=== PATIENT | male | born 1930 | race Caucasian/White ===

== ENCOUNTER 2018-11-10 12:20 | Emergency (ER) | payer MEDICARE, BC ==
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
[2018-11-10 12:30] VITALS: BP 132/60
[2018-11-10] MEDS: Silver Sulfadiazine 1% Crm 400 GM Jar TOP ONE (13:10)
[2018-11-10] MEDS: Diphtheria,Pertussis(Acell),Tetanus Vaccine 0.5 ML Syringe IM ONE (13:11)
== END 2018-11-10 13:35 | disposition home or self-care (01) ==
LOC: MW.ED 12:20
DX: T24.311A Burn of third degree of right thigh, initial encounter (principal); T31.0 Burns involving less than 10% of body surface; Z23 Encounter for immunization; I10 Essential (primary) hypertension; E78.00 Pure hypercholesterolemia, unspecified; I25.2 Old myocardial infarction; Z79.82 Long term (current) use of aspirin; Z79.899 Other long term (current) drug therapy; Z88.0 Allergy status to penicillin
CPT/HCPCS: 16020; 90471; 90715; 99283; A9270

== ENCOUNTER 2018-11-22 14:15 | Emergency (ER) | payer MEDICARE, BC ==
[2018-11-22] MEDS ORDERED: Sodium Chloride 0.9% 2.5 ML Syringe FLUSH PRN (14:57)
[2018-11-22] MEDS ORDERED: Sodium Chloride 0.9% 10 ML Syringe FLUSH PRN (14:57)
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
[2018-11-22] MEDS ORDERED: Sodium Chloride 0.9% 1,000 ML IV ONE (15:32)
--- NOTE | 2018-11-22 16:21 | CR ---
EXAMINATION: Abdominal series HISTORY: Constipation COMPARISON: None TECHNIQUE: AP and upright abdomen and AP chest FINDINGS: The lungs are clear without focal consolidation. Likely a trace right pleural effusion. Chronic interstitial prominence. The heart is borderline in size for technique. The cardiomediastinal silhouette is otherwise normal. There is no free air under the diaphragm. 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 No evidence of a small bowel obstruction. No calcifications project over the kidneys. No organomegaly. Osseous structures appear osteopenic. IMPRESSION: 1. Moderate amount of stool and gas within the colon most prominent within the rectum. 2. Possible trace right pleural effusion.
[2018-11-22 17:01] VITALS: BP 132/55
== END 2018-11-22 16:36 | disposition home or self-care (01) ==
LOC: MW.ED 14:15
DX: E86.0 Dehydration (principal); K59.00 Constipation, unspecified; E78.00 Pure hypercholesterolemia, unspecified; I10 Essential (primary) hypertension; I25.2 Old myocardial infarction; Z95.5 Presence of coronary angioplasty implant and graft; F17.210 Nicotine dependence, cigarettes, uncomplicated; Z79.82 Long term (current) use of aspirin; Z79.899 Other long term (current) drug therapy; Z79.01 Long term (current) use of anticoagulants
CPT/HCPCS: 36415; 74022; 80053; 85025; 96360; 99283; J7040; 99284

== ENCOUNTER 2019-01-08 08:38 | Emergency (ER) | payer MEDICARE, BC ==
--- NOTE | 2019-01-08 08:42 | EDM.PDOC ---
"ED HPI GENERAL MEDICAL PROBLEM - General Stated Complaint: weakness Time Seen by Provider: 01/08/19 08:42 Source of Information: Reports: Patient - History of Present Illness INITIAL COMMENTS - FREE TEXT/NARRATIVE: HISTORY AND PHYSICAL: History of present illness: []Patient reports that he is generally weak as he is 89 years old he is able ambulate in no distress He is in no distress no fever nausea vomiting chills sweats no chest pain shortness breath headache dizziness palpitation no urine symptoms, complains of constipation has not had a bowel movement in 3 days Review of systems: As per history of present illness and below otherwise all systems reviewed and negative. Past medical history: As per history of present illness and as reviewed below otherwise noncontributory. Surgical history: As per history of present illness and as reviewed below otherwise noncontributory. Social history: No reported history of drug or alcohol abuse. Family history: As per history of present illness and as reviewed below otherwise noncontributory. Physical exam: HEENT: Atraumatic, normocephalic, pupils reactive, negative for conjunctival pallor or scleral icterus, mucous membranes moist, throat clear, neck supple, nontender, trachea midline. Lungs: Clear to auscultation, breath sounds equal bilaterally, chest nontender. Heart: S1S2, regular, negative for clicks, rubs, or JVD. Abdomen: Soft, nondistended, nontender. Negative for masses or hepatosplenomegaly. Negative for costovertebral tenderness. Pelvis: Stable nontender. Genitourinary: Deferred. Rectal: Deferred. Extremities: Atraumatic, negative for cords or calf pain. Neurovascular unremarkable. Neuro: Awake, alert, oriented. Cranial nerves II through XII unremarkable. Cerebellum unremarkable. Motor and sensory unremarkable throughout. Exam nonfocal. Diagnostics: [CBC CMP UA troponin INR EKG Chest 1 view ] Therapeutics: [Normal saline 500 mL bolus Reglan 10 mg IV Reglan 5 mg by mouth daily when necessary MiraLAX] Clear liquid diet until bowel movement fruits and juices may assist in bowel movement Impression: Constipation [General Weakness] reported by patient |medical screening exam Definitive disposition and diagnosis as appropriate pending reevaluation and review of above. - Related Data Allergies Allergy/AdvReac Type Severity Reaction Status Date / Time Penicillins Allergy Syncope Verified 01/08/19 08:47 Home Meds: Home Meds Aspirin 1 tab PO DAILY 01/25/16 [History] Clopidogrel [Plavix] 1 tab PO DAILY 01/25/16 [History] Cod Liver Oil 1 tab PO DAILY 01/25/16 [History] Ergocalciferol (Vitamin D2) [Vitamin D] 2,000 mg PO DAILY 01/25/16 [History] Furosemide 1 tab PO DAILY 01/25/16 [History] Lisinopril 1 tab PO DAILY 01/25/16 [History] Metoprolol Succinate [Toprol XL] 1 tab PO DAILY 01/25/16 [History] Nitroglycerin [Nitrostat] 1 tab PO ASDIRECTED PRN 01/25/16 [History] Ranitidine [Zantac] 1 tab PO DAILY PRN 01/25/16 [History] Simvastatin [Zocor] 1 tab PO DAILY 01/25/16 [History] Sleep Aid 25 mg PO BEDTIME PRN 01/25/16 [History] amLODIPine [Norvasc] 1 tab PO DAILY 01/25/16 [History] Naproxen Sodium [All Day Pain Relief] 1 tab PO DAILY 01/08/19 [History] Ranitidine HCl [Ranitidine] 1 tab PO ASDIRECTED PRN 01/08/19 [History] Past Medical History HEENT History: Reports: Other (See Below) Other HEENT History: plugged ears about 8 years ago Cardiovascular History: Reports: High Cholesterol, Hypertension, [place] Respiratory History: Reports: None Gastrointestinal History: Reports: None Genitourinary History: Reports: None Musculoskeletal History: Reports: None Neurological History: Reports: Concussion Psychiatric History: Reports: None Endocrine/Metabolic History: Reports: None Hematologic History: Reports: None Immunologic History: Reports: None Oncologic (Cancer) History: Reports: Other (See Below) Other Oncologic History: 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 Dermatologic History: Reports: None - Past Surgical History Head Surgeries/Procedures: Reports: None HEENT Surgical History: Reports: None Cardiovascular Surgical History: Reports: Coronary Artery Stent Respiratory Surgical History: Reports: None GI Surgical History: Reports: None Male Surgical History: Reports: None Endocrine Surgical History: Reports: None Neurological Surgical History: Reports: None Musculoskeletal Surgical History: Reports: None Oncologic Surgical History: Reports: None Dermatological Surgical History: Reports: None Social & Family History - Family History Family Medical History: Noncontributory - Caffeine Use Caffeine Use: Reports: None ED ROS GENERAL - Review of Systems Review Of Systems: See Below ED EXAM, GENERAL - Physical Exam Exam: See Below Course - Vital Signs Last Recorded V/S: Last Vital Signs Temp 98.4 F 01/08/19 08:43 Pulse 84 01/08/19 08:43 Resp 20 01/08/19 08:43 BP 140/62 01/08/19 08:43 Pulse Ox 98 01/08/19 08:43 - Orders/Labs/Meds Orders: Active Orders 24 hr Category Date Time Status EKG Documentation Completion [RC] STAT Care 01/08/19 08:42 Active Sodium Chloride 0.9% [Normal Saline] 500 ml Med 01/08/19 09:00 Active IV STAT Medication Orders Sodium Chloride (Normal Saline) 500 mls @ 999 mls/hr IV STAT NETO Last Admin: 01/08/19 09:12 Dose: 999 mls/hr Labs: Laboratory Tests 01/08/19 01/08/19 01/08/19 Range/Units 09:05 09:05 09:05 WBC 8.05 (4.0-11.0) K/uL RBC 3.60 L (4.50-5.90) M/uL Hgb 11.5 L (13.0-17.0) g/dL Hct 33.9 L (38.0-50.0) % MCV 94.2 (80.0-98.0) fL MCH 31.9 (27.0-32.0) pg MCHC 33.9 (31.0-37.0) g/dL RDW Std Deviation 47.8 (28.0-62.0) fl RDW Coeff of Dalila 14 (11.0-15.0) % Plt Count 232 (150-400) K/uL MPV 9.30 (7.40-12.00) fL Neut % (Auto) 72.1 (48.0-80.0) % Lymph % (Auto) 18.9 (16.0-40.0) % [place] % (Auto) 7.8 (0.0-15.0) % Eos % (Auto) 1.0 (0.0-7.0) % Baso % (Auto) 0.2 (0.0-1.5) % Neut # (Auto) 5.8 H (1.4-5.7) K/uL Lymph # (Auto) 1.5 (0.6-2.4) K/uL [place] # (Auto) 0.6 (0.0-0.8) K/uL Eos # (Auto) 0.1 (0.0-0.7) K/uL Baso # (Auto) 0.0 (0.0-0.1) K/uL Nucleated RBC % 0.0 /100WBC Nucleated RBCs # 0 K/uL INR 1.12 Sodium 131 L (136-148) mmol/L Potassium 4.5 (3.5-5.1) mmol/L Chloride 99 (98-107) mmol/L Carbon Dioxide 21.0 (21.0-32.0) mmol/L BUN 18 (7.0-18.0) mg/dL Creatinine 1.8 H (0.8-1.3) mg/dL Est Cr Clr Drug Dosing 25.60 mL/min Estimated GFR (MDRD) 35.8 ml/min Glucose 133 H (74-106) mg/dL Calcium 9.1 (8.5-10.1) mg/dL Total Bilirubin 0.4 (0.2-1.0) mg/dL AST 13 L (15-37) IU/L ALT 11 L (14-63) IU/L Alkaline Phosphatase 81 (46-116) U/L Troponin I < 0.050 (0.000-0.056) ng/mL Total Protein 7.3 (6.4-8.2) g/dL Albumin 3.5 (3.4-5.0) g/dL Globulin 3.8 (2.6-4.0) g/dL Albumin/Globulin Ratio 0.9 (0.9-1.6) Urine Color Urine Appearance Urine pH (5.0-8.0) Ur Specific [place] (1.001-1.035) Urine Protein (NEGATIVE) mg/dL Urine Glucose (UA) (NEGATIVE) mg/dL Urine Ketones (NEGATIVE) mg/dL Urine Occult Blood (NEGATIVE) Urine Nitrite (NEGATIVE) Urine Bilirubin (NEGATIVE) Urine Urobilinogen (<2.0) EU/dL Ur Leukocyte Esterase (NEGATIVE) Urine RBC (0-2/HPF) Urine WBC (0-5/HPF) Ur Epithelial Cells (NONE-FEW) Urine Bacteria (NEGATIVE) Urine Mucus (NONE-MOD) 01/08/19 Range/Units 10:00 WBC (4.0-11.0) K/uL RBC (4.50-5.90) M/uL Hgb (13.0-17.0) g/dL Hct (38.0-50.0) % MCV (80.0-98.0) fL MCH (27.0-32.0) pg MCHC (31.0-37.0) g/dL RDW Std Deviation (28.0-62.0) fl RDW Coeff of Dalila (11.0-15.0) % Plt Count (150-400) K/uL MPV (7.40-12.00) fL Neut % (Auto) (48.0-80.0) % Lymph % (Auto) (16.0-40.0) % [place] % (Auto) (0.0-15.0) % Eos % (Auto) (0.0-7.0) % Baso % (Auto) (0.0-1.5) % Neut # (Auto) (1.4-5.7) K/uL Lymph # (Auto) (0.6-2.4) K/uL [place] # (Auto) (0.0-0.8) K/uL Eos # (Auto) (0.0-0.7) K/uL Baso # (Auto) (0.0-0.1) K/uL Nucleated RBC % /100WBC Nucleated RBCs # K/uL INR Sodium (136-148) mmol/L Potassium (3.5-5.1) mmol/L Chloride (98-107) mmol/L Carbon Dioxide (21.0-32.0) mmol/L BUN (7.0-18.0) mg/dL Creatinine (0.8-1.3) mg/dL Est Cr Clr Drug Dosing mL/min Estimated GFR (MDRD) ml/min Glucose (74-106) mg/dL Calcium (8.5-10.1) mg/dL Total Bilirubin (0.2-1.0) mg/dL AST (15-37) IU/L ALT (14-63) IU/L Alkaline Phosphatase (46-116) U/L Troponin I (0.000-0.056) ng/mL Total Protein (6.4-8.2) g/dL Albumin (3.4-5.0) g/dL Globulin (2.6-4.0) g/dL Albumin/Globulin Ratio (0.9-1.6) Urine Color YELLOW Urine Appearance CLEAR Urine pH 5.5 (5.0-8.0) Ur Specific [place] <= 1.005 (1.001-1.035) Urine Protein NEGATIVE (NEGATIVE) mg/dL Urine Glucose (UA) NEGATIVE (NEGATIVE) mg/dL Urine Ketones NEGATIVE (NEGATIVE) mg/dL Urine Occult Blood TRACE-INTACT H (NEGATIVE) Urine Nitrite NEGATIVE (NEGATIVE) Urine Bilirubin NEGATIVE (NEGATIVE) Urine Urobilinogen 0.2 (<2.0) EU/dL Ur Leukocyte Esterase NEGATIVE (NEGATIVE) Urine RBC RARE (0-2/HPF) Urine WBC NONE SEEN (0-5/HPF) Ur Epithelial Cells FEW (NONE-FEW) Urine Bacteria FEW (NEGATIVE) Urine Mucus LIGHT (NONE-MOD) Meds: Medications Generic Name Dose Route Start Last Admin Trade Name Kamran PRN Reason Stop Dose Admin Sodium Chloride 500 mls @ 999 mls/hr 01/08/19 09:00 01/08/19 09:12 Normal Saline IV 999 mls/hr STAT NETO Administration Discontinued Medications Generic Name Dose Route Start Last Admin Trade Name Kamran PRN Reason Stop Dose Admin Metoclopramide HCl 10 mg 01/08/19 10:01 01/08/19 10:13 Reglan IV 01/08/19 10:02 10 mg ONETIME ONE Administration Departure - Departure Time of Disposition: 10:25 Disposition: Home, Self-Care 01 Condition: Good Clinical Impression: Constipation Qualifiers: Constipation type: unspecified constipation type Qualified Code(s): K59.00 - Constipation, unspecified - Discharge Information Referrals: Kranthi Lim MD [Primary Care Provider] - Additional Instructions: MiraLAX 17 g by mouth daily as needed Clear liquid dieT until bowel movement Fruits and juices would be acceptable and may assist in bowel movement Medication as prescribed The following information is given to patients seen in the emergency department who are being discharged to home. This information is to outline your options for follow-up care. We provide all patients seen in our emergency department with a follow-up referral. The need for follow-up, as well as the timing and circumstances, are variable depending upon the specifics of your emergency department visit. If you don't have a primary care physician on staff, we will provide you with a referral. We always advise you to contact your personal physician following an emergency department visit to inform them of the circumstance of the visit and for follow-up with them and/or the need for any referrals to a consulting specialist. The emergency department will also refer you to a specialist when appropriate. This referral assures that you have the opportunity for follow-up care with a specialist. All of these measure are taken in an effort to provide you with optimal care, which includes your follow-up. Under all circumstances we always encourage you to contact your private physician who remains a resource for coordinating your care. When calling for follow-up care, please make the office aware that this follow-up is from your recent emergency room visit. If for any reason you are refused follow-up, please contact the [facility] emergency department at and asked to speak to the emergency department charge nurse. - My Orders Last 24 Hours: My Active Orders 01/08/19 08:42 EKG Documentation Completion [RC] STAT 01/08/19 09:00 Sodium Chloride 0.9% [Normal Saline] 500 ml IV STAT - Assessment/Plan Last 24 Hours: My Active Orders 01/08/19 08:42 EKG Documentation Completion [RC] STAT 01/08/19 09:00 Sodium Chloride 0.9% [Normal Saline] 500 ml IV STAT"
[2019-01-08] MEDS ORDERED: Sodium Chloride 0.9% 500 ML IV SCH (09:00)
[2019-01-08] MEDS ORDERED: Metoclopramide 10 MG/2 ML SDV IV ONE (10:01)
--- NOTE | 2019-01-08 10:14 | CR ---
INDICATION: Pain TECHNIQUE: Single view chest. FINDINGS: The lungs are clear. The heart, mediastinum and pulmonary vessels are of normal size. There is no evidence of pleural disease. IMPRESSION: No acute pulmonary process. Dictated by Vero Foote MD @ Jan 08 2019 10:12AM Signed by Dr. Vero Foote @ Jan 08 2019 10:13AM
[2019-01-08 10:15] LABS: CHLORIDE,CL 99 mmol/L (98-107); SODIUM,NA 131 mmol/L (136-148)
--- NOTE | 2019-01-08 10:16 | CR ---
Pain. KUB. Paucity of bowel gas. Abundant stool in the right colon. Air within nondilated loops bowel to level of the rectum. No free air. No abnormal masses or calcifications are seen. IMPRESSION: Nonspecific nonobstructive bowel gas pattern. Dictated by Vero Foote MD @ Jan 08 2019 10:13AM Signed by Dr. Vero Foote @ Jan 08 2019 10:14AM
[2019-01-08 11:39] VITALS: BP 126/54
== END 2019-01-08 10:50 | disposition home or self-care (01) ==
LOC: MW.ED 08:38
DX: K59.00 Constipation, unspecified (principal); R53.1 Weakness; I10 Essential (primary) hypertension; I25.2 Old myocardial infarction; Z95.5 Presence of coronary angioplasty implant and graft; Z88.0 Allergy status to penicillin; Z79.82 Long term (current) use of aspirin; Z79.899 Other long term (current) drug therapy
CPT/HCPCS: 71045; 74019; 80053; 81001; 84484; 85025; 85610; 93005; 96361; 96374; 99285; J2765; J7040; 99284

== ENCOUNTER 2019-02-18 15:19 | Observation (INO) | payer MEDICARE, BC ==
[2019-02-18] MEDS ORDERED: Sodium Chloride 0.9% 1,000 ML IV ONE (16:36)
--- NOTE | 2019-02-18 17:25 | CR ---
Indication: Pain, shortness of breath Technique: Chest 1 view Comparison: January 08, 2019 Findings/Impression: Cardiovascular and mediastinum: Heart size and vasculature are normal in caliber and appearance. Mediastinum is within normal limits. Lungs and pleural space: Lungs are clear. No sign of infiltrate or mass. No sign of pleural effusion. No pneumothorax. Bones and soft tissues: No significant findings. Dictated by Dana Crum MD @ Feb 18 2019 5:23PM Signed by Dr. Dana Crum @ Feb 18 2019 5:23PM
--- NOTE | 2019-02-18 17:25 | CR ---
Indication: Pain Technique: Two views right shoulder Comparison: None Findings: Bones: Alignment is normal. No fractures or bone lesions. Joint spaces: Mild degenerative changes in the acromioclavicular and glenohumeral joints. Soft tissues: Unremarkable. Impression: No acute abnormality. Dictated by Dana Crum MD @ Feb 18 2019 5:23PM Signed by Dr. Dana Crum @ Feb 18 2019 5:24PM
--- NOTE | 2019-02-18 17:37 | CT ---
INDICATION: Fall. COMPARISON: None. TECHNIQUE: Axial CT of the head without contrast. FINDINGS: Moderate generalized volume loss. Patchy low-attenuation change within the white matter consistent with chronic small vessel ischemic changes. No acute intracranial hemorrhage, acute infarct, mass effect, or fracture. No midline shift. No abnormal ventricular dilatation. Normal calvarium and skull base. Complete opacification of the right sphenoid sinuses. Remaining visualized paranasal sinuses and mastoid air cells are unremarkable. IMPRESSION: 1. No acute intracranial abnormality. 2. Moderate generalized cerebral volume loss. Chronic deep white matter small ischemic changes 3. Right sphenoid sinusitis Please note that all CT scans at this facility use dose modulation, iterative reconstruction, and/or weight-based dosing when appropriate to reduce radiation dose to as low as reasonably achievable. Dictated by Angel Betts MD @ Feb 18 2019 5:35PM Signed by Dr. Angel Betts @ Feb 18 2019 5:36PM
--- NOTE | 2019-02-18 17:41 | EDM.PDOC ---
ED HPI GENERAL MEDICAL PROBLEM - General Chief Complaint: General Stated Complaint: NOT FEELING WELL Time Seen by Provider: 02/18/19 15:20 Source of Information: Reports: Patient, Family History Limitations: Reports: No Limitations - History of Present Illness INITIAL COMMENTS - FREE TEXT/NARRATIVE: HISTORY AND PHYSICAL: History of present illness: Patient is an 89-year-old male presents to the ED today for concern of general malaise and right shoulder pain, and neck pain that occurred after a fall 4 days ago. Patient states over the last week generally he has not been feeling as well and describes it as more tired and run down. Patient states he was working on equipment and he was on a step stool and had fallen 4 days ago but is not really sure how he fell. Patient states since then he's had right shoulder pain and neck pain. Patient states he is unsure if he hit his head or lost consciousness. Patient states since then he's had some general dizziness and malaise. Patient denies any other health history or symptoms. Patient denies fever, chills, chest pain, shortness of breath, or cough. Denies headache, neck stiff ness, change in vision, syncope, or near syncope. Denies nausea, vomiting, abdominal pain, diarrhea, constipation, or dysuria. Has not noted any blood in urine or stool. Patient has been eating and drinking appropriately. Review of systems: As per history of present illness and below otherwise all systems reviewed and negative. Past medical history: As per history of present illness and as reviewed below otherwise noncontributory. Surgical history: As per history of present illness and as reviewed below otherwise noncontributory. Social history: See social history for further information Family history: As per history of present illness and as reviewed below otherwise noncontributory. Physical exam: General: Patient is alert, oriented, and in no acute distress. Patient sitting comfortably on exam table. HEENT: Atraumatic, normocephalic, pupils equal and reactive bilaterally, negative for conjunctival pallor or scleral icterus, mucous membranes moist, TMs normal bilaterally, throat clear, neck supple, nontender, trachea midline. No drooling or trismus noted. No meningeal signs. No hot potato voice noted. Lungs: Clear to auscultation, breath sounds equal bilaterally, chest nontender. Heart: S1S2, regular rate and rhythm without overt murmur Abdomen: Soft, nondistended, nontender. Negative for masses or hepatosplenomegaly. Negative for costovertebral tenderness. Pelvis: Stable nontender. Genitourinary: Deferred. Rectal: Deferred. Skin: Intact, warm, dry. No lesions or rashes noted. Extremities: negative for cords or calf pain. Neurovascular unremarkable. Patient does have a area of bruising on his superior shoulder. Patient has full range of motion of both right and left extremities without deficit. No obvious deformities of the spine, no step-offs, crepitus, or pain to palpation of the complete spine. Patient does have full range of motion in his spine. Neuro: Awake, alert, oriented. Cranial nerves II through XII unremarkable. Cerebellum unremarkable. Motor and sensory unremarkable throughout. Exam nonfocal. Notes: Dr. Hare, neurosurgeon esl instructional assistant for [facility], consulted on patient. Discussed patients case throughly and per Dr. Hare, soft collar placement and pain management as this is a stable fracture not requiring further treatment. Soft collar placed on patient. Dr. Vargas consulted on patient and will admit to observation. Voices understanding and is agreeable to plan of care. Denies any further questions or concerns at this time. Diagnostics: CBC, CMP, UA, EKG, troponin, head CT, cervical spine CT, shoulder x-ray, chest x -ray, orthostatic vitals Therapeutics: Normal saline Impression: Acute non-displaced fracture of left lateral mass of C2 Hyponatremia Increased risk for falls Plan: 1. Admit to observation to Dr. Vargas. Definitive disposition and diagnosis as appropriate pending reevaluation and review of above. Neck Pain Score (Numeric/FACES): 4 - Related Data Allergies Allergy/AdvReac Type Severity Reaction Status Date / Time Penicillins Allergy Syncope Verified 02/18/19 16:05 Home Meds: Home Meds Aspirin 1 tab PO DAILY 01/25/16 [History] Clopidogrel [Plavix] 1 tab PO DAILY 01/25/16 [History] Cod Liver Oil 1 tab PO DAILY 01/25/16 [History] Ergocalciferol (Vitamin D2) [Vitamin D] 2,000 mg PO DAILY 01/25/16 [History] Furosemide 1 tab PO DAILY 01/25/16 [History] Lisinopril 1 tab PO DAILY 01/25/16 [History] Metoprolol Succinate [Toprol XL] 1 tab PO DAILY 01/25/16 [History] Nitroglycerin [Nitrostat] 1 tab PO ASDIRECTED PRN 01/25/16 [History] Ranitidine [Zantac] 1 tab PO DAILY PRN 01/25/16 [History] Simvastatin [Zocor] 1 tab PO DAILY 01/25/16 [History] Sleep Aid 25 mg PO BEDTIME PRN 01/25/16 [History] amLODIPine [Norvasc] 1 tab PO DAILY 01/25/16 [History] Naproxen Sodium [All Day Pain Relief] 1 tab PO DAILY 01/08/19 [History] Ranitidine HCl [Ranitidine] 1 tab PO ASDIRECTED PRN 01/08/19 [History] Past Medical History HEENT History: Reports: Other (See Below) Other HEENT History: plugged ears about 8 years ago Cardiovascular History: Reports: High Cholesterol, Hypertension, [place] Respiratory History: Reports: None Gastrointestinal History: Reports: None Genitourinary History: Reports: None Musculoskeletal History: Reports: None Neurological History: Reports: Concussion Psychiatric History: Reports: None Endocrine/Metabolic History: Reports: None Hematologic History: Reports: None Immunologic History: Reports: None Oncologic (Cancer) History: Reports: Other (See Below) Other Oncologic History: 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 Dermatologic History: Reports: None - Infectious Disease History Infectious Disease History: Reports: Chicken Pox, Measles, Mumps - Past Surgical History Head Surgeries/Procedures: Reports: None HEENT Surgical History: Reports: None Cardiovascular Surgical History: Reports: Coronary Artery Stent Respiratory Surgical History: Reports: None GI Surgical History: Reports: None Male Surgical History: Reports: None Endocrine Surgical History: Reports: None Neurological Surgical History: Reports: None Musculoskeletal Surgical History: Reports: None Oncologic Surgical History: Reports: None Dermatological Surgical History: Reports: None Social & Family History - Family History Family Medical History: Noncontributory - Tobacco Use Smoking Status *Q: Current Every Day Smoker Years of Tobacco use: 70 Packs/Tins Daily: 1 - Caffeine Use Caffeine Use: Reports: None - Recreational Drug Use Recreational Drug Use: No ED ROS GENERAL - Review of Systems Review Of Systems: ROS reveals no pertinent complaints other than HPI. ED EXAM, GENERAL - Physical Exam Exam: See Below (see dictation) Course - Vital Signs Last Recorded V/S: Last Vital Signs Temp 36.4 C 02/18/19 16:02 Pulse 91 02/18/19 16:02 Resp 18 02/18/19 16:02 BP 139/63 02/18/19 16:02 Pulse Ox 97 02/18/19 16:02 - Orders/Labs/Meds Orders: Active Orders 24 hr Category Date Time Status EKG Documentation Completion [RC] STAT Care 02/18/19 16:35 Active Orthostatic Vital Signs [RC] ASDIRECTED Care 02/18/19 16:35 Active Sodium Chloride 0.9% [Normal Saline] 1,000 ml Med 02/18/19 16:36 Active IV STAT Medication Orders Sodium Chloride (Normal Saline) 1,000 mls @ 500 mls/hr IV STAT ONE Stop: 02/18/19 18:35 Last Admin: 02/18/19 17:25 Dose: 500 mls/hr Labs: Laboratory Tests 02/18/19 02/18/19 02/18/19 Range/Units 16:50 16:50 16:50 WBC 10.93 (4.0-11.0) K/uL RBC 4.14 L (4.50-5.90) M/uL Hgb 13.2 (13.0-17.0) g/dL Hct 37.5 L (38.0-50.0) % MCV 90.6 (80.0-98.0) fL MCH 31.9 (27.0-32.0) pg MCHC 35.2 (31.0-37.0) g/dL RDW Std Deviation 42.0 (28.0-62.0) fl RDW Coeff of Dalila 13 (11.0-15.0) % Plt Count 271 (150-400) K/uL MPV 8.90 (7.40-12.00) fL Neut % (Auto) 78.1 (48.0-80.0) % Lymph % (Auto) 12.2 L (16.0-40.0) % [place] % (Auto) 8.9 (0.0-15.0) % Eos % (Auto) 0.5 (0.0-7.0) % Baso % (Auto) 0.3 (0.0-1.5) % Neut # (Auto) 8.5 H (1.4-5.7) K/uL Lymph # (Auto) 1.3 (0.6-2.4) K/uL [place] # (Auto) 1.0 H (0.0-0.8) K/uL Eos # (Auto) 0.1 (0.0-0.7) K/uL Baso # (Auto) 0.0 (0.0-0.1) K/uL Nucleated RBC % 0.0 /100WBC Nucleated RBCs # 0 K/uL Sodium 125 L (136-148) mmol/L Potassium 5.0 (3.5-5.1) mmol/L Chloride 92 L (98-107) mmol/L Carbon Dioxide 23.7 (21.0-32.0) mmol/L BUN 22 H (7.0-18.0) mg/dL Creatinine 1.6 H (0.8-1.3) mg/dL Est Cr Clr Drug Dosing 28.11 mL/min Estimated GFR (MDRD) 40.9 ml/min Glucose 114 H (74-106) mg/dL Calcium 9.5 (8.5-10.1) mg/dL Total Bilirubin 0.6 (0.2-1.0) mg/dL AST 13 L (15-37) IU/L ALT 14 (14-63) IU/L Alkaline Phosphatase 89 (46-116) U/L Troponin I < 0.050 (0.000-0.056) ng/mL Total Protein 8.3 H (6.4-8.2) g/dL Albumin 4.1 (3.4-5.0) g/dL Globulin 4.2 H (2.6-4.0) g/dL Albumin/Globulin Ratio 1.0 (0.9-1.6) Urine Color Urine Appearance Urine pH (5.0-8.0) Ur Specific [place] (1.001-1.035) Urine Protein (NEGATIVE) mg/dL Urine Glucose (UA) (NEGATIVE) mg/dL Urine Ketones (NEGATIVE) mg/dL Urine Occult Blood (NEGATIVE) Urine Nitrite (NEGATIVE) Urine Bilirubin (NEGATIVE) Urine Urobilinogen (<2.0) EU/dL Ur Leukocyte Esterase (NEGATIVE) Urine RBC (0-2/HPF) Urine WBC (0-5/HPF) Ur Epithelial Cells (NONE-FEW) Urine Bacteria (NEGATIVE) 02/18/19 Range/Units 17:28 WBC (4.0-11.0) K/uL RBC (4.50-5.90) M/uL Hgb (13.0-17.0) g/dL Hct (38.0-50.0) % MCV (80.0-98.0) fL MCH (27.0-32.0) pg MCHC (31.0-37.0) g/dL RDW Std Deviation (28.0-62.0) fl RDW Coeff of Dalila (11.0-15.0) % Plt Count (150-400) K/uL MPV (7.40-12.00) fL Neut % (Auto) (48.0-80.0) % Lymph % (Auto) (16.0-40.0) % [place] % (Auto) (0.0-15.0) % Eos % (Auto) (0.0-7.0) % Baso % (Auto) (0.0-1.5) % Neut # (Auto) (1.4-5.7) K/uL Lymph # (Auto) (0.6-2.4) K/uL [place] # (Auto) (0.0-0.8) K/uL Eos # (Auto) (0.0-0.7) K/uL Baso # (Auto) (0.0-0.1) K/uL Nucleated RBC % /100WBC Nucleated RBCs # K/uL Sodium (136-148) mmol/L Potassium (3.5-5.1) mmol/L Chloride (98-107) mmol/L Carbon Dioxide (21.0-32.0) mmol/L BUN (7.0-18.0) mg/dL Creatinine (0.8-1.3) mg/dL Est Cr Clr Drug Dosing mL/min Estimated GFR (MDRD) ml/min Glucose (74-106) mg/dL Calcium (8.5-10.1) mg/dL Total Bilirubin (0.2-1.0) mg/dL AST (15-37) IU/L ALT (14-63) IU/L Alkaline Phosphatase (46-116) U/L Troponin I (0.000-0.056) ng/mL Total Protein (6.4-8.2) g/dL Albumin (3.4-5.0) g/dL Globulin (2.6-4.0) g/dL Albumin/Globulin Ratio (0.9-1.6) Urine Color YELLOW Urine Appearance CLEAR Urine pH 5.0 (5.0-8.0) Ur Specific [place] <= 1.005 (1.001-1.035) Urine Protein NEGATIVE (NEGATIVE) mg/dL Urine Glucose (UA) NEGATIVE (NEGATIVE) mg/dL Urine Ketones NEGATIVE (NEGATIVE) mg/dL Urine Occult Blood TRACE-INTACT H (NEGATIVE) Urine Nitrite NEGATIVE (NEGATIVE) Urine Bilirubin NEGATIVE (NEGATIVE) Urine Urobilinogen 0.2 (<2.0) EU/dL Ur Leukocyte Esterase NEGATIVE (NEGATIVE) Urine RBC 0-2 (0-2/HPF) Urine WBC 0-1 (0-5/HPF) Ur Epithelial Cells RARE (NONE-FEW) Urine Bacteria RARE (NEGATIVE) Meds: Medications Generic Name Dose Route Start Last Admin Trade Name Freq PRN Reason Stop Dose Admin Sodium Chloride 1,000 mls @ 500 mls/hr 02/18/19 16:36 02/18/19 17:25 Normal Saline IV 02/18/19 18:35 500 mls/hr STAT ONE Administration Departure - Departure Time of Disposition: 18:27 Disposition: Refer to Observation Clinical Impression: Hyponatremia, Risk for falls C2 cervical fracture Qualifiers: Encounter type: initial encounter Fracture type: closed Fracture morphology: unspecified fracture morphology Fracture alignment: nondisplaced Qualified Code( s): S12.101A - Unspecified nondisplaced fracture of second cervical vertebra, initial encounter for closed fracture - Discharge Information - My Orders Last 24 Hours: My Active Orders 02/18/19 16:35 EKG Documentation Completion [RC] STAT Orthostatic Vital Signs [RC] ASDIRECTED 02/18/19 16:36 Sodium Chloride 0.9% [Normal Saline] 1,000 ml IV STAT - Assessment/Plan Last 24 Hours: My Active Orders 02/18/19 16:35 EKG Documentation Completion [RC] STAT Orthostatic Vital Signs [RC] ASDIRECTED 02/18/19 16:36 Sodium Chloride 0.9% [Normal Saline] 1,000 ml IV STAT
--- NOTE | 2019-02-18 18:01 | CT ---
INDICATION: Status post fall 4 days ago. Neck pain. COMPARISON: COMPARISON DATE TECHNIQUE: CT examination of the cervical spine is performed without contrast using spiral technique. 2 mm thick axial, sagittal and coronal reconstructions were made. Please note that all CT scans at this facility use dose modulation, iterative reconstruction, and/or weight-based dosing when appropriate to reduce radiation dose to as low as reasonably achievable. FINDINGS: : Please note that the C1-2 articulation and the craniocervical junction are not included on today`s exam. These regions are examined in a satisfactory manner on the accompanying CT of the head and are unremarkable. There is an acute, oblique, nondisplaced fracture of the left lateral mass of C2, extending into the posterior left vertebral body. There is no sign of additional fracture or subluxation. The cervical vertebral bodies and intervertebral discs are normal in height and are in anatomic alignment. There is no sign of prevertebral soft tissue swelling. There is mild anterior ligamentous ossification at C5-6 and C6-7. There is mild facet arthropathy scattered throughout the mid and upper cervical spine. The airway structures are normal in appearance. The visualized skull base is normal in appearance. Brain detail is extremely limited by the use of bone technique, but no gross abnormality is seen. The apices of the lungs are clear. The findings were discussed with Dr. Geller at 1800 hours on 02/18/2019. IMPRESSION: Acute, oblique, nondisplaced fracture of the left lateral mass of C2, extending into the posterior left vertebral body. No sign of any additional acute osseous injury to the cervical spine. Minor degenerative changes as described above. Please note that all CT scans at this facility use dose modulation, iterative reconstruction, and/or weight-based dosing when appropriate to reduce radiation dose to as low as reasonably achievable. Dictated by Willie Sandhu MD @ Feb 18 2019 5:50PM Signed by Dr. Willie Sandhu @ Feb 18 2019 6:00PM
[2019-02-18] MEDS ORDERED: Sodium Chloride 0.9% 1,000 ML IV SCH (20:15)
--- NOTE | 2019-02-18 20:24 | PCM.HP ---
H&P History of Present Illness - General Date of Service: 02/18/19 Admit Problem/Dx: Admission Diagnosis/Problem Admission Diagnosis/Problem Hyponatremia - History of Present Illness Initial Comments - Free Text/Narative: 89 yo male with pmh of [place] 11 years ago who presents to the ED four days after a fall. Patient states he was working on a tractor and fell when he stepped on a step stool accidentally. He complains of neck pain. He denies any dizziness, lightheadedness, numbness or weakness. He was found to have a sodium of 125 and creatinine of 1.6. CT neck revealed nondisplaced fracture of the left lateral mass of C2. Dr. Giron the neurosurgeon from [place] was called and recommended soft collar. Neck Pain Score (Numeric/FACES): 4 - Related Data Allergies/Adverse Reactions: Allergies Allergy/AdvReac Type Severity Reaction Status Date / Time Penicillins Allergy Syncope Verified 02/18/19 16:05 Home Medications: Home Meds Aspirin 1 tab PO DAILY 01/25/16 [History] Clopidogrel [Plavix] 1 tab PO DAILY 01/25/16 [History] Cod Liver Oil 1 tab PO DAILY 01/25/16 [History] Ergocalciferol (Vitamin D2) [Vitamin D] 2,000 mg PO DAILY 01/25/16 [History] Furosemide 1 tab PO DAILY 01/25/16 [History] Lisinopril 1 tab PO DAILY 01/25/16 [History] Metoprolol Succinate [Toprol XL] 1 tab PO DAILY 01/25/16 [History] Nitroglycerin [Nitrostat] 1 tab PO ASDIRECTED PRN 01/25/16 [History] Ranitidine [Zantac] 1 tab PO DAILY PRN 01/25/16 [History] Simvastatin [Zocor] 1 tab PO DAILY 01/25/16 [History] Sleep Aid 25 mg PO BEDTIME PRN 01/25/16 [History] amLODIPine [Norvasc] 1 tab PO DAILY 01/25/16 [History] Naproxen Sodium [All Day Pain Relief] 1 tab PO DAILY 01/08/19 [History] Ranitidine HCl [Ranitidine] 1 tab PO ASDIRECTED PRN 01/08/19 [History] Past Medical History HEENT History: Reports: Other (See Below) Other HEENT History: plugged ears about 8 years ago Cardiovascular History: Reports: High Cholesterol, Hypertension, [place] Respiratory History: Reports: None Gastrointestinal History: Reports: None Genitourinary History: Reports: None Musculoskeletal History: Reports: None Neurological History: Reports: Concussion Psychiatric History: Reports: None Endocrine/Metabolic History: Reports: None Hematologic History: Reports: None Immunologic History: Reports: None Oncologic (Cancer) History: Reports: Other (See Below) Other Oncologic History: 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 Dermatologic History: Reports: None - Infectious Disease History Infectious Disease History: Reports: Chicken Pox, Measles, Mumps - Past Surgical History Head Surgeries/Procedures: Reports: None HEENT Surgical History: Reports: None Cardiovascular Surgical History: Reports: Coronary Artery Stent Respiratory Surgical History: Reports: None GI Surgical History: Reports: None Male Surgical History: Reports: None Endocrine Surgical History: Reports: None Neurological Surgical History: Reports: None Musculoskeletal Surgical History: Reports: None Oncologic Surgical History: Reports: None Dermatological Surgical History: Reports: None Social & Family History - Family History Family Medical History: Noncontributory - Tobacco Use Smoking Status *Q: Current Every Day Smoker Years of Tobacco use: 70 Packs/Tins Daily: 1 - Caffeine Use Caffeine Use: Reports: None - Recreational Drug Use Recreational Drug Use: No H&P Review of Systems - Review of Systems: Review Of Systems: ROS reveals no pertinent complaints other than HPI. Exam - Exam Exam: See Below - Vital Signs Vital Signs: Last Vital Signs Temp 36.4 C 02/18/19 16:02 Pulse 78 02/18/19 19:12 Resp 18 02/18/19 16:02 BP 153/66 H 02/18/19 19:12 Pulse Ox 95 02/18/19 19:12 Weight: 63.503 kg - Exam General: Alert, Oriented HEENT: Conjunctiva Clear Neck: Supple Lungs: Clear to Auscultation, Normal Respiratory Effort Cardiovascular: Regular Rate, Regular Rhythm GI/Abdominal Exam: Normal Bowel Sounds, Soft, Non-Tender Extremities: Non-Tender, No Pedal Edema Skin: Warm, Dry, Intact Neurological: Cranial Nerves Intact, Strength Equal Bilateral. No: Focal Deficit - Patient Data Lab Results Last 24 hrs: Laboratory Results - last 24 hr 02/18/19 02/18/19 02/18/19 Range/Units 16:50 16:50 16:50 WBC 10.93 (4.0-11.0) K/uL RBC 4.14 L (4.50-5.90) M/uL Hgb 13.2 (13.0-17.0) g/dL Hct 37.5 L (38.0-50.0) % MCV 90.6 (80.0-98.0) fL MCH 31.9 (27.0-32.0) pg MCHC 35.2 (31.0-37.0) g/dL RDW Std Deviation 42.0 (28.0-62.0) fl RDW Coeff of Dalila 13 (11.0-15.0) % Plt Count 271 (150-400) K/uL MPV 8.90 (7.40-12.00) fL Neut % (Auto) 78.1 (48.0-80.0) % Lymph % (Auto) 12.2 L (16.0-40.0) % [place] % (Auto) 8.9 (0.0-15.0) % Eos % (Auto) 0.5 (0.0-7.0) % Baso % (Auto) 0.3 (0.0-1.5) % Neut # (Auto) 8.5 H (1.4-5.7) K/uL Lymph # (Auto) 1.3 (0.6-2.4) K/uL [place] # (Auto) 1.0 H (0.0-0.8) K/uL Eos # (Auto) 0.1 (0.0-0.7) K/uL Baso # (Auto) 0.0 (0.0-0.1) K/uL Nucleated RBC % 0.0 /100WBC Nucleated RBCs # 0 K/uL Sodium 125 L (136-148) mmol/L Potassium 5.0 (3.5-5.1) mmol/L Chloride 92 L (98-107) mmol/L Carbon Dioxide 23.7 (21.0-32.0) mmol/L BUN 22 H (7.0-18.0) mg/dL Creatinine 1.6 H (0.8-1.3) mg/dL Est Cr Clr Drug Dosing 28.11 mL/min Estimated GFR (MDRD) 40.9 ml/min Glucose 114 H (74-106) mg/dL Calcium 9.5 (8.5-10.1) mg/dL Total Bilirubin 0.6 (0.2-1.0) mg/dL AST 13 L (15-37) IU/L ALT 14 (14-63) IU/L Alkaline Phosphatase 89 (46-116) U/L Troponin I < 0.050 (0.000-0.056) ng/mL Total Protein 8.3 H (6.4-8.2) g/dL Albumin 4.1 (3.4-5.0) g/dL Globulin 4.2 H (2.6-4.0) g/dL Albumin/Globulin Ratio 1.0 (0.9-1.6) Urine Color Urine Appearance Urine pH (5.0-8.0) Ur Specific [place] (1.001-1.035) Urine Protein (NEGATIVE) mg/dL Urine Glucose (UA) (NEGATIVE) mg/dL Urine Ketones (NEGATIVE) mg/dL Urine Occult Blood (NEGATIVE) Urine Nitrite (NEGATIVE) Urine Bilirubin (NEGATIVE) Urine Urobilinogen (<2.0) EU/dL Ur Leukocyte Esterase (NEGATIVE) Urine RBC (0-2/HPF) Urine WBC (0-5/HPF) Ur Epithelial Cells (NONE-FEW) Urine Bacteria (NEGATIVE) 02/18/19 Range/Units 17:28 WBC (4.0-11.0) K/uL RBC (4.50-5.90) M/uL Hgb (13.0-17.0) g/dL Hct (38.0-50.0) % MCV (80.0-98.0) fL MCH (27.0-32.0) pg MCHC (31.0-37.0) g/dL RDW Std Deviation (28.0-62.0) fl RDW Coeff of Dalila (11.0-15.0) % Plt Count (150-400) K/uL MPV (7.40-12.00) fL Neut % (Auto) (48.0-80.0) % Lymph % (Auto) (16.0-40.0) % [place] % (Auto) (0.0-15.0) % Eos % (Auto) (0.0-7.0) % Baso % (Auto) (0.0-1.5) % Neut # (Auto) (1.4-5.7) K/uL Lymph # (Auto) (0.6-2.4) K/uL [place] # (Auto) (0.0-0.8) K/uL Eos # (Auto) (0.0-0.7) K/uL Baso # (Auto) (0.0-0.1) K/uL Nucleated RBC % /100WBC Nucleated RBCs # K/uL Sodium (136-148) mmol/L Potassium (3.5-5.1) mmol/L Chloride (98-107) mmol/L Carbon Dioxide (21.0-32.0) mmol/L BUN (7.0-18.0) mg/dL Creatinine (0.8-1.3) mg/dL Est Cr Clr Drug Dosing mL/min Estimated GFR (MDRD) ml/min Glucose (74-106) mg/dL Calcium (8.5-10.1) mg/dL Total Bilirubin (0.2-1.0) mg/dL AST (15-37) IU/L ALT (14-63) IU/L Alkaline Phosphatase (46-116) U/L Troponin I (0.000-0.056) ng/mL Total Protein (6.4-8.2) g/dL Albumin (3.4-5.0) g/dL Globulin (2.6-4.0) g/dL Albumin/Globulin Ratio (0.9-1.6) Urine Color YELLOW Urine Appearance CLEAR Urine pH 5.0 (5.0-8.0) Ur Specific [place] <= 1.005 (1.001-1.035) Urine Protein NEGATIVE (NEGATIVE) mg/dL Urine Glucose (UA) NEGATIVE (NEGATIVE) mg/dL Urine Ketones NEGATIVE (NEGATIVE) mg/dL Urine Occult Blood TRACE-INTACT H (NEGATIVE) Urine Nitrite NEGATIVE (NEGATIVE) Urine Bilirubin NEGATIVE (NEGATIVE) Urine Urobilinogen 0.2 (<2.0) EU/dL Ur Leukocyte Esterase NEGATIVE (NEGATIVE) Urine RBC 0-2 (0-2/HPF) Urine WBC 0-1 (0-5/HPF) Ur Epithelial Cells RARE (NONE-FEW) Urine Bacteria RARE (NEGATIVE) Result Diagrams: 02/19/19 06:00 02/19/19 06:00 Problem List Initiated/Reviewed/Updated: Yes Orders Last 24hrs: Active Orders 24 hr Category Date Time Status Admission Status [Patient Status] [ADT] Stat ADT 02/18/19 18:29 Active Antiembolic Devices [RC] PER UNIT ROUTINE Care 02/18/19 20:08 Ordered EKG Documentation Completion [RC] STAT Care 02/18/19 16:35 Active Orthostatic Vital Signs [RC] ASDIRECTED Care 02/18/19 16:35 Active Oxygen Therapy [RC] PRN Care 02/18/19 20:07 Ordered Up ad Pam [RC] ASDIRECTED Care 02/18/19 20:07 Ordered VTE/DVT Education [RC] PER UNIT ROUTINE Care 02/18/19 20:07 Ordered Vital Signs [RC] Q4H Care 02/18/19 20:07 Ordered PT Evaluation and Treatment [CONS] Routine Cons 02/18/19 20:07 Ordered Regular Diet [DIET] Diet 02/18/19 Breakfast Ordered BASIC METABOLIC PANEL,BMP [CHEM] AM Lab 02/19/19 05:11 Ordered CBC WITH AUTO DIFF [HEME] AM Lab 02/19/19 05:11 Ordered Sodium Chloride 0.9% [Normal Saline] 1,000 ml Med 02/18/19 20:15 Active IV ASDIRECTED Sequential Compression Device [OM.PC] Per Unit Routine Oth 02/18/19 20:07 Ordered Resuscitation Status Routine Resus Stat 02/18/19 20:07 Ordered Medication Orders Sodium Chloride (Normal Saline) 1,000 mls @ 75 mls/hr IV ASDIRECTED NETO Assessment/Plan Comment:: 89 yo male admitted following a fall for hyponatremia, found to have a cervical neck fracture. I suspect patient may be dehydrated. We will give NS at 75 ml hr and recheck sodium tomorrow. We will hold lasix.
--- NOTE | 2019-02-19 10:25 | PCM.DCSUM1 ---
Discharge Summary - Discharge Data Discharge Date: 02/19/19 Discharge Disposition: Home, Self-Care 01 Condition: Good - Patient Summary/Data Consults: Consultations 02/18/19 20:07 PT Evaluation and Treatment [CONS] Routine Hospital Course: 89 yo male with pmh of DC 11 years ago who was admitted following a fall. Fall occurred four days ago from a step stool He presents to the ED with a complaints of neck pain. He was found to have a sodium of 125 and creatinine of 1.6. CT neck revealed nondisplaced fracture of the left lateral mass of C2. Dr. Giron the neurosurgeon from [place] was called and recommended a soft collar. Patient was hydrated with IV fluids with improvement of his sodium to 130 and creatinine to 1.3. Physical therapy was consulted and felt patient was safe for discharge. Patient was encouraged to use a walker and to take things slow. He has follow up with Dr. Lim next . - Patient Instructions Diet: Usual Diet as Tolerated Activity: As Tolerated Activity, Other: no climbing ladders or step stools - Discharge Plan Home Medications: Home Meds Aspirin 1 tab PO DAILY 01/25/16 [History] Clopidogrel [Plavix] 1 tab PO DAILY 01/25/16 [History] Cod Liver Oil 1 tab PO DAILY 01/25/16 [History] Ergocalciferol (Vitamin D2) [Vitamin D] 2,000 mg PO DAILY 01/25/16 [History] Furosemide 1 tab PO DAILY 01/25/16 [History] Lisinopril 1 tab PO DAILY 01/25/16 [History] Metoprolol Succinate [Toprol XL] 1 tab PO DAILY 01/25/16 [History] Nitroglycerin [Nitrostat] 1 tab PO ASDIRECTED PRN 01/25/16 [History] Ranitidine [Zantac] 1 tab PO DAILY PRN 01/25/16 [History] Simvastatin [Zocor] 1 tab PO DAILY 01/25/16 [History] Sleep Aid 25 mg PO BEDTIME PRN 01/25/16 [History] amLODIPine [Norvasc] 1 tab PO DAILY 01/25/16 [History] Naproxen Sodium [All Day Pain Relief] 1 tab PO DAILY 01/08/19 [History] Ranitidine HCl [Ranitidine] 1 tab PO ASDIRECTED PRN 01/08/19 [History] - Discharge Summary/Plan Comment DC Time >30 min.: No - Patient Data Vitals - Most Recent: Last Vital Signs Temp 36.6 C 02/19/19 08:00 Pulse 86 02/19/19 08:00 Resp 18 02/19/19 08:00 BP 127/67 02/19/19 08:00 Pulse Ox 98 02/19/19 08:00 Weight - Most Recent: 65.907 kg I&O - Last 24 hours: Intake & Output 02/18/19 02/19/19 02/19/19 22:59 06:59 14:59 Intake Total 500 592 Output Total 1550 Balance 500 -958 Lab Results - Last 24 hrs: Laboratory Results - last 24 hr 02/18/19 02/18/19 02/18/19 Range/Units 16:50 16:50 16:50 WBC 10.93 (4.0-11.0) K/uL RBC 4.14 L (4.50-5.90) M/uL Hgb 13.2 (13.0-17.0) g/dL Hct 37.5 L (38.0-50.0) % MCV 90.6 (80.0-98.0) fL MCH 31.9 (27.0-32.0) pg MCHC 35.2 (31.0-37.0) g/dL RDW Std Deviation 42.0 (28.0-62.0) fl RDW Coeff of Dalila 13 (11.0-15.0) % Plt Count 271 (150-400) K/uL MPV 8.90 (7.40-12.00) fL Neut % (Auto) 78.1 (48.0-80.0) % Lymph % (Auto) 12.2 L (16.0-40.0) % [place] % (Auto) 8.9 (0.0-15.0) % Eos % (Auto) 0.5 (0.0-7.0) % Baso % (Auto) 0.3 (0.0-1.5) % Neut # (Auto) 8.5 H (1.4-5.7) K/uL Lymph # (Auto) 1.3 (0.6-2.4) K/uL [place] # (Auto) 1.0 H (0.0-0.8) K/uL Eos # (Auto) 0.1 (0.0-0.7) K/uL Baso # (Auto) 0.0 (0.0-0.1) K/uL Nucleated RBC % 0.0 /100WBC Nucleated RBCs # 0 K/uL Sodium 125 L (136-148) mmol/L Potassium 5.0 (3.5-5.1) mmol/L Chloride 92 L (98-107) mmol/L Carbon Dioxide 23.7 (21.0-32.0) mmol/L BUN 22 H (7.0-18.0) mg/dL Creatinine 1.6 H (0.8-1.3) mg/dL Est Cr Clr Drug Dosing 28.11 mL/min Estimated GFR (MDRD) 40.9 ml/min Glucose 114 H (74-106) mg/dL Calcium 9.5 (8.5-10.1) mg/dL Total Bilirubin 0.6 (0.2-1.0) mg/dL AST 13 L (15-37) IU/L ALT 14 (14-63) IU/L Alkaline Phosphatase 89 (46-116) U/L Troponin I < 0.050 (0.000-0.056) ng/mL Total Protein 8.3 H (6.4-8.2) g/dL Albumin 4.1 (3.4-5.0) g/dL Globulin 4.2 H (2.6-4.0) g/dL Albumin/Globulin Ratio 1.0 (0.9-1.6) Urine Color Urine Appearance Urine pH (5.0-8.0) Ur Specific [place] (1.001-1.035) Urine Protein (NEGATIVE) mg/dL Urine Glucose (UA) (NEGATIVE) mg/dL Urine Ketones (NEGATIVE) mg/dL Urine Occult Blood (NEGATIVE) Urine Nitrite (NEGATIVE) Urine Bilirubin (NEGATIVE) Urine Urobilinogen (<2.0) EU/dL Ur Leukocyte Esterase (NEGATIVE) Urine RBC (0-2/HPF) Urine WBC (0-5/HPF) Ur Epithelial Cells (NONE-FEW) Urine Bacteria (NEGATIVE) 02/18/19 02/19/19 02/19/19 Range/Units 17:28 06:00 06:00 WBC 9.43 (4.0-11.0) K/uL RBC 3.84 L (4.50-5.90) M/uL Hgb 12.0 L (13.0-17.0) g/dL Hct 35.1 L (38.0-50.0) % MCV 91.4 (80.0-98.0) fL MCH 31.3 (27.0-32.0) pg MCHC 34.2 (31.0-37.0) g/dL RDW Std Deviation 42.1 (28.0-62.0) fl RDW Coeff of [place]ila 13 (11.0-15.0) % Plt Count 224 (150-400) K/uL MPV 8.70 (7.40-12.00) fL Neut % (Auto) 71.6 (48.0-80.0) % Lymph % (Auto) 17.0 (16.0-40.0) % [place] % (Auto) 9.9 (0.0-15.0) % Eos % (Auto) 1.2 (0.0-7.0) % Baso % (Auto) 0.3 (0.0-1.5) % Neut # (Auto) 6.8 H (1.4-5.7) K/uL Lymph # (Auto) 1.6 (0.6-2.4) K/uL [place] # (Auto) 0.9 H (0.0-0.8) K/uL Eos # (Auto) 0.1 (0.0-0.7) K/uL Baso # (Auto) 0.0 (0.0-0.1) K/uL Nucleated RBC % 0.0 /100WBC Nucleated RBCs # 0 K/uL Sodium 130 L (136-148) mmol/L Potassium 4.5 (3.5-5.1) mmol/L Chloride 98 (98-107) mmol/L Carbon Dioxide 22.6 (21.0-32.0) mmol/L BUN 19 H (7.0-18.0) mg/dL Creatinine 1.3 (0.8-1.3) mg/dL Est Cr Clr Drug Dosing 35.91 mL/min Estimated GFR (MDRD) 52.0 ml/min Glucose 112 H (74-106) mg/dL Calcium 8.9 (8.5-10.1) mg/dL Total Bilirubin (0.2-1.0) mg/dL AST (15-37) IU/L ALT (14-63) IU/L Alkaline Phosphatase (46-116) U/L Troponin I (0.000-0.056) ng/mL Total Protein (6.4-8.2) g/dL Albumin (3.4-5.0) g/dL Globulin (2.6-4.0) g/dL Albumin/Globulin Ratio (0.9-1.6) Urine Color YELLOW Urine Appearance CLEAR Urine pH 5.0 (5.0-8.0) Ur Specific [place] <= 1.005 (1.001-1.035) Urine Protein NEGATIVE (NEGATIVE) mg/dL Urine Glucose (UA) NEGATIVE (NEGATIVE) mg/dL Urine Ketones NEGATIVE (NEGATIVE) mg/dL Urine Occult Blood TRACE-INTACT H (NEGATIVE) Urine Nitrite NEGATIVE (NEGATIVE) Urine Bilirubin NEGATIVE (NEGATIVE) Urine Urobilinogen 0.2 (<2.0) EU/dL Ur Leukocyte Esterase NEGATIVE (NEGATIVE) Urine RBC 0-2 (0-2/HPF) Urine WBC 0-1 (0-5/HPF) Ur Epithelial Cells RARE (NONE-FEW) Urine Bacteria RARE (NEGATIVE) Med Orders - Current: Current Medications Sodium Chloride (Normal Saline) 1,000 mls @ 75 mls/hr IV ASDIRECTED [facility] Last Admin: 02/18/19 20:30 Dose: 75 mls/hr Discontinued Medications Sodium Chloride (Normal Saline) 1,000 mls @ 500 mls/hr IV STAT ONE Stop: 02/18/19 18:35 Last Admin: 02/18/19 17:25 Dose: 500 mls/hr
[2019-02-19 12:45] VITALS: BP 137/61
== END 2019-02-19 12:50 | disposition home or self-care (01) ==
LOC: MW.ED 15:19 → MW.MS 18:58
PROVIDERS: ADMIT Internal Medicine; ATTEND Internal Medicine
DX: E87.1 Hypo-osmolality and hyponatremia (principal); S12.191A Other nondisplaced fracture of second cervical vertebra, initial encounter for closed fracture; I10 Essential (primary) hypertension; I25.2 Old myocardial infarction; E78.00 Pure hypercholesterolemia, unspecified; F17.200 Nicotine dependence, unspecified, uncomplicated; W08.XXXA Fall from other furniture, initial encounter; Z88.0 Allergy status to penicillin; Z95.5 Presence of coronary angioplasty implant and graft; Z79.82 Long term (current) use of aspirin; Z79.02 Long term (current) use of antithrombotics/antiplatelets; Z79.1 Long term (current) use of non-steroidal anti-inflammatories (NSAID); Z79.899 Other long term (current) drug therapy
CPT/HCPCS: 36415; 70450; 71045; 72125; 73030; 80048; 80053; 81001; 84484; 85025; 93005; 96360; 96361; 97161; 99285; G0378; J7040; 99284

== ENCOUNTER 2019-02-21 20:05 | Observation (INO) | payer MEDICARE, BC ==
[2019-02-21] MEDS ORDERED: Sodium Chloride 0.9% 10 ML Syringe FLUSH PRN (20:18)
[2019-02-21] MEDS ORDERED: Sodium Chloride 0.9% 2.5 ML Syringe FLUSH PRN (20:18)
--- NOTE | 2019-02-21 20:23 | EDM.PDOC ---
ED HPI GENERAL MEDICAL PROBLEM - General Chief Complaint: Syncope Stated Complaint: DIZZY SPELLS, SYNCOPAL EPISODE Time Seen by Provider: 02/21/19 20:09 - History of Present Illness INITIAL COMMENTS - FREE TEXT/NARRATIVE: HISTORY AND PHYSICAL: History of present illness: The patient is an 89-year-old male with a history of hypertension and hypercholesterolemia as well as an TN 11 years ago and was just admitted and discharged from our hospital on February 19 after he sustained a fall with C2 fracture of the lateral mass that was stable and was to be treated with a soft collar as well as hyponatremia to a sodium of 125. I reviewed that admission note and discharge summary and with hydration the sodium corrected to 130. Dr. Hare from [facility] was involved in this case and wanted the patient only to have a soft collar and the patient arrives to the ED tonight after having a brief syncopal event while sitting on the sofa. According to him he has not been eating much food but he has been drinking those shakes and thinks that he has to much sugar and his body. He said that he was sitting on the sofa and had a normal day without fever chest pain cough runny nose abdominal pain vomiting or diarrhea and he says he got very sweaty and the next thing he recalls is his girlfriend shaking him. According to the history from the girlfriend he did not fall off the sofa. He did not lose bowel or bladder and currently he says he just has generalized weakness without focality and has no chest pain palpitations abdominal pain nausea or shortness of breath. He says that he has mostly been consuming the shakes and not eating much food and his hydration has not been that good. The patient arrives to the ED without his soft collar in place and when I questioned him about why he is not wearing it he says that when he was discharged he went home and he tried to sleep with it on and it was uncomfortable so he took it off. He has no new neck or head pain. Review of systems: As per history of present illness and below otherwise all systems reviewed and negative. Past medical history: As per history of present illness and as reviewed below otherwise noncontributory. Surgical history: As per history of present illness and as reviewed below otherwise noncontributory. Social history: No reported history of drug or alcohol abuse. Family history: As per history of present illness and as reviewed below otherwise noncontributory. Physical exam: General: Well-developed frail man who is nontoxic and speaking clearly in the ED. Signs are noted by me HEENT: Atraumatic, normocephalic, pupils reactive, negative for conjunctival pallor or scleral icterus, mucous membranes moist, throat clear, neck supple, nontender, trachea midline. A soft collar was placed after my evaluation in the ED Lungs: Clear to auscultation, breath sounds equal bilaterally, chest nontender. Heart: S1S2, regular, negative for clicks, rubs, or JVD. No overt murmurs Abdomen: Soft, nondistended, nontender. Negative for masses or hepatosplenomegaly. Negative for costovertebral tenderness. Bowel sounds are hypoactive Pelvis: Stable nontender. Genitourinary: Deferred. Rectal: Deferred. Extremities: Atraumatic, negative for cords or calf pain. Neurovascular unremarkable. Full range of motion without defects or deficits Neuro: Awake, alert, oriented. Cranial nerves II through XII unremarkable. Cerebellum unremarkable. Motor and sensory unremarkable throughout. Exam nonfocal. Skin: Turgor seems somewhat diminished and he has an overall pale appearance but no overt rashes or lesions Diagnostics: EKG CBC CMP INR troponin TSH UA with reflex chest x-ray CT scan of the head orthostatic vitals Therapeutics: IV O2 monitor gentle IV fluid bolus soft collar 2053: As we were contacting the hospitalist, Dr. Valadez, for other cases I did discuss this patient with him and he agrees for observation admission due to the syncopal event. We'll place him on telemetry and I will continue to follow his workup. Patient again is noted to be hyponatremic down to 124 so another fluid bolus and maintenance will be given. The patient was not orthostatic on his vitals and I will discuss with him all testing results and care plan for admission. The patient tells the nurse that he is not going to be able to give a urine so we will give that information to the floor so they can collect it when he does produce a specimen. Daughter is now at bedside and I have conveyed all testing results to her and the patient. It appears that the patient is eating some small meals and did have eggs for breakfast and a piece of toast and peaches for lunch but he ate only candy for dinner. He has been drinking a lot of water and vitamin water and this may be a concern for his hyponatremia and needs to be addressed on his admission. They're comfortable with care plan for admission. Impression: Syncopal event, recurrent hyponatremia Definitive disposition and diagnosis as appropriate pending reevaluation and review of above. Treatments [employer]: Reports: EKG, IV/IO - Related Data Allergies Allergy/AdvReac Type Severity Reaction Status Date / Time Penicillins Allergy Syncope Verified 02/21/19 20:17 Home Meds: Home Meds Aspirin 1 tab PO DAILY 01/25/16 [History] Clopidogrel [Plavix] 1 tab PO DAILY 01/25/16 [History] Cod Liver Oil 1 tab PO DAILY 01/25/16 [History] Furosemide 1 tab PO DAILY 01/25/16 [History] Lisinopril 1 tab PO DAILY 01/25/16 [History] Metoprolol Succinate [Toprol XL] 1 tab PO DAILY 01/25/16 [History] Ranitidine [Zantac] 1 tab PO DAILY PRN 01/25/16 [History] Simvastatin [Zocor] 1 tab PO DAILY 01/25/16 [History] amLODIPine [Norvasc] 1 tab PO DAILY 01/25/16 [History] Cholecalciferol (Vitamin D3) [Vitamin D3] 1,000 unit PO DAILY 02/21/19 [History] Nitroglycerin [Nitrostat] 0.4 mg SL ASDIRECTED 02/21/19 [History] Past Medical History HEENT History: Reports: Other (See Below) Other HEENT History: plugged ears about 8 years ago Cardiovascular History: Reports: High Cholesterol, Hypertension, [place] Respiratory History: Reports: None Gastrointestinal History: Reports: None Genitourinary History: Reports: None Musculoskeletal History: Reports: None Neurological History: Reports: Concussion Psychiatric History: Reports: None Endocrine/Metabolic History: Reports: None Hematologic History: Reports: None Immunologic History: Reports: None Oncologic (Cancer) History: Reports: Other (See Below) Other Oncologic History: 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 Dermatologic History: Reports: None - Infectious Disease History Infectious Disease History: Reports: Chicken Pox, Measles, Mumps - Past Surgical History Head Surgeries/Procedures: Reports: None HEENT Surgical History: Reports: None Cardiovascular Surgical History: Reports: Coronary Artery Stent Respiratory Surgical History: Reports: None GI Surgical History: Reports: None Male Surgical History: Reports: None Endocrine Surgical History: Reports: None Neurological Surgical History: Reports: None Musculoskeletal Surgical History: Reports: None Oncologic Surgical History: Reports: None Dermatological Surgical History: Reports: None Social & Family History - Family History Family Medical History: Noncontributory - Caffeine Use Caffeine Use: Reports: None ED ROS GENERAL - Review of Systems Review Of Systems: ROS reveals no pertinent complaints other than HPI. ED EXAM, GENERAL - Physical Exam Exam: See Below (See dictation) Course - Vital Signs Last Recorded V/S: Last Vital Signs Temp 35.8 C 02/21/19 20:10 Pulse 64 02/21/19 20:10 Resp BP 133/60 02/21/19 20:10 Pulse Ox 99 02/21/19 20:10 Orthostatic Blood Pressure [ 147/73 Standing] Orthostatic Blood Pressure [ 151/7 Sitting] Orthostatic Blood Pressure [ 144/63 Supine] - Orders/Labs/Meds Orders: Active Orders 24 hr Category Date Time Status Patient Status [ADT] Stat ADT 02/21/19 21:02 Active Cardiac Monitoring [RC] . DIRECTED Care 02/21/19 20:17 Active Communication Order [RC] STAT Care 02/21/19 20:17 Active EKG Documentation Completion [RC] STAT Care 02/21/19 20:17 Active Orthostatic Vital Signs [RC] ASDIRECTED Care 02/21/19 20:18 Active Oxygen Therapy, ED [RC] ASDIRECTED Care 02/21/19 20:17 Active Pulse Oximetry [RC] ASDIRECTED Care 02/21/19 20:17 Active UA RFX MACR AND CULT IF INDIC [URIN] Stat Lab 02/21/19 20:18 Ordered Sodium Chloride 0.9% [Normal Saline] 1,000 ml Med 02/21/19 21:30 Active IV ASDIRECTED Sodium Chloride 0.9% [Normal Saline] 250 ml Med 02/21/19 20:30 Active IV STAT Sodium Chloride 0.9% [Saline Flush] Med 02/21/19 20:18 Active 10 ml FLUSH ASDIRECTED PRN Sodium Chloride 0.9% [Saline Flush] Med 02/21/19 20:18 Active 2.5 ml FLUSH ASDIRECTED PRN Saline Lock Insert [OM.PC] Stat Oth 02/21/19 20:17 Ordered Medication Orders Sodium Chloride (Normal Saline) 250 mls @ 999 mls/hr IV STAT NETO Last Admin: 02/21/19 21:12 Dose: 999 mls/hr Sodium Chloride (Normal Saline) 1,000 mls @ 75 mls/hr IV ASDIRECTED NETO Sodium Chloride (Saline Flush) 10 ml FLUSH ASDIRECTED PRN PRN Reason: Keep Vein Open Last Admin: 02/21/19 21:12 Dose: 10 ml Sodium Chloride (Saline Flush) 2.5 ml FLUSH ASDIRECTED PRN PRN Reason: Keep Vein Open Last Admin: 02/21/19 21:12 Dose: 2.5 ml Labs: Laboratory Tests 02/21/19 02/21/19 02/21/19 Range/Units 20:34 20:34 20:34 WBC 10.79 (4.0-11.0) K/uL RBC 3.74 L (4.50-5.90) M/uL Hgb 11.8 L (13.0-17.0) g/dL Hct 34.0 L (38.0-50.0) % MCV 90.9 (80.0-98.0) fL MCH 31.6 (27.0-32.0) pg MCHC 34.7 (31.0-37.0) g/dL RDW Std Deviation 42.1 (28.0-62.0) fl RDW Coeff of [place]lila 13 (11.0-15.0) % Plt Count 240 (150-400) K/uL MPV 9.00 (7.40-12.00) fL Neut % (Auto) 80.0 (48.0-80.0) % Lymph % (Auto) 10.8 L (16.0-40.0) % [place] % (Auto) 8.4 (0.0-15.0) % Eos % (Auto) 0.6 (0.0-7.0) % Baso % (Auto) 0.2 (0.0-1.5) % Neut # (Auto) 8.6 H (1.4-5.7) K/uL Lymph # (Auto) 1.2 (0.6-2.4) K/uL [place] # (Auto) 0.9 H (0.0-0.8) K/uL Eos # (Auto) 0.1 (0.0-0.7) K/uL Baso # (Auto) 0.0 (0.0-0.1) K/uL Nucleated RBC % 0.0 /100WBC Nucleated RBCs # 0 K/uL INR 1.16 Sodium 124 L (136-148) mmol/L Potassium 4.3 (3.5-5.1) mmol/L Chloride 91 L (98-107) mmol/L Carbon Dioxide 21.5 (21.0-32.0) mmol/L BUN 25 H (7.0-18.0) mg/dL Creatinine 1.8 H (0.8-1.3) mg/dL Est Cr Clr Drug Dosing TNP Estimated GFR (MDRD) 35.7 ml/min Glucose 136 H (74-106) mg/dL Calcium 9.1 (8.5-10.1) mg/dL Total Bilirubin 0.5 (0.2-1.0) mg/dL AST 15 (15-37) IU/L ALT 14 (14-63) IU/L Alkaline Phosphatase 84 (46-116) U/L Troponin I < 0.050 (0.000-0.056) ng/mL Total Protein 7.5 (6.4-8.2) g/dL Albumin 3.8 (3.4-5.0) g/dL Globulin 3.7 (2.6-4.0) g/dL Albumin/Globulin Ratio 1.0 (0.9-1.6) TSH 3rd Generation 2.06 (0.36-3.74) uIU/mL Meds: Medications Generic Name Dose Route Start Last Admin Trade Name Freq PRN Reason Stop Dose Admin Sodium Chloride 250 mls @ 999 mls/hr 02/21/19 20:30 02/21/19 21:12 Normal Saline IV 999 mls/hr STAT NETO Administration Sodium Chloride 1,000 mls @ 75 mls/hr 02/21/19 21:30 Normal Saline IV ASDIRECTED NETO Sodium Chloride 10 ml 02/21/19 20:18 02/21/19 21:12 Saline Flush FLUSH 10 ml ASDIRECTED PRN Administration Keep Vein Open Sodium Chloride 2.5 ml 02/21/19 20:18 02/21/19 21:12 Saline Flush FLUSH 2.5 ml ASDIRECTED PRN Administration Keep Vein Open Departure - Departure Time of Disposition: 21:30 Disposition: Refer to Observation Condition: Good Clinical Impression: Hyponatremia Syncope Qualifiers: Syncope type: unspecified Qualified Code(s): R55 - Syncope and collapse - Discharge Information Referrals: PCP,Unknown [Primary Care Provider] - Forms: ED Department Discharge - My Orders Last 24 Hours: My Active Orders 02/21/19 20:17 Cardiac Monitoring [RC] . DIRECTED Communication Order [RC] STAT EKG Documentation Completion [RC] STAT Oxygen Therapy, ED [RC] ASDIRECTED Pulse Oximetry [RC] ASDIRECTED Saline Lock Insert [OM.PC] Stat 02/21/19 20:18 Orthostatic Vital Signs [RC] ASDIRECTED UA RFX MARC AND CULT IF INDIC [URIN] Stat Sodium Chloride 0.9% [Saline Flush] 10 ml FLUSH ASDIRECTED PRN Sodium Chloride 0.9% [Saline Flush] 2.5 ml FLUSH ASDIRECTED PRN 02/21/19 20:30 Sodium Chloride 0.9% [Normal Saline] 250 ml IV STAT 02/21/19 21:02 Patient Status [ADT] Stat 02/21/19 21:30 Sodium Chloride 0.9% [Normal Saline] 1,000 ml IV ASDIRECTED - Assessment/Plan Last 24 Hours: My Active Orders 02/21/19 20:17 Cardiac Monitoring [RC] . DIRECTED Communication Order [RC] STAT EKG Documentation Completion [RC] STAT Oxygen Therapy, ED [RC] ASDIRECTED Pulse Oximetry [RC] ASDIRECTED Saline Lock Insert [OM.PC] Stat 02/21/19 20:18 Orthostatic Vital Signs [RC] ASDIRECTED UA RFX MARC AND CULT IF INDIC [URIN] Stat Sodium Chloride 0.9% [Saline Flush] 10 ml FLUSH ASDIRECTED PRN Sodium Chloride 0.9% [Saline Flush] 2.5 ml FLUSH ASDIRECTED PRN 02/21/19 20:30 Sodium Chloride 0.9% [Normal Saline] 250 ml IV STAT 02/21/19 21:02 Patient Status [ADT] Stat 02/21/19 21:30 Sodium Chloride 0.9% [Normal Saline] 1,000 ml IV ASDIRECTED
[2019-02-21] MEDS ORDERED: Sodium Chloride 0.9% 250 ML IV SCH (20:30)
[2019-02-21 21:08] LABS: CHLORIDE,CL 91 mmol/L (98-107); SODIUM,NA 124 mmol/L (136-148)
--- NOTE | 2019-02-21 21:13 | CT ---
INDICATION: Headache following fall. TECHNIQUE: CT Head without i.v. contrast. COMPARISON: 02/18/2019 FINDINGS: CSF space: Unremarkable for age. Brain: No evidence of mass, acute infarction or hemorrhage is seen. No mass-effect or midline shift is seen. Moderate diffuse cortical atrophy is noted. Calvarium: Opacification of the right sphenoid sinus is noted without interval change. The mastoid air cells are clear. The visualized orbits are grossly unremarkable. The calvarium is unremarkable in appearance with no fractures identified. IMPRESSION: 1. No evidence of acute infarction, intracranial hemorrhage, or mass-effect seen. Dictated by Sergio Peters MD @ 02/21/2019 9:12:26 PM Please note that all CT scans at this facility use dose modulation, iterative reconstruction, and/or weight-based dosing when appropriate to reduce radiation dose to as low as reasonably achievable. Dictated by: Sergio Peters MD @ 02/21/2019 21:12:34 (Electronically Signed)
--- NOTE | 2019-02-21 21:20 | CR ---
INDICATION: Chest pain, shortness of breath TECHNIQUE: Chest radiograph 1 view COMPARISON: 02/18/19 FINDINGS: Mediastinum: The mediastinum is normal in appearance. The heart silhouette is normal in size and morphology. Lung: Both lungs are unremarkable in appearance. No sign of pleural effusion seen. No pneumothorax is identified. Musculoskeletal: Unremarkable for age. IMPRESSION: 1. No acute cardiopulmonary disease is seen. Dictated by: Sergio Peters MD @ 02/21/2019 21:19:42 (Electronically Signed)
[2019-02-21] MEDS: Sodium Chloride 0.9% 1,000 ML IV SCH (21:38)
[2019-02-21] MEDS ORDERED: Acetaminophen 325 MG Tab PO PRN (23:15)
[2019-02-21] MEDS ORDERED: oxyCODONE 5 MG Tab PO PRN (23:15)
[2019-02-21] MEDS ORDERED: Docusate Sodium 100 MG Cap PO PRN (23:15)
[2019-02-21] MEDS ORDERED: Temazepam 15 MG Cap PO PRN (23:15)
--- NOTE | 2019-02-22 08:59 | PCM.HP ---
H&P History of Present Illness - General Date of Service: 02/22/19 Admit Problem/Dx: Admission Diagnosis/Problem Admission Diagnosis/Problem Syncope Source of Information: Patient, Family History Limitations: Reports: No Limitations - History of Present Illness Initial Comments - Free Text/Narative: The patient is an 89-year-old gentleman who had presented to the emergency department after he was discharged on February 19 secondary to a fall in which he had sustained a C2 fracture. The patient was admitted primarily out of concern for hyponatremia. Patient had a sodium of 125 mmol per liter. This was also a problem during the patient's previous hospitalization. The patient had been given a soft collar for his cervical fracture but on presentation to the ER he was not wearing this. The patient was somewhat unresponsive as noted by his girlfriend and that she had noted him just "sitting there" and not responsive. The patient says that he has been not eating as much as he should and has been consuming electrolyte water. Onset of Symptoms: Reports: Gradual Duration of Symptoms: Reports: Day(s): Location: Reports: Neck Quality: Reports: Ache Severity: Mild Improves with: Reports: None Worsens with: Reports: None Context: Reports: Trauma Associated Symptoms: Reports: No Other Symptoms - Related Data Allergies/Adverse Reactions: Allergies Allergy/AdvReac Type Severity Reaction Status Date / Time Penicillins Allergy Syncope Verified 02/21/19 20:17 Home Medications: Home Meds Aspirin 81 mg PO DAILY 01/25/16 [History] Clopidogrel [Plavix] 75 mg PO DAILY 01/25/16 [History] Cod Liver Oil 1 tab PO DAILY 01/25/16 [History] Furosemide 20 mg PO DAILY 01/25/16 [History] Lisinopril 10 mg PO DAILY 01/25/16 [History] Metoprolol Succinate [Toprol XL] 25 mg PO DAILY 01/25/16 [History] Ranitidine [Zantac] 150 mg PO DAILY PRN 01/25/16 [History] Simvastatin [Zocor] 20 mg PO BEDTIME 01/25/16 [History] amLODIPine [Norvasc] 5 mg PO DAILY 01/25/16 [History] Cholecalciferol (Vitamin D3) [Vitamin D3] 1,000 unit PO DAILY 02/21/19 [History] Nitroglycerin [Nitrostat] 0.4 mg SL .EVERY 5 MINUTES PRN MDD 3 TABS, THEN GO TO ER 02/21/19 [History] Past Medical History HEENT History: Reports: Other (See Below) Other HEENT History: plugged ears about 8 years ago Cardiovascular History: Reports: High Cholesterol, Hypertension, [place] Respiratory History: Reports: None Gastrointestinal History: Reports: None Genitourinary History: Reports: None Musculoskeletal History: Reports: None Neurological History: Reports: Concussion Psychiatric History: Reports: None Endocrine/Metabolic History: Reports: None Hematologic History: Reports: None Immunologic History: Reports: None Oncologic (Cancer) History: Reports: Other (See Below) Other Oncologic History: 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 Dermatologic History: Reports: None - Infectious Disease History Infectious Disease History: Reports: Chicken Pox, Measles, Mumps - Past Surgical History Head Surgeries/Procedures: Reports: None HEENT Surgical History: Reports: None Cardiovascular Surgical History: Reports: Coronary Artery Stent Respiratory Surgical History: Reports: None GI Surgical History: Reports: None Male Surgical History: Reports: None Endocrine Surgical History: Reports: None Neurological Surgical History: Reports: None Musculoskeletal Surgical History: Reports: None Oncologic Surgical History: Reports: None Dermatological Surgical History: Reports: None Social & Family History - Family History Family Medical History: Noncontributory - Tobacco Use Smoking Status *Q: Current Every Day Smoker Years of Tobacco use: 65 Packs/Tins Daily: 0.5 - Caffeine Use Caffeine Use: Reports: Soda - Recreational Drug Use Recreational Drug Use: No - Living Situation & Occupation Living situation: Reports: Single, with Significant Other Occupation: Retired H&P Review of Systems - Review of Systems: Review Of Systems: See Below General: Reports: Weakness HEENT: Reports: No Symptoms Pulmonary: Reports: No Symptoms Cardiovascular: Reports: No Symptoms Gastrointestinal: Reports: No Symptoms Genitourinary: Reports: No Symptoms Musculoskeletal: Reports: No Symptoms Skin: Reports: No Symptoms Psychiatric: Reports: No Symptoms Neurological: Reports: Confusion Hematologic/Lymphatic: Reports: No Symptoms Immunologic: Reports: No Symptoms Exam - Exam Exam: See Below - Vital Signs Vital Signs: Last Vital Signs Temp 36.3 C 02/22/19 08:00 Pulse 69 02/22/19 08:00 Resp 16 02/22/19 08:00 BP 136/60 02/22/19 08:00 Pulse Ox 98 02/22/19 08:00 Orthostatic Blood Pressure [ 147/73 Standing] Orthostatic Blood Pressure [ 151/7 Sitting] Orthostatic Blood Pressure [ 144/63 Supine] Weight: 65.771 kg - Exam Quality Assessment: No: Supplemental Oxygen General: Alert, Oriented, Cooperative HEENT: Conjunctiva Clear, EACs Clear, EOMI, Nares Patent, PERRLA. No: Mucosa Moist & Horine (Dry) Neck: Supple, Trachea Midline, Other (Soft c-collar). No: Full Range of Motion Lungs: Clear to Auscultation, Normal Respiratory Effort Cardiovascular: Regular Rate, Regular Rhythm GI/Abdominal Exam: Normal Bowel Sounds, Soft, Non-Tender, No Distention Back Exam: No: Normal Inspection Extremities: Normal Inspection, No Pedal Edema Skin: Warm, Dry, Intact Neurological: Cranial Nerves Intact Psychiatric: Alert, Normal Affect - Patient Data Lab Results Last 24 hrs: Laboratory Results - last 24 hr 02/21/19 02/21/19 02/21/19 Range/Units 20:34 20:34 20:34 WBC 10.79 (4.0-11.0) K/uL RBC 3.74 L (4.50-5.90) M/uL Hgb 11.8 L (13.0-17.0) g/dL Hct 34.0 L (38.0-50.0) % MCV 90.9 (80.0-98.0) fL MCH 31.6 (27.0-32.0) pg MCHC 34.7 (31.0-37.0) g/dL RDW Std Deviation 42.1 (28.0-62.0) fl RDW Coeff of Dalila 13 (11.0-15.0) % Plt Count 240 (150-400) K/uL MPV 9.00 (7.40-12.00) fL Neut % (Auto) 80.0 (48.0-80.0) % Lymph % (Auto) 10.8 L (16.0-40.0) % [place] % (Auto) 8.4 (0.0-15.0) % Eos % (Auto) 0.6 (0.0-7.0) % Baso % (Auto) 0.2 (0.0-1.5) % Neut # (Auto) 8.6 H (1.4-5.7) K/uL Lymph # (Auto) 1.2 (0.6-2.4) K/uL [place] # (Auto) 0.9 H (0.0-0.8) K/uL Eos # (Auto) 0.1 (0.0-0.7) K/uL Baso # (Auto) 0.0 (0.0-0.1) K/uL Nucleated RBC % 0.0 /100WBC Nucleated RBCs # 0 K/uL INR 1.16 Sodium 124 L (136-148) mmol/L Potassium 4.3 (3.5-5.1) mmol/L Chloride 91 L (98-107) mmol/L Carbon Dioxide 21.5 (21.0-32.0) mmol/L BUN 25 H (7.0-18.0) mg/dL Creatinine 1.8 H (0.8-1.3) mg/dL Est Cr Clr Drug Dosing TNP Estimated GFR (MDRD) 35.7 ml/min Glucose 136 H (74-106) mg/dL Calcium 9.1 (8.5-10.1) mg/dL Total Bilirubin 0.5 (0.2-1.0) mg/dL AST 15 (15-37) IU/L ALT 14 (14-63) IU/L Alkaline Phosphatase 84 (46-116) U/L Troponin I < 0.050 (0.000-0.056) ng/mL Total Protein 7.5 (6.4-8.2) g/dL Albumin 3.8 (3.4-5.0) g/dL Globulin 3.7 (2.6-4.0) g/dL Albumin/Globulin Ratio 1.0 (0.9-1.6) TSH 3rd Generation 2.06 (0.36-3.74) uIU/mL Urine Color Urine Appearance Urine pH (5.0-8.0) Ur Specific [place] (1.001-1.035) Urine Protein (NEGATIVE) mg/dL Urine Glucose (UA) (NEGATIVE) mg/dL Urine Ketones (NEGATIVE) mg/dL Urine Occult Blood (NEGATIVE) Urine Nitrite (NEGATIVE) Urine Bilirubin (NEGATIVE) Urine Urobilinogen (<2.0) EU/dL Ur Leukocyte Esterase (NEGATIVE) Urine RBC (0-2/HPF) Urine WBC (0-5/HPF) Ur Epithelial Cells (NONE-FEW) Urine Bacteria (NEGATIVE) 02/22/19 02/22/19 02/22/19 Range/Units 03:35 05:55 05:55 WBC 8.47 (4.0-11.0) K/uL RBC 3.61 L (4.50-5.90) M/uL Hgb 11.1 L (13.0-17.0) g/dL Hct 32.6 L (38.0-50.0) % MCV 90.3 (80.0-98.0) fL MCH 30.7 (27.0-32.0) pg MCHC 34.0 (31.0-37.0) g/dL RDW Std Deviation 41.2 (28.0-62.0) fl RDW Coeff of Dalila 12 (11.0-15.0) % Plt Count 219 (150-400) K/uL MPV 9.00 (7.40-12.00) fL Neut % (Auto) 70.3 (48.0-80.0) % Lymph % (Auto) 19.4 (16.0-40.0) % [place] % (Auto) 9.3 (0.0-15.0) % Eos % (Auto) 0.8 (0.0-7.0) % Baso % (Auto) 0.2 (0.0-1.5) % Neut # (Auto) 6.0 H (1.4-5.7) K/uL Lymph # (Auto) 1.6 (0.6-2.4) K/uL [place] # (Auto) 0.8 (0.0-0.8) K/uL Eos # (Auto) 0.1 (0.0-0.7) K/uL Baso # (Auto) 0.0 (0.0-0.1) K/uL Nucleated RBC % 0.0 /100WBC Nucleated RBCs # 0 K/uL INR Sodium 128 L (136-148) mmol/L Potassium 4.1 (3.5-5.1) mmol/L Chloride 95 L (98-107) mmol/L Carbon Dioxide 22.0 (21.0-32.0) mmol/L BUN 20 H (7.0-18.0) mg/dL Creatinine 1.4 H (0.8-1.3) mg/dL Est Cr Clr Drug Dosing 32.28 Estimated GFR (MDRD) 47.7 ml/min Glucose 107 H (74-106) mg/dL Calcium 8.7 (8.5-10.1) mg/dL Total Bilirubin 0.5 (0.2-1.0) mg/dL AST 11 L (15-37) IU/L ALT 11 L (14-63) IU/L Alkaline Phosphatase 78 (46-116) U/L Troponin I (0.000-0.056) ng/mL Total Protein 6.6 (6.4-8.2) g/dL Albumin 3.3 L (3.4-5.0) g/dL Globulin 3.3 (2.6-4.0) g/dL Albumin/Globulin Ratio 1.0 (0.9-1.6) TSH 3rd Generation (0.36-3.74) uIU/mL Urine Color YELLOW Urine Appearance CLEAR Urine pH 5.5 (5.0-8.0) Ur Specific [place] <= 1.005 (1.001-1.035) Urine Protein NEGATIVE (NEGATIVE) mg/dL Urine Glucose (UA) NEGATIVE (NEGATIVE) mg/dL Urine Ketones NEGATIVE (NEGATIVE) mg/dL Urine Occult Blood TRACE-INTACT H (NEGATIVE) Urine Nitrite NEGATIVE (NEGATIVE) Urine Bilirubin NEGATIVE (NEGATIVE) Urine Urobilinogen 0.2 (<2.0) EU/dL Ur Leukocyte Esterase NEGATIVE (NEGATIVE) Urine RBC 3-6 (0-2/HPF) Urine WBC 0-1 (0-5/HPF) Ur Epithelial Cells RARE (NONE-FEW) Urine Bacteria RARE (NEGATIVE) Result Diagrams: 02/22/19 05:55 02/22/19 05:55 *Q Meaningful Use (ADM) - VTE *Q VTE Mechanical Contraindications *Q: At Risk for Falls VTE Pharmacological Contraindications *Q: Risk of Bleeding - Problem List (1) Hyponatremia SNOMED Code(s): 67117410 ICD Code: E87.1 - HYPO-OSMOLALITY AND HYPONATREMIA Status: Acute Priority : High Current Visit: Yes (2) Syncope SNOMED Code(s): 472717423 ICD Code: R55 - SYNCOPE AND COLLAPSE Status: Acute Priority: High Current Visit: Yes Qualifiers: Syncope type: unspecified Qualified Code(s): R55 - Syncope and collapse (3) C2 cervical fracture SNOMED Code(s): 096620101 ICD Code: S12.100A - UNSP DISP FX OF SECOND CERVICAL VERTEBRA, INIT FOR CLOS FX Status: Acute Priority: High Current Visit: Yes Qualifiers: Encounter type: subsequent encounter Fracture type: closed Fracture morphology: unspecified fracture morphology Fracture alignment: nondisplaced Fracture healing: with routine healing Qualified Code(s): S12.101D - Unspecified nondisplaced fracture of second cervical vertebra, subsequent encounter for fracture with routine healing (4) Risk for falls SNOMED Code(s): 273948422 ICD Code: Z91.81 - HISTORY OF FALLING Status: Acute Priority: High Current Visit: Yes Problem List Initiated/Reviewed/Updated: Yes Orders Last 24hrs: Active Orders 24 hr Category Date Time Status Patient Status [ADT] Stat ADT 02/21/19 21:02 Active Antiembolic Devices [RC] PER UNIT ROUTINE Care 02/21/19 23:16 Active Cardiac Monitoring [RC] . DIRECTED Care 02/21/19 20:17 Active Communication Order [RC] STAT Care 02/21/19 20:17 Active Orthostatic Vital Signs [RC] ASDIRECTED Care 02/21/19 20:18 Active Oxygen Therapy [RC] PRN Care 02/21/19 23:15 Active Telemetry Monitoring [Cardiac Monitoring] [RC] . Care 02/21/19 21:27 Active DIRECTED Up With Assistance [RC] ASDIRECTED Care 02/21/19 23:15 Active VTE/DVT Education [RC] PER UNIT ROUTINE Care 02/21/19 23:15 Active Vital Signs [RC] Q4H Care 02/21/19 23:15 Active Heart Healthy Diet [DIET] Diet 02/22/19 Breakfast Active Acetaminophen [Tylenol] Med 02/21/19 23:15 Active 650 mg PO Q4H PRN Clopidogrel [Plavix] Med 02/22/19 09:00 Active 75 mg PO DAILY Docusate Sodium [Colace] Med 02/21/19 23:15 Active 100 mg PO BID PRN Famotidine [Pepcid] Med 02/22/19 09:00 Active 20 mg PO DAILY PRN Furosemide [Lasix] Med 02/22/19 09:00 Active 20 mg PO DAILY Lisinopril [Prinivil] Med 02/22/19 09:00 Active 10 mg PO DAILY Metoprolol Succinate [Toprol XL] Med 02/22/19 09:00 Active 25 mg PO DAILY Simvastatin [Zocor] Med 02/22/19 09:00 Active 20 mg PO DAILY Sodium Chloride 0.9% [Normal Saline] 1,000 ml Med 02/21/19 21:30 Active IV ASDIRECTED Sodium Chloride 0.9% [Normal Saline] 250 ml Med 02/21/19 20:30 Active IV STAT Sodium Chloride 0.9% [Saline Flush] Med 02/21/19 20:18 Active 10 ml FLUSH ASDIRECTED PRN Sodium Chloride 0.9% [Saline Flush] Med 02/21/19 20:18 Active 2.5 ml FLUSH ASDIRECTED PRN Temazepam [Restoril] Med 02/21/19 23:15 Active 15 mg PO BEDTIME PRN amLODIPine [Norvasc] Med 02/22/19 09:00 Active 5 mg PO DAILY oxyCODONE Med 02/21/19 23:15 Active 5 mg PO Q4H PRN Antiembolic Hose [OM.PC] Per Unit Routine Oth 02/21/19 23:16 Ordered Saline Lock Insert [OM.PC] Stat Oth 02/21/19 20:17 Ordered VTE Mechanical Contraindications [AST] Per Unit Routine Oth 02/21/19 23:15 Ordered VTE Pharmacological Contraindications [AST] Per Unit Oth 02/21/19 23:15 Ordered Routine Resuscitation Status Routine Resus Stat 02/21/19 23:15 Ordered Medication Orders Acetaminophen (Tylenol) 650 mg PO Q4H PRN PRN Reason: Pain (Mild 1-3)/fever Amlodipine Besylate (Norvasc) 5 mg PO DAILY [facility] Clopidogrel Bisulfate (Plavix) 75 mg PO DAILY [facility] Docusate Sodium (Colace) 100 mg PO BID PRN PRN Reason: Constipation Famotidine (Pepcid) 20 mg PO DAILY PRN PRN Reason: HEARTBURN Furosemide (Lasix) 20 mg PO DAILY [facility] Sodium Chloride (Normal Saline) 250 mls @ 999 mls/hr IV STAT NETO Last Admin: 02/21/19 21:12 Dose: 999 mls/hr Sodium Chloride (Normal Saline) 1,000 mls @ 75 mls/hr IV ASDIRECTED NETO Last Admin: 02/21/19 21:38 Dose: 75 mls/hr Lisinopril (Prinivil) 10 mg PO DAILY [facility] Metoprolol Succinate (Toprol Xl) 25 mg PO DAILY [facility] Oxycodone HCl (Oxycodone) 5 mg PO Q4H PRN PRN Reason: Pain (moderate 4-6) Simvastatin (Zocor) 20 mg PO DAILY [facility] Sodium Chloride (Saline Flush) 10 ml FLUSH ASDIRECTED PRN PRN Reason: Keep Vein Open Last Admin: 02/21/19 21:12 Dose: 10 ml Sodium Chloride (Saline Flush) 2.5 ml FLUSH ASDIRECTED PRN PRN Reason: Keep Vein Open Last Admin: 02/21/19 21:12 Dose: 2.5 ml Temazepam (Restoril) 15 mg PO BEDTIME PRN PRN Reason: Sleep Assessment/Plan Comment:: The patient is an 89-year-old gentleman who had been admitted to hospitalization secondary to weakness and fatigue as well as an unresponsive episode. The patient previously had been admitted with a lateral C2 vertebral body fracture and had been discharged from acute hospitalization proximal with 4 days ago. Physical therapy has been ordered for the patient. We'll continue to monitor the patient's sodium and his sodium will be corrected slowly with the use of normal saline. The patient will also be kept on his antihypertensive medications and his vital signs be monitored each shift. The patient has been taking Plavix and this will be continued. The patient will be encouraged to ambulate. Patient also has been provided DVT prophylaxis with antiembolic stockings as the patient has been on Plavix and has a spinal fracture. The patient should be appropriate for discharge in 1-2 days.
[2019-02-22] MEDS ORDERED: Furosemide 20 MG Tab PO SCH (09:00)
[2019-02-22] MEDS ORDERED: Lisinopril 10 MG Tab PO SCH (09:00)
[2019-02-22] MEDS ORDERED: Famotidine 20 MG Tab PO PRN (09:00)
[2019-02-22] MEDS: Sodium Chloride 0.9% 1,000 ML IV SCH ×2 (09:01→21:42)
[2019-02-22] MEDS: Metoprolol Succinate 25 MG Tab.ER PO SCH (09:03)
[2019-02-22] MEDS: Simvastatin 20 MG Tab PO SCH (09:04)
[2019-02-22] MEDS: Clopidogrel 75 MG Tab PO SCH (09:04)
[2019-02-22] MEDS: amLODIPine 5 MG Tab PO SCH (09:06)
[2019-02-23 07:21] VITALS: BP 141/66
[2019-02-23] MEDS: amLODIPine 5 MG Tab PO SCH (08:34)
[2019-02-23] MEDS: Simvastatin 20 MG Tab PO SCH (08:35)
[2019-02-23] MEDS: Clopidogrel 75 MG Tab PO SCH (08:35)
[2019-02-23] MEDS: Metoprolol Succinate 25 MG Tab.ER PO SCH (08:35)
--- NOTE | 2019-02-23 08:43 | PCM.DCSUM1 ---
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 The patient was admitted primarily out of concern for hyponatremia. Patient had a sodium of 125 mmol per liter. This was also a problem during the patient's previous hospitalization. The patient had been given a soft collar for his cervical fracture but on presentation to the ER he was not wearing this. The patient was somewhat unresponsive as noted by his girlfriend and that she had noted him just "sitting there" and not responsive. The patient says that he has been not eating as much as he should and has been consuming electrolyte water. In the ED Na 124, Cl 91, BUN 25 and Cr 1.8 Diagnosis: Stroke: No - Discharge Data Discharge Date: 02/23/19 Discharge Disposition: Home, Home Health Agency Condition: Stable - Patient Summary/Data Consults: Consultations 02/22/19 13:44 Consult to Wound Care Services [CONS] Routine - Patient Instructions Diet: Heart Healthy Diet Activity: As Tolerated Driving: Do Not Drive Showering/Bathing: May Shower Notify Provider of: Fever, Increased Pain, Swelling and Redness, Drainage, Nausea and/or Vomiting Other/Special Instructions: Keep soft c collar in place until follow up with Dr Giron. HOLD Lasix until further instruction from Dr Lim. No climbing ladders or step stools - Discharge Plan *PRESCRIPTION DRUG MONITORING PROGRAM REVIEWED*: Not Applicable *COPY OF PRESCRIPTION DRUG MONITORING REPORT IN PATIENT LARISSA: Not Applicable Home Medications: Home Meds Aspirin 81 mg PO DAILY 01/25/16 [History] Clopidogrel [Plavix] 75 mg PO DAILY 01/25/16 [History] Cod Liver Oil 1 tab PO DAILY 01/25/16 [History] Lisinopril 10 mg PO DAILY 01/25/16 [History] Metoprolol Succinate [Toprol XL] 25 mg PO DAILY 01/25/16 [History] Ranitidine [Zantac] 150 mg PO DAILY PRN 01/25/16 [History] Simvastatin [Zocor] 20 mg PO BEDTIME 01/25/16 [History] amLODIPine [Norvasc] 5 mg PO DAILY 01/25/16 [History] Cholecalciferol (Vitamin D3) [Vitamin D3] 1,000 unit PO DAILY 02/21/19 [History] Nitroglycerin [Nitrostat] 0.4 mg SL .EVERY 5 MINUTES PRN MDD 3 TABS, THEN GO TO ER 02/21/19 [History] Patient Handouts: Cervical Collar, Syncope, [id number] Referrals: Kranthi Lim MD [Physician] - 02/24/19 9:00 am (Arrive 30 minutes early to get your labs drawn. ) Zohaib Laureano [Anchor Operator] - (They will be contacting you for an appointment. This was made to check on your cervical fracture. Dr. Giron is a neurosurgeon. ) - Discharge Summary/Plan Comment DC Time >30 min.: No Discharge Summary/Plan Comment: Admitting Diagnoses: Hyponatremia AMS Discharge Diagnses: Hyponatremia Other PMH Recent C2 fracture, soft collar in place CAD NE 11 years ago HTN Nakul was admitted secondary to hyonatremia. He was treated with IVFs and Na corrected along with BUN/Cr improvement. Na today 131, BUN 24, and Cr 1.5. His significant other is in room with him this morning, he is alert and oriented. SOme noted memory loss but she reports this is his baseline. They feel comfortable going home. Hyponatremia may be due to some overdiuresis with Lasix. They were instructed to HOLD the Lasix until he sees PCP. BP have been stable 140-160s/60-70s. HR 60s. He is to limit climbing ladders or step stools. No Driving. and to keep soft collar in place. I will arrange follow up with neurosurgery in [place], Dr Giron. He was contacted on previous admission and recommended soft c collar placement. He will see Dr Lim, PCP tomorrow with BMP prior to appointment to check labwork. He will go home today with Home health. He is in need of penitentiary care to monitor medications with recent changes, monitor VS due to medication changes. He would also benefit from PT and OT to evaluate ambulation and strength at home. OT would be beneficial to evaluate for home safety and ADLs. He is homebound due to the inability to drive currently with c collar in place and the need for caregiver, significant other, to bring him to appointments. Home Health plan of care to be followed by PCP, Dr Lim. - General Info Date of Service: 02/23/19 Admission Dx/Problem (Free Text: Admission Diagnosis/Problem Admission Diagnosis/Problem Hyponatremia Subjective Update: Alert and oriented today. Girlfriend at bedside. No complaints. They feel comfortable going home. No concerns. They have appointment with Dr Lim tomorrow. Functional Status: Reports: Pain Controlled, Tolerating Diet, Ambulating, Urinating - Review of Systems General: Reports: No Symptoms. Denies: Weakness, Malaise HEENT: Reports: No Symptoms. Denies: Headaches, Visual Changes Pulmonary: Reports: No Symptoms. Denies: Shortness of Breath Cardiovascular: Reports: No Symptoms. Denies: Chest Pain, Edema Gastrointestinal: Reports: No Symptoms. Denies: Abdominal Pain, Nausea, Vomiting Genitourinary: Reports: No Symptoms. Denies: Dysuria, Frequency Musculoskeletal: Reports: No Symptoms. Denies: Neck Pain (soft c collar in place) Skin: Reports: No Symptoms Neurological: Reports: No Symptoms Psychiatric: Reports: No Symptoms - Patient Data Vitals - Most Recent: Last Vital Signs Temp 98.2 F 02/23/19 07:20 Pulse 68 02/23/19 08:35 Resp 16 02/23/19 07:20 BP 141/66 H 02/23/19 08:35 Pulse Ox 97 02/23/19 07:20 Orthostatic Blood Pressure [ 147/73 Standing] Orthostatic Blood Pressure [ 151/7 Sitting] Orthostatic Blood Pressure [ 144/63 Supine] Weight - Most Recent: 65.771 kg I&O - Last 24 hours: Intake & Output 02/22/19 02/23/19 02/23/19 22:59 06:59 14:59 Intake Total 616 1233 Output Total 900 1200 Balance -284 33 Lab Results - Last 24 hrs: Laboratory Results - last 24 hr 02/23/19 Range/Units 05:20 Sodium 131 L (136-148) mmol/L Potassium 4.4 (3.5-5.1) mmol/L Chloride 99 (98-107) mmol/L Carbon Dioxide 24.7 (21.0-32.0) mmol/L BUN 24 H (7.0-18.0) mg/dL Creatinine 1.5 H (0.8-1.3) mg/dL Est Cr Clr Drug Dosing 30.13 mL/min Estimated GFR (MDRD) 44.1 ml/min Glucose 107 H (74-106) mg/dL Calcium 8.7 (8.5-10.1) mg/dL Med Orders - Current: Current Medications Acetaminophen (Tylenol) 650 mg PO Q4H PRN PRN Reason: Pain (Mild 1-3)/fever Last Admin: 02/22/19 20:46 Dose: 650 mg Amlodipine Besylate (Norvasc) 5 mg PO DAILY [facility] Last Admin: 02/23/19 08:34 Dose: 5 mg Clopidogrel Bisulfate (Plavix) 75 mg PO DAILY [facility] Last Admin: 02/23/19 08:35 Dose: 75 mg Docusate Sodium (Colace) 100 mg PO BID PRN PRN Reason: Constipation Famotidine (Pepcid) 20 mg PO DAILY PRN PRN Reason: HEARTBURN Sodium Chloride (Normal Saline) 250 mls @ 999 mls/hr IV STAT [facility] Last Admin: 02/21/19 21:12 Dose: 999 mls/hr Sodium Chloride (Normal Saline) 1,000 mls @ 75 mls/hr IV ASDIRECTED [facility] Last Admin: 02/22/19 21:42 Dose: 75 mls/hr Metoprolol Succinate (Toprol Xl) 25 mg PO DAILY [facility] Last Admin: 02/23/19 08:35 Dose: 25 mg Oxycodone HCl (Oxycodone) 5 mg PO Q4H PRN PRN Reason: Pain (moderate 4-6) Simvastatin (Zocor) 20 mg PO DAILY [facility] Last Admin: 02/23/19 08:35 Dose: 20 mg Sodium Chloride (Saline Flush) 10 ml FLUSH ASDIRECTED PRN PRN Reason: Keep Vein Open Last Admin: 02/21/19 21:12 Dose: 10 ml Sodium Chloride (Saline Flush) 2.5 ml FLUSH ASDIRECTED PRN PRN Reason: Keep Vein Open Last Admin: 02/21/19 21:12 Dose: 2.5 ml Temazepam (Restoril) 15 mg PO BEDTIME PRN PRN Reason: Sleep Discontinued Medications Furosemide (Lasix) 20 mg PO DAILY [facility] Last Admin: 02/22/19 09:02 Dose: 20 mg Lisinopril (Prinivil) 10 mg PO DAILY [facility] Last Admin: 02/22/19 09:05 Dose: 10 mg - Exam Quality Assessment: Denies: Supplemental Oxygen General: Reports: Alert, Oriented, Cooperative, No Acute Distress HEENT: Reports: Pupils Equal, Pupils Reactive Neck: Reports: Supple, Other (soft c collar in place) Lungs: Reports: Clear to Auscultation, Normal Respiratory Effort Cardiovascular: Reports: Regular Rate, Regular Rhythm, No Murmurs Back Exam: Reports: Normal Inspection, Full Range of Motion Extremities: Normal Inspection, Normal Range of Motion, Non-Tender, No Pedal Edema Neurological: Reports: No New Focal Deficit, Other (baseline recent memory loss) Psy/Mental Status: Reports: Alert, Normal Affect, Normal Mood *Q Meaningful Use (DIS) - VTE *Q VTE Mechanical Contraindications *Q: At Risk for Falls VTE Pharmacological Contraindications *Q: Risk of Bleeding <Erik Valadez - Last Filed: 02/23/19 10:31> Discharge Summary - Hospital Course HPI Initial Comments: I have seen and examined to patient independently of Hayley Read CNP. I have discussed the case for care of this patient with him. I have reviewed and approve of the plan of care as outlined by her. Please see orders. - Discharge Diagnosis/Problem(s) (1) Hyponatremia SNOMED Code(s): 69684647 ICD Code: E87.1 - HYPO-OSMOLALITY AND HYPONATREMIA Status: Acute Priority : High Current Visit: Yes (2) Syncope SNOMED Code(s): 053048974 ICD Code: R55 - SYNCOPE AND COLLAPSE Status: Acute Priority: High Current Visit: Yes Qualifiers: Syncope type: unspecified Qualified Code(s): R55 - Syncope and collapse (3) C2 cervical fracture SNOMED Code(s): 966600300 ICD Code: S12.100A - UNSP DISP FX OF SECOND CERVICAL VERTEBRA, INIT FOR CLOS FX Status: Acute Priority: High Current Visit: Yes Qualifiers: Encounter type: subsequent encounter Fracture type: closed Fracture morphology: unspecified fracture morphology Fracture alignment: nondisplaced Fracture healing: with routine healing Qualified Code(s): S12.101D - Unspecified nondisplaced fracture of second cervical vertebra, subsequent encounter for fracture with routine healing (4) Risk for falls SNOMED Code(s): 243473026 ICD Code: Z91.81 - HISTORY OF FALLING Status: Acute Priority: High Current Visit: Yes - Patient Summary/Data Consults: Consultations 02/22/19 13:44 Consult to Wound Care Services [CONS] Routine - Patient Data Vitals - Most Recent: Last Vital Signs Temp 36.8 C 02/23/19 08:00 Pulse 68 02/23/19 08:35 Resp 16 02/23/19 08:00 BP 141/66 H 02/23/19 08:35 Pulse Ox 97 02/23/19 08:00 Orthostatic Blood Pressure [ 147/73 Standing] Orthostatic Blood Pressure [ 151/7 Sitting] Orthostatic Blood Pressure [ 144/63 Supine] I&O - Last 24 hours: Intake & Output 02/22/19 02/23/19 02/23/19 22:59 06:59 14:59 Intake Total 616 1233 120 Output Total 900 1200 Balance -284 33 120 Lab Results - Last 24 hrs: Laboratory Results - last 24 hr 02/23/19 Range/Units 05:20 Sodium 131 L (136-148) mmol/L Potassium 4.4 (3.5-5.1) mmol/L Chloride 99 (98-107) mmol/L Carbon Dioxide 24.7 (21.0-32.0) mmol/L BUN 24 H (7.0-18.0) mg/dL Creatinine 1.5 H (0.8-1.3) mg/dL Est Cr Clr Drug Dosing 30.13 mL/min Estimated GFR (MDRD) 44.1 ml/min Glucose 107 H (74-106) mg/dL Calcium 8.7 (8.5-10.1) mg/dL Med Orders - Current: Current Medications Acetaminophen (Tylenol) 650 mg PO Q4H PRN PRN Reason: Pain (Mild 1-3)/fever Last Admin: 02/22/19 20:46 Dose: 650 mg Amlodipine Besylate (Norvasc) 5 mg PO DAILY [facility] Last Admin: 02/23/19 08:34 Dose: 5 mg Clopidogrel Bisulfate (Plavix) 75 mg PO DAILY [facility] Last Admin: 02/23/19 08:35 Dose: 75 mg Docusate Sodium (Colace) 100 mg PO BID PRN PRN Reason: Constipation Famotidine (Pepcid) 20 mg PO DAILY PRN PRN Reason: HEARTBURN Sodium Chloride (Normal Saline) 250 mls @ 999 mls/hr IV STAT [facility] Last Admin: 02/21/19 21:12 Dose: 999 mls/hr Sodium Chloride (Normal Saline) 1,000 mls @ 75 mls/hr IV ASDIRECTED [facility] Last Admin: 02/22/19 21:42 Dose: 75 mls/hr Metoprolol Succinate (Toprol Xl) 25 mg PO DAILY [facility] Last Admin: 02/23/19 08:35 Dose: 25 mg Oxycodone HCl (Oxycodone) 5 mg PO Q4H PRN PRN Reason: Pain (moderate 4-6) Simvastatin (Zocor) 20 mg PO DAILY [facility] Last Admin: 02/23/19 08:35 Dose: 20 mg Sodium Chloride (Saline Flush) 10 ml FLUSH ASDIRECTED PRN PRN Reason: Keep Vein Open Last Admin: 02/21/19 21:12 Dose: 10 ml Sodium Chloride (Saline Flush) 2.5 ml FLUSH ASDIRECTED PRN PRN Reason: Keep Vein Open Last Admin: 02/21/19 21:12 Dose: 2.5 ml Temazepam (Restoril) 15 mg PO BEDTIME PRN PRN Reason: Sleep Discontinued Medications Furosemide (Lasix) 20 mg PO DAILY [facility] Last Admin: 02/22/19 09:02 Dose: 20 mg Lisinopril (Prinivil) 10 mg PO DAILY [facility] Last Admin: 02/22/19 09:05 Dose: 10 mg
== END 2019-02-23 10:00 | disposition home health service (06) ==
LOC: MW.ED 20:05 → MW.MS 21:02
PROVIDERS: ADMIT Internal Medicine; ATTEND Internal Medicine
DX: E87.1 Hypo-osmolality and hyponatremia (principal); R41.82 Altered mental status, unspecified; S12.101D Unspecified nondisplaced fracture of second cervical vertebra, subsequent encounter for fracture with routine healing; R55 Syncope and collapse; I25.10 Atherosclerotic heart disease of native coronary artery without angina pectoris; I25.2 Old myocardial infarction; I10 Essential (primary) hypertension; E78.00 Pure hypercholesterolemia, unspecified; F17.210 Nicotine dependence, cigarettes, uncomplicated; Z79.82 Long term (current) use of aspirin; Z79.899 Other long term (current) drug therapy; Z91.81 History of falling; Z88.0 Allergy status to penicillin
CPT/HCPCS: 36415; 70450; 71045; 80048; 80053; 81001; 84443; 84484; 85025; 85610; 93005; 96360; 96361; 99285; A9270; G0378; J7040; J7050

== ENCOUNTER 2019-04-08 05:30 | Inpatient (IN) | payer MEDICARE, BC ==
[2019-04-08] MEDS ORDERED: methylPREDNISolone Sodium Succinate 125 MG/2 ML SDV IVPUSH ONE (05:31)
[2019-04-08] MEDS ORDERED: Albuterol/Ipratropium 3.0-0.5 MG/3 ML Neb Soln NEB ONE (05:31)
--- NOTE | 2019-04-08 05:34 | EDM.PDOC ---
ED HPI GENERAL MEDICAL PROBLEM - General Stated Complaint: SHORTNESS OF BREATH Time Seen by Provider: 04/08/19 05:33 Source of Information: Reports: Patient - History of Present Illness INITIAL COMMENTS - FREE TEXT/NARRATIVE: HISTORY AND PHYSICAL: History of present illness: PT presents from home via EMS with shortness of breath and hypoxia, EMS had provided a.m. albuterol treatment He arrives in no distress however is 85% on room air No fever nausea vomiting chills sweats no chest pain headache dizziness palpitation no bowel or urine symptoms Review of systems: As per history of present illness and below otherwise all systems reviewed and negative. Past medical history: As per history of present illness and as reviewed below otherwise noncontributory. Surgical history: As per history of present illness and as reviewed below otherwise noncontributory. Social history: No reported history of drug or alcohol abuse. Family history: As per history of present illness and as reviewed below otherwise noncontributory. Physical exam: HEENT: Atraumatic, normocephalic, pupils reactive, negative for conjunctival pallor or scleral icterus, mucous membranes moist, throat clear, neck supple, nontender, trachea midline. Lungs: Decreased air movement throughout. Heart: S1S2, regular, negative for clicks, rubs, or JVD. Abdomen: Soft, nondistended, nontender. Negative for masses or hepatosplenomegaly. Negative for costovertebral tenderness. Pelvis: Stable nontender. Genitourinary: Deferred. Rectal: Deferred. Extremities: Atraumatic, negative for cords or calf pain. Neurovascular unremarkable. Neuro: Awake, alert, oriented. Cranial nerves II through XII unremarkable. Cerebellum unremarkable. Motor and sensory unremarkable throughout. Exam nonfocal. Diagnostics: [CBC CMP UA troponin EKG Chest 1 view ] Therapeutics: [Normal saline DuoNeb Solu-Medrol 125 mg IV 1 g Rocephin IV Azithromycin 500mg Lasix 20 mg IV ] Impression: hypoxia CHF Infiltrate on chest x-ray leukocytosis-18,000 Hyponatremia 124 Chronic history of baseline ] Definitive disposition and diagnosis as appropriate pending reevaluation and review of above. - Related Data Allergies Allergy/AdvReac Type Severity Reaction Status Date / Time Penicillins Allergy Syncope Verified 04/08/19 05:37 Home Meds: Home Meds Aspirin 81 mg PO DAILY 01/25/16 [History] Clopidogrel [Plavix] 75 mg PO DAILY 01/25/16 [History] Cod Liver Oil 1 tab PO DAILY 01/25/16 [History] Metoprolol Succinate [Toprol XL] 25 mg PO DAILY 01/25/16 [History] Ranitidine [Zantac] 150 mg PO DAILY PRN 01/25/16 [History] Simvastatin [Zocor] 20 mg PO BEDTIME 01/25/16 [History] amLODIPine [Norvasc] 5 mg PO DAILY 01/25/16 [History] Cholecalciferol (Vitamin D3) [Vitamin D3] 2,000 unit PO DAILY 02/21/19 [History] Naproxen 250 mg PO DAILY 04/08/19 [History] Past Medical History HEENT History: Reports: Other (See Below) Other HEENT History: plugged ears about 8 years ago Cardiovascular History: Reports: High Cholesterol, Hypertension, [place] Respiratory History: Reports: None Gastrointestinal History: Reports: None Genitourinary History: Reports: None Musculoskeletal History: Reports: None Neurological History: Reports: Concussion Psychiatric History: Reports: None Endocrine/Metabolic History: Reports: None Hematologic History: Reports: None Immunologic History: Reports: None Oncologic (Cancer) History: Reports: Other (See Below) Other Oncologic History: 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 Dermatologic History: Reports: None - Infectious Disease History Infectious Disease History: Reports: Chicken Pox, Measles, Mumps - Past Surgical History Head Surgeries/Procedures: Reports: None HEENT Surgical History: Reports: None Cardiovascular Surgical History: Reports: Coronary Artery Stent Respiratory Surgical History: Reports: None GI Surgical History: Reports: None Male Surgical History: Reports: None Endocrine Surgical History: Reports: None Neurological Surgical History: Reports: None Musculoskeletal Surgical History: Reports: None Oncologic Surgical History: Reports: None Dermatological Surgical History: Reports: None Social & Family History - Family History Family Medical History: Noncontributory - Caffeine Use Caffeine Use: Reports: Soda - Living Situation & Occupation Living situation: Reports: Single, with Significant Other Occupation: Retired ED ROS GENERAL - Review of Systems Review Of Systems: See Below ED EXAM, GENERAL - Physical Exam Exam: See Below Course - Vital Signs Last Recorded V/S: Last Vital Signs Temp 97.5 F 04/08/19 06:13 Pulse 77 04/08/19 06:13 Resp 24 H 04/08/19 06:13 BP 130/56 L 04/08/19 06:13 Pulse Ox 98 04/08/19 06:13 - Orders/Labs/Meds Orders: Active Orders 24 hr Category Date Time Status EKG Documentation Completion [RC] STAT Care 04/08/19 05:31 Active RT Aerosol Therapy [RC] ASDIRECTED Care 04/08/19 05:31 Active UA RFX MARC AND CULT IF INDIC [URIN] Stat Lab 04/08/19 05:31 Ordered Azithromycin [Zithromax] 500 mg Med 04/08/19 06:25 Ordered Sodium Chloride 0.9% [Normal Saline] 500 ml IV ONETIME Sodium Chloride 0.9% [Normal Saline] 1,000 ml Med 04/08/19 05:45 Active IV STAT cefTRIAXone [Rocephin in Dextrose,Iso-Osm 1 GM/50 ML] 1 Med 04/08/19 06:22 Ordered gm Premix Bag 1 bag IV ONETIME Medication Orders Sodium Chloride (Normal Saline) 1,000 mls @ 125 mls/hr IV STAT NETO Last Admin: 04/08/19 05:52 Dose: 125 mls/hr Ceftriaxone Sodium/Dextrose 1 (gm/ Premix) 50 mls @ 100 mls/hr IV ONETIME ONE Stop: 04/08/19 06:51 Azithromycin 500 mg/ Sodium (Chloride) 500 mls @ 250 mls/hr IV ONETIME ONE Stop: 04/08/19 08:24 Labs: Laboratory Tests 04/08/19 04/08/19 04/08/19 Range/Units 05:45 05:45 05:45 WBC 18.01 H (4.0-11.0) K/uL RBC 3.28 L (4.50-5.90) M/uL Hgb 10.4 L (13.0-17.0) g/dL Hct 29.8 L (38.0-50.0) % MCV 90.9 (80.0-98.0) fL MCH 31.7 (27.0-32.0) pg MCHC 34.9 (31.0-37.0) g/dL RDW Std Deviation 44.8 (28.0-62.0) fl RDW Coeff of Dalila 13 (11.0-15.0) % Plt Count 223 (150-400) K/uL MPV 9.20 (7.40-12.00) fL Add Manual Diff YES Neutrophils % (Manual) 82 H (48.0-80.0) % Band Neutrophils % 4 % Lymphocytes % (Manual) 5 L (16.0-40.0) % Monocytes % (Manual) 8 (0.0-15.0) % Basophils % (Manual) 1 (0.0-1.5) % Nucleated RBC % 0.0 /100WBC Absolute Seg Neuts 14.8 H (1.4-5.7) Band Neutrophils # 0.7 Lymphocytes # (Manual) 0.9 (0.6-2.4) Monocytes # (Manual) 1.4 H (0.0-0.8) Basophils # (Manual) 0.2 H (0.0-0.1) Nucleated RBCs # 0 K/uL Sodium 124 L (136-148) mmol/L Potassium 4.9 (3.5-5.1) mmol/L Chloride 93 L (98-107) mmol/L Carbon Dioxide 23.1 (21.0-32.0) mmol/L BUN 20 H (7.0-18.0) mg/dL Creatinine 1.5 H (0.8-1.3) mg/dL Est Cr Clr Drug Dosing 30.20 mL/min Estimated GFR (MDRD) 44.1 ml/min Glucose 141 H (74-106) mg/dL Calcium 8.4 L (8.5-10.1) mg/dL Total Bilirubin 0.8 (0.2-1.0) mg/dL AST 13 L (15-37) IU/L ALT 18 (14-63) IU/L Alkaline Phosphatase 109 (46-116) U/L Troponin I < 0.050 (0.000-0.056) ng/mL B-Natriuretic Peptide 610 H (<100) PG/ML Total Protein 7.3 (6.4-8.2) g/dL Albumin 3.6 (3.4-5.0) g/dL Globulin 3.7 (2.6-4.0) g/dL Albumin/Globulin Ratio 1.0 (0.9-1.6) Meds: Medications Generic Name Dose Route Start Last Admin Trade Name Freq PRN Reason Stop Dose Admin Sodium Chloride 1,000 mls @ 125 mls/hr 04/08/19 05:45 04/08/19 05:52 Normal Saline IV 125 mls/hr STAT NETO Administration Ceftriaxone Sodium/Dextrose 1 50 mls @ 100 mls/hr 04/08/19 06:22 gm/ Premix IV 04/08/19 06:51 ONETIME ONE Azithromycin 500 mg/ Sodium 500 mls @ 250 mls/hr 04/08/19 06:25 Chloride IV 04/08/19 08:24 ONETIME ONE Discontinued Medications Generic Name Dose Route Start Last Admin Trade Name Kamran PRN Reason Stop Dose Admin Albuterol/Ipratropium 3 ml 04/08/19 05:31 04/08/19 05:31 Duoneb 3.0-0.5 Mg/3 Ml NEB 04/08/19 05:32 3 ml ONETIME ONE Administration Furosemide 20 mg 04/08/19 06:23 Lasix IVPUSH 04/08/19 06:24 NOW ONE Methylprednisolone Sodium Succinate 125 mg 04/08/19 05:31 04/08/19 05:36 Solu-Medrol IVPUSH 04/08/19 05:32 125 mg ONETIME ONE Administration Departure - Departure Time of Disposition: 06:30 Disposition: Admitted As Inpatient 66 Condition: Poor Clinical Impression: Hypoxia, CHF (congestive heart failure), Infiltrate of lung present on chest x- ray - Discharge Information Referrals: Kranthi Lim MD [Primary Care Provider] - - My Orders Last 24 Hours: My Active Orders 04/08/19 05:31 EKG Documentation Completion [RC] STAT RT Aerosol Therapy [RC] ASDIRECTED UA RFX MARC AND CULT IF INDIC [URIN] Stat 04/08/19 05:45 Sodium Chloride 0.9% [Normal Saline] 1,000 ml IV STAT 04/08/19 06:22 cefTRIAXone [Rocephin in Dextrose,Iso-Osm 1 GM/50 ML] 1 gm Premix Bag 1 bag IV ONETIME 04/08/19 06:25 Azithromycin [Zithromax] 500 mg Sodium Chloride 0.9% [Normal Saline] 500 ml IV ONETIME - Assessment/Plan Last 24 Hours: My Active Orders 04/08/19 05:31 EKG Documentation Completion [RC] STAT RT Aerosol Therapy [RC] ASDIRECTED UA RFX MARC AND CULT IF INDIC [URIN] Stat 04/08/19 05:45 Sodium Chloride 0.9% [Normal Saline] 1,000 ml IV STAT 04/08/19 06:22 cefTRIAXone [Rocephin in Dextrose,Iso-Osm 1 GM/50 ML] 1 gm Premix Bag 1 bag IV ONETIME 04/08/19 06:25 Azithromycin [Zithromax] 500 mg Sodium Chloride 0.9% [Normal Saline] 500 ml IV ONETIME
[2019-04-08] MEDS ORDERED: Sodium Chloride 0.9% 1,000 ML IV SCH (05:45)
--- NOTE | 2019-04-08 06:11 | CR ---
Indication: Shortness of breath and hypoxia Technique: Chest 1 view Comparison: February 21, 2019 Findings/Impression: Cardiovascular and mediastinum: Borderline cardiomegaly. Lungs and pleural space: There is diffuse interstitial edema which is nonspecific. Relatively small ill-defined opacity is lateral in the left mid lung, possibly representing pulmonary edema or pneumonitis. No other focal infiltrate or effusion. No pneumothorax. Bones and soft tissues: No acute findings. Dictated by Colby Solorio MD @ Apr 08 2019 6:05AM Signed by Dr. Colby Solorio @ Apr 08 2019 6:09AM
[2019-04-08 06:13] LABS: BLOOD UREA NITROGEN,BUN 20 mg/dL (7.0-18.0); CARBON DIOXIDE,CO2 23.1 mmol/L (21.0-32.0); CHLORIDE,CL 93 mmol/L (98-107); GLUCOSE RANDOM 141 mg/dL (74-106); POTASSIUM,K 4.9 mmol/L (3.5-5.1); SODIUM,NA 124 mmol/L (136-148)
[2019-04-08] MEDS ORDERED: cefTRIAXone 1 GM in Premix Bag 1 BAG IV ONE (06:22)
[2019-04-08] MEDS ORDERED: Azithromycin 1,000 MG in Sodium Chloride 0.9% 500 ML IV ONE (06:23)
[2019-04-08] MEDS ORDERED: Furosemide 40 MG/4 ML VIAL IVPUSH ONE (06:23)
[2019-04-08] MEDS ORDERED: Azithromycin 500 MG in Sodium Chloride 0.9% 500 ML IV ONE (06:25)
--- NOTE | 2019-04-08 07:05 | PCM.HP ---
H&P History of Present Illness - General Date of Service: 04/08/19 Admit Problem/Dx: Admission Diagnosis/Problem Admission Diagnosis/Problem Hypoxia Source of Information: Patient History Limitations: Reports: No Limitations - History of Present Illness Initial Comments - Free Text/Narative: The patient is an 89-year-old gentleman who has been admitted hospitalization before had presented to the emergency department with a complaint of shortness of breath. The patient has a history of hyponatremia and he had been taken off of his Lasix in order to help improve this. The patient had been attempting to work, got severely short of breath and had to present to the emergency department. He had an oxygen saturation at home of 85% and had been in respiratory distress in the emergency department. The patient previously had been hospitalized for similar episodes in February 2019. It should be noted that the patient does have a cervical fracture that is in the process of healing and he is required to wear a soft cervical collar continuously. The patient has denied any fever or chills. Onset of Symptoms: Reports: Gradual Duration of Symptoms: Reports: Day(s): Location: Reports: Generalized Quality: Reports: Ache Severity: Moderate Improves with: Reports: Rest Worsens with: Reports: Movement Context: Reports: Activity/Exercise Associated Symptoms: Reports: No Other Symptoms - Related Data Allergies/Adverse Reactions: Allergies Allergy/AdvReac Type Severity Reaction Status Date / Time Penicillins Allergy Syncope Verified 04/08/19 05:37 Home Medications: Home Meds Aspirin 81 mg PO DAILY 01/25/16 [History] Clopidogrel [Plavix] 75 mg PO DAILY 01/25/16 [History] Cod Liver Oil 1 tab PO DAILY 01/25/16 [History] Metoprolol Succinate [Toprol XL] 25 mg PO DAILY 01/25/16 [History] Ranitidine [Zantac] 150 mg PO DAILY PRN 01/25/16 [History] Simvastatin [Zocor] 20 mg PO BEDTIME 01/25/16 [History] amLODIPine [Norvasc] 5 mg PO DAILY 01/25/16 [History] Cholecalciferol (Vitamin D3) [Vitamin D3] 2,000 unit PO DAILY 02/21/19 [History] Naproxen 250 mg PO DAILY 04/08/19 [History] Past Medical History HEENT History: Reports: Other (See Below) Other HEENT History: plugged ears about 8 years ago Cardiovascular History: Reports: High Cholesterol, Hypertension, [place] Respiratory History: Reports: None Gastrointestinal History: Reports: None Genitourinary History: Reports: None Musculoskeletal History: Reports: None Neurological History: Reports: Concussion Psychiatric History: Reports: None Endocrine/Metabolic History: Reports: None Hematologic History: Reports: None Immunologic History: Reports: None Oncologic (Cancer) History: Reports: Other (See Below) Other Oncologic History: 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 Dermatologic History: Reports: None - Infectious Disease History Infectious Disease History: Reports: Chicken Pox, Measles, Mumps - Past Surgical History Head Surgeries/Procedures: Reports: None HEENT Surgical History: Reports: None Cardiovascular Surgical History: Reports: Coronary Artery Stent Respiratory Surgical History: Reports: None GI Surgical History: Reports: None Male Surgical History: Reports: None Endocrine Surgical History: Reports: None Neurological Surgical History: Reports: None Musculoskeletal Surgical History: Reports: None Oncologic Surgical History: Reports: None Dermatological Surgical History: Reports: None Social & Family History - Family History Family Medical History: Noncontributory - Tobacco Use Smoking Status *Q: Current Every Day Smoker Years of Tobacco use: 1 Packs/Tins Daily: 65 - Caffeine Use Caffeine Use: Reports: Soda - Recreational Drug Use Recreational Drug Use: No - Living Situation & Occupation Living situation: Reports: Single, with Significant Other Occupation: Retired H&P Review of Systems - Review of Systems: Review Of Systems: See Below General: Reports: Weakness, Fatigue HEENT: Reports: No Symptoms Pulmonary: Reports: Shortness of Breath, Cough. Denies: Sputum Cardiovascular: Reports: No Symptoms Gastrointestinal: Reports: No Symptoms Genitourinary: Reports: No Symptoms Musculoskeletal: Reports: No Symptoms Skin: Reports: No Symptoms Psychiatric: Reports: No Symptoms Neurological: Reports: No Symptoms Hematologic/Lymphatic: Reports: No Symptoms Immunologic: Reports: No Symptoms Exam - Exam Exam: See Below - Vital Signs Vital Signs: Last Vital Signs Temp 36.4 C 04/08/19 06:13 Pulse 74 04/08/19 06:54 Resp 24 H 04/08/19 06:54 BP 121/56 L 04/08/19 06:54 Pulse Ox 96 04/08/19 06:54 Weight: 63.957 kg - Exam Quality Assessment: Supplemental Oxygen General: Alert, Oriented, Cooperative, Mild Distress HEENT: Conjunctiva Clear, EACs Clear, EOMI, Hearing Intact, PERRLA. No: Mucosa Moist & [place] (Dry) Neck: Supple, Trachea Midline, JVD Lungs: Decreased Breath Sounds, Rales. No: Normal Respiratory Effort Cardiovascular: Regular Rate, Regular Rhythm GI/Abdominal Exam: Normal Bowel Sounds, Soft, No Distention, No Abnormal Bruit Back Exam: Full Range of Motion (Appropriate for age). No: Normal Inspection ( Kyphosis, increased AP diameter) Extremities: Normal Inspection, No Pedal Edema Skin: Warm, Dry, Intact Neurological: Cranial Nerves Intact Psychiatric: Alert, Normal Affect, Normal Mood - Patient Data Lab Results Last 24 hrs: Laboratory Results - last 24 hr 04/08/19 04/08/19 04/08/19 Range/Units 05:45 05:45 05:45 WBC 18.01 H (4.0-11.0) K/uL RBC 3.28 L (4.50-5.90) M/uL Hgb 10.4 L (13.0-17.0) g/dL Hct 29.8 L (38.0-50.0) % MCV 90.9 (80.0-98.0) fL MCH 31.7 (27.0-32.0) pg MCHC 34.9 (31.0-37.0) g/dL RDW Std Deviation 44.8 (28.0-62.0) fl RDW Coeff of Dalila 13 (11.0-15.0) % Plt Count 223 (150-400) K/uL MPV 9.20 (7.40-12.00) fL Add Manual Diff YES Neutrophils % (Manual) 82 H (48.0-80.0) % Band Neutrophils % 4 % Lymphocytes % (Manual) 5 L (16.0-40.0) % Monocytes % (Manual) 8 (0.0-15.0) % Basophils % (Manual) 1 (0.0-1.5) % Nucleated RBC % 0.0 /100WBC Absolute Seg Neuts 14.8 H (1.4-5.7) Band Neutrophils # 0.7 Lymphocytes # (Manual) 0.9 (0.6-2.4) Monocytes # (Manual) 1.4 H (0.0-0.8) Basophils # (Manual) 0.2 H (0.0-0.1) Nucleated RBCs # 0 K/uL Sodium 124 L (136-148) mmol/L Potassium 4.9 (3.5-5.1) mmol/L Chloride 93 L (98-107) mmol/L Carbon Dioxide 23.1 (21.0-32.0) mmol/L BUN 20 H (7.0-18.0) mg/dL Creatinine 1.5 H (0.8-1.3) mg/dL Est Cr Clr Drug Dosing 30.20 mL/min Estimated GFR (MDRD) 44.1 ml/min Glucose 141 H (74-106) mg/dL Calcium 8.4 L (8.5-10.1) mg/dL Total Bilirubin 0.8 (0.2-1.0) mg/dL AST 13 L (15-37) IU/L ALT 18 (14-63) IU/L Alkaline Phosphatase 109 (46-116) U/L Troponin I < 0.050 (0.000-0.056) ng/mL B-Natriuretic Peptide 610 H (<100) PG/ML Total Protein 7.3 (6.4-8.2) g/dL Albumin 3.6 (3.4-5.0) g/dL Globulin 3.7 (2.6-4.0) g/dL Albumin/Globulin Ratio 1.0 (0.9-1.6) Result Diagrams: 04/08/19 05:45 04/08/19 05:45 - Problem List (1) Acute and chronic respiratory failure ([id number]) SNOMED Code(s): 97579598 ICD Code: J96.20 - ACUTE AND CHR RESP FAILURE, UNSP W HYPOXIA OR HYPERCAPNIA Status: Acute Current Visit: Yes Qualifiers: Respiratory failure complication: hypoxia Qualified Code(s): J96.21 - Acute and chronic respiratory failure with hypoxia (2) CHF (congestive heart failure) SNOMED Code(s): 58853437 ICD Code: I50.9 - HEART FAILURE, UNSPECIFIED Status: Acute Current Visit : Yes Qualifiers: Heart failure type: unspecified Heart failure chronicity: unspecified Qualified Code(s): I50.9 - Heart failure, unspecified (3) Hypoxia SNOMED Code(s): 866142715 ICD Code: R09.02 - HYPOXEMIA Status: Acute Priority: High Current Visit : Yes (4) C2 cervical fracture SNOMED Code(s): 529739581 ICD Code: S12.100A - UNSP DISP FX OF SECOND CERVICAL VERTEBRA, INIT FOR CLOS FX Status: Acute Priority: High Current Visit: No Qualifiers: Encounter type: subsequent encounter Fracture type: closed Fracture morphology: unspecified fracture morphology Fracture alignment: nondisplaced Fracture healing: with routine healing Qualified Code(s): S12.101D - Unspecified nondisplaced fracture of second cervical vertebra, subsequent encounter for fracture with routine healing (5) Smoker SNOMED Code(s): 11831904 ICD Code: F17.200 - NICOTINE DEPENDENCE, UNSPECIFIED, UNCOMPLICATED Status : Chronic Priority: High Current Visit: Yes (6) COPD exacerbation SNOMED Code(s): 765369905 ICD Code: J44.1 - CHRONIC OBSTRUCTIVE PULMONARY DISEASE W (ACUTE) EXACERBATION Status: Acute Priority: High Current Visit: Yes Problem List Initiated/Reviewed/Updated: Yes Orders Last 24hrs: Active Orders 24 hr Category Date Time Status Admission Status [Patient Status] [ADT] Stat ADT 04/08/19 06:30 Active EKG Documentation Completion [RC] STAT Care 04/08/19 05:31 Active RT Aerosol Therapy [RC] ASDIRECTED Care 04/08/19 05:31 Active UA RFX MARC AND CULT IF INDIC [URIN] Stat Lab 04/08/19 05:31 Ordered Azithromycin [Zithromax] 500 mg Med 04/08/19 06:25 Active Sodium Chloride 0.9% [Normal Saline] 500 ml IV ONETIME Sodium Chloride 0.9% [Normal Saline] 1,000 ml Med 04/08/19 05:45 Active IV STAT Medication Orders Sodium Chloride (Normal Saline) 1,000 mls @ 125 mls/hr IV STAT NETO Last Admin: 04/08/19 05:52 Dose: 125 mls/hr Azithromycin 500 mg/ Sodium (Chloride) 500 mls @ 250 mls/hr IV ONETIME ONE Stop: 04/08/19 08:24 Assessment/Plan Comment:: The patient is an 89-year-old gentleman who has been admitted to observation secondary to a constellation of concerns. The patient does have CHF although his ejection fraction is unknown and a 2-D echocardiogram is been ordered. The patient does have COPD along with exacerbation at this point. The patient will be placed on Lasix to help with his CHF, I placed the patient on ceftriaxone and Solu-Medrol with regards to his COPD exacerbation. The patient says that he stopped smoking yesterday. I've also ordered repeat laboratory studies. The patient has been encouraged to ambulate. He'll have DVT prophylaxis with the use of heparin. Patient should be appropriate for discharge in 1-2 days.
[2019-04-08] MEDS ORDERED: Azithromycin 500 MG in Sodium Chloride 0.9% 250 ML IV ONE (07:23)
[2019-04-08] MEDS ORDERED: Sodium Chloride 0.9% 2.5 ML Syringe FLUSH PRN (08:44)
[2019-04-08] MEDS ORDERED: Docusate Sodium 100 MG Cap PO PRN (08:44)
[2019-04-08] MEDS ORDERED: Acetaminophen 325 MG Tab PO PRN (08:44)
[2019-04-08] MEDS ORDERED: oxyCODONE 5 MG Tab PO PRN (08:44)
[2019-04-08] MEDS ORDERED: Sodium Chloride 0.9% 10 ML Syringe FLUSH PRN (08:44)
[2019-04-08] MEDS ORDERED: Furosemide 20 MG/2 ML VIAL IVPUSH SCH (09:00)
[2019-04-08] MEDS ORDERED: Famotidine 20 MG Tab PO PRN (09:00)
[2019-04-08] MEDS: Heparin Sodium 5,000 Units/ML Vial SUBCUT SCH ×2 (09:46→17:17)
[2019-04-08] MEDS: methylPREDNISolone Sodium Succinate 125 MG/2 ML SDV IV SCH ×2 (09:46→17:17)
[2019-04-08] MEDS: Metoprolol Succinate 25 MG Tab.ER PO SCH (09:47)
[2019-04-08] MEDS: Aspirin 81 MG Tab.Chew PO SCH (09:47)
[2019-04-08] MEDS: Clopidogrel 75 MG Tab PO SCH (09:47)
[2019-04-08] MEDS: amLODIPine 5 MG Tab PO SCH (09:48)
[2019-04-08] MEDS: Albuterol/Ipratropium 3.0-0.5 MG/3 ML Neb Soln NEB PRN (13:22)
[2019-04-08] MEDS: Furosemide 20 MG/2 ML VIAL IVPUSH SCH (13:44)
[2019-04-08] MEDS: Albuterol/Ipratropium 3.0-0.5 MG/3 ML Neb Soln NEB SCH (18:16)
[2019-04-08] MEDS ORDERED: Haloperidol Lactate 5 MG/ML SDV IM ONE (20:58)
[2019-04-08] MEDS ORDERED: LORazepam 1 MG Tab PO ONE (21:00)
[2019-04-08] MEDS: Simvastatin 20 MG Tab PO SCH (21:06)
[2019-04-09] MEDS: Albuterol/Ipratropium 3.0-0.5 MG/3 ML Neb Soln NEB SCH ×4 (00:18→18:02)
[2019-04-09] MEDS: methylPREDNISolone Sodium Succinate 125 MG/2 ML SDV IV SCH ×3 (01:06→16:27)
[2019-04-09] MEDS: Heparin Sodium 5,000 Units/ML Vial SUBCUT SCH ×3 (01:13→16:24)
--- NOTE | 2019-04-09 05:44 | PCM.PN ---
- General Info Date of Service: 04/09/19 Admission Dx/Problem (Free Text): Admission Diagnosis/Problem Admission Diagnosis/Problem Hypoxia, pneumonia, COPD exacerbation Subjective Update: The patient is an 89-year-old gentleman who had been admitted to hospitalization to the emergency department on April 08, 2019. Chest x-ray was noted to be severely clouded with infiltrates. The patient today says that he wants to go home in spite of his hypoxia and high oxygen demands. The patient has denied any pain. The patient also yesterday had some difficulties with wandering the hallways and had required Haldol and Ativan for agitation. Patient 's does not want him to come home. Functional Status: Reports: Pain Controlled - Review of Systems General: Reports: No Symptoms HEENT: Reports: No Symptoms Pulmonary: Reports: Shortness of Breath, Wheezing Cardiovascular: Reports: No Symptoms Gastrointestinal: Reports: No Symptoms Genitourinary: Reports: No Symptoms Musculoskeletal: Reports: No Symptoms Skin: Reports: No Symptoms Neurological: Reports: No Symptoms Psychiatric: Reports: No Symptoms - Patient Data Vitals - Most Recent: Last Vital Signs Temp 36 C 04/09/19 04:00 Pulse 95 04/09/19 04:00 Resp 20 04/09/19 04:00 BP 138/70 04/09/19 04:00 Pulse Ox 93 L 04/09/19 04:00 Weight - Most Recent: 63.957 kg I&O - Last 24 Hours: Intake & Output 04/08/19 04/08/19 04/09/19 14:59 22:59 06:59 Intake Total 200 500 340 Output Total 1250 300 Balance 200 -750 40 Lab Results Last 24 Hours: Laboratory Results - last 24 hr 04/08/19 04/08/19 04/08/19 Range/Units 05:31 05:45 05:45 WBC 18.01 H (4.0-11.0) K/uL RBC 3.28 L (4.50-5.90) M/uL Hgb 10.4 L (13.0-17.0) g/dL Hct 29.8 L (38.0-50.0) % MCV 90.9 (80.0-98.0) fL MCH 31.7 (27.0-32.0) pg MCHC 34.9 (31.0-37.0) g/dL RDW Std Deviation 44.8 (28.0-62.0) fl RDW Coeff of Dalila 13 (11.0-15.0) % Plt Count 223 (150-400) K/uL MPV 9.20 (7.40-12.00) fL Add Manual Diff YES Neutrophils % (Manual) 82 H (48.0-80.0) % Band Neutrophils % 4 % Lymphocytes % (Manual) 5 L (16.0-40.0) % Monocytes % (Manual) 8 (0.0-15.0) % Basophils % (Manual) 1 (0.0-1.5) % Nucleated RBC % 0.0 /100WBC Absolute Seg Neuts 14.8 H (1.4-5.7) Band Neutrophils # 0.7 Lymphocytes # (Manual) 0.9 (0.6-2.4) Monocytes # (Manual) 1.4 H (0.0-0.8) Basophils # (Manual) 0.2 H (0.0-0.1) Nucleated RBCs # 0 K/uL Sodium 124 L (136-148) mmol/L Potassium 4.9 (3.5-5.1) mmol/L Chloride 93 L (98-107) mmol/L Carbon Dioxide 23.1 (21.0-32.0) mmol/L BUN 20 H (7.0-18.0) mg/dL Creatinine 1.5 H (0.8-1.3) mg/dL Est Cr Clr Drug Dosing 30.20 mL/min Estimated GFR (MDRD) 44.1 ml/min Glucose 141 H (74-106) mg/dL Calcium 8.4 L (8.5-10.1) mg/dL Total Bilirubin 0.8 (0.2-1.0) mg/dL AST 13 L (15-37) IU/L ALT 18 (14-63) IU/L Alkaline Phosphatase 109 (46-116) U/L Troponin I < 0.050 (0.000-0.056) ng/mL B-Natriuretic Peptide (<100) PG/ML Total Protein 7.3 (6.4-8.2) g/dL Albumin 3.6 (3.4-5.0) g/dL Globulin 3.7 (2.6-4.0) g/dL Albumin/Globulin Ratio 1.0 (0.9-1.6) Urine Color YELLOW Urine Appearance CLEAR Urine pH 5.5 (5.0-8.0) Ur Specific [place] 1.010 (1.001-1.035) Urine Protein NEGATIVE (NEGATIVE) mg/dL Urine Glucose (UA) NEGATIVE (NEGATIVE) mg/dL Urine Ketones NEGATIVE (NEGATIVE) mg/dL Urine Occult Blood TRACE-INTACT H (NEGATIVE) Urine Nitrite NEGATIVE (NEGATIVE) Urine Bilirubin NEGATIVE (NEGATIVE) Urine Urobilinogen 0.2 (<2.0) EU/dL Ur Leukocyte Esterase NEGATIVE (NEGATIVE) Urine RBC 0-1 (0-2/HPF) Urine WBC 0-1 (0-5/HPF) Ur Epithelial Cells RARE (NONE-FEW) Urine Bacteria RARE (NEGATIVE) 04/08/19 Range/Units 05:45 WBC (4.0-11.0) K/uL RBC (4.50-5.90) M/uL Hgb (13.0-17.0) g/dL Hct (38.0-50.0) % MCV (80.0-98.0) fL MCH (27.0-32.0) pg MCHC (31.0-37.0) g/dL RDW Std Deviation (28.0-62.0) fl RDW Coeff of [place]ila (11.0-15.0) % Plt Count (150-400) K/uL MPV (7.40-12.00) fL Add Manual Diff Neutrophils % (Manual) (48.0-80.0) % Band Neutrophils % % Lymphocytes % (Manual) (16.0-40.0) % Monocytes % (Manual) (0.0-15.0) % Basophils % (Manual) (0.0-1.5) % Nucleated RBC % /100WBC Absolute Seg Neuts (1.4-5.7) Band Neutrophils # Lymphocytes # (Manual) (0.6-2.4) Monocytes # (Manual) (0.0-0.8) Basophils # (Manual) (0.0-0.1) Nucleated RBCs # K/uL Sodium (136-148) mmol/L Potassium (3.5-5.1) mmol/L Chloride (98-107) mmol/L Carbon Dioxide (21.0-32.0) mmol/L BUN (7.0-18.0) mg/dL Creatinine (0.8-1.3) mg/dL Est Cr Clr Drug Dosing mL/min Estimated GFR (MDRD) ml/min Glucose (74-106) mg/dL Calcium (8.5-10.1) mg/dL Total Bilirubin (0.2-1.0) mg/dL AST (15-37) IU/L ALT (14-63) IU/L Alkaline Phosphatase (46-116) U/L Troponin I (0.000-0.056) ng/mL B-Natriuretic Peptide 610 H (<100) PG/ML Total Protein (6.4-8.2) g/dL Albumin (3.4-5.0) g/dL Globulin (2.6-4.0) g/dL Albumin/Globulin Ratio (0.9-1.6) Urine Color Urine Appearance Urine pH (5.0-8.0) Ur Specific [place] (1.001-1.035) Urine Protein (NEGATIVE) mg/dL Urine Glucose (UA) (NEGATIVE) mg/dL Urine Ketones (NEGATIVE) mg/dL Urine Occult Blood (NEGATIVE) Urine Nitrite (NEGATIVE) Urine Bilirubin (NEGATIVE) Urine Urobilinogen (<2.0) EU/dL Ur Leukocyte Esterase (NEGATIVE) Urine RBC (0-2/HPF) Urine WBC (0-5/HPF) Ur Epithelial Cells (NONE-FEW) Urine Bacteria (NEGATIVE) Med Orders - Current: Current Medications Acetaminophen (Tylenol) 650 mg PO Q4H PRN PRN Reason: Pain (Mild 1-3)/fever Albuterol/Ipratropium (Duoneb 3.0-0.5 Mg/3 Ml) 3 ml NEB Q4HRRT PRN PRN Reason: Shortness Of Breath/wheezing Last Admin: 04/08/19 13:22 Dose: 3 ml Albuterol/Ipratropium (Duoneb 3.0-0.5 Mg/3 Ml) 3 ml NEB Q6HRRT [facility] Last Admin: 04/09/19 00:18 Dose: 3 ml Amlodipine Besylate (Norvasc) 5 mg PO DAILY [facility] Last Admin: 04/08/19 09:48 Dose: 5 mg Aspirin (Aspirin) 81 mg PO DAILY [facility] Last Admin: 04/08/19 09:47 Dose: 81 mg Clopidogrel Bisulfate (Plavix) 75 mg PO DAILY [facility] Last Admin: 04/08/19 09:47 Dose: 75 mg Docusate Sodium (Colace) 100 mg PO BID PRN PRN Reason: Constipation Famotidine (Pepcid) 20 mg PO DAILY PRN PRN Reason: Heartburn Furosemide (Lasix) 20 mg IVPUSH BIDDIURETIC [facility] Last Admin: 04/08/19 13:44 Dose: 20 mg Heparin Sodium (Porcine) (Heparin Sodium) 5,000 units SUBCUT Q8H [facility] Last Admin: 04/09/19 01:13 Dose: 5,000 units Ceftriaxone Sodium 1 gm/ (Sodium Chloride) 50 mls @ 100 mls/hr IV Q24H NETO Methylprednisolone Sodium Succinate (Solu-Medrol) 60 mg IV Q8H [facility] Last Admin: 04/09/19 01:06 Dose: 60 mg Metoprolol Succinate (Toprol Xl) 25 mg PO DAILY [facility] Last Admin: 04/08/19 09:47 Dose: 25 mg Oxycodone HCl (Oxycodone) 5 mg PO Q4H PRN PRN Reason: Pain (moderate 4-6) Simvastatin (Zocor) 20 mg PO BEDTIME [facility] Last Admin: 04/08/19 21:06 Dose: 20 mg Sodium Chloride (Saline Flush) 10 ml FLUSH ASDIRECTED PRN PRN Reason: Keep Vein Open Sodium Chloride (Saline Flush) 2.5 ml FLUSH ASDIRECTED PRN PRN Reason: Keep Vein Open Discontinued Medications Albuterol/Ipratropium (Duoneb 3.0-0.5 Mg/3 Ml) 3 ml NEB ONETIME ONE Stop: 04/08/19 05:32 Last Admin: 04/08/19 05:31 Dose: 3 ml Furosemide (Lasix) 20 mg IVPUSH NOW ONE Stop: 04/08/19 06:24 Last Admin: 04/08/19 06:29 Dose: 20 mg Furosemide (Lasix) 20 mg IVPUSH BIDDIURETIC [facility] Last Admin: 04/08/19 10:08 Dose: Not Given Haloperidol Lactate (Haldol) 5 mg IM ONETIME ONE Stop: 04/08/19 20:59 Last Admin: 04/08/19 21:09 Dose: 5 mg Sodium Chloride (Normal Saline) 1,000 mls @ 125 mls/hr IV STAT [facility] Last Admin: 04/08/19 05:52 Dose: 125 mls/hr Ceftriaxone Sodium/Dextrose 1 (gm/ Premix) 50 mls @ 100 mls/hr IV ONETIME ONE Stop: 04/08/19 06:51 Last Admin: 04/08/19 06:32 Dose: 100 mls/hr Azithromycin 500 mg/ Sodium (Chloride) 500 mls @ 250 mls/hr IV ONETIME ONE Stop: 04/08/19 08:24 Last Admin: 04/08/19 11:18 Dose: Not Given Azithromycin 500 mg/ Sodium (Chloride) 250 mls @ 250 mls/hr IV ONETIME ONE Stop: 04/08/19 07:24 Last Admin: 04/08/19 08:20 Dose: 250 mls/hr Lorazepam (Ativan) 1 mg PO ONETIME ONE Stop: 04/08/19 21:01 Last Admin: 04/08/19 20:19 Dose: 1 mg Methylprednisolone Sodium Succinate (Solu-Medrol) 125 mg IVPUSH ONETIME ONE Stop: 04/08/19 05:32 Last Admin: 04/08/19 05:36 Dose: 125 mg - Exam Quality Assessment: Supplemental Oxygen General: Alert, Oriented, Cooperative, No Acute Distress HEENT: Pupils Equal, Pupils Reactive, EOMI. No: Mucous Membr. Moist/[place] (Dry) Neck: Supple, Trachea Midline Lungs: Normal Respiratory Effort, Crackles, Rales (Scattered widely, predominantly right lower lobe) Cardiovascular: Regular Rate, Regular Rhythm GI/Abdominal Exam: Normal Bowel Sounds, No Distention. No: Guarding, Rigid, Rebound Back Exam: Normal Inspection (Kyphosis, age-appropriate) Extremities: Normal Inspection, No Pedal Edema Skin: Warm, Dry, Intact Neurological: No New Focal Deficit Psy/Mental Status: Alert, Normal Affect, Normal Mood - Problem List & Annotations (1) Acute and chronic respiratory failure ([id number]) SNOMED Code(s): 10432326 Code(s): J96.20 - ACUTE AND CHR RESP FAILURE, UNSP W HYPOXIA OR HYPERCAPNIA Status: Acute Priority: High Current Visit: Yes Qualifiers: Respiratory failure complication: hypoxia Qualified Code(s): J96.21 - Acute and chronic respiratory failure with hypoxia (2) CHF (congestive heart failure) SNOMED Code(s): 88877884 Code(s): I50.9 - HEART FAILURE, UNSPECIFIED Status: Acute Current Visit: Yes Qualifiers: Heart failure type: unspecified Heart failure chronicity: unspecified Qualified Code(s): I50.9 - Heart failure, unspecified (3) Hypoxia SNOMED Code(s): 764178106 Code(s): R09.02 - HYPOXEMIA Status: Acute Priority: High Current Visit : Yes (4) C2 cervical fracture SNOMED Code(s): 121412336 Code(s): S12.100A - UNSP DISP FX OF SECOND CERVICAL VERTEBRA, INIT FOR CLOS FX Status: Acute Priority: High Current Visit: No Qualifiers: Encounter type: subsequent encounter Fracture type: closed Fracture morphology: unspecified fracture morphology Fracture alignment: nondisplaced Fracture healing: with routine healing Qualified Code(s): S12.101D - Unspecified nondisplaced fracture of second cervical vertebra, subsequent encounter for fracture with routine healing (5) Smoker SNOMED Code(s): 69502941 Code(s): F17.200 - NICOTINE DEPENDENCE, UNSPECIFIED, UNCOMPLICATED Status: Chronic Priority: High Current Visit: Yes (6) COPD exacerbation SNOMED Code(s): 476174511 Code(s): J44.1 - CHRONIC OBSTRUCTIVE PULMONARY DISEASE W (ACUTE) EXACERBATION Status: Acute Priority: High Current Visit: Yes - Problem List Review Problem List Initiated/Reviewed/Updated: Yes - My Orders Last 24 Hours: My Active Orders 04/08/19 06:40 Telemetry Monitoring [Cardiac Monitoring] [RC] Q8H 04/08/19 08:44 Cardiac Monitoring [RC] CONTINUOUS Oxygen Therapy [RC] PRN Up With Assistance [RC] ASDIRECTED VTE/DVT Education [RC] PER UNIT ROUTINE Vital Signs [RC] Q4H Acetaminophen [Tylenol] 650 mg PO Q4H PRN Albuterol/Ipratropium [DuoNeb 3.0-0.5 MG/3 ML] 3 ml NEB Q4HRRT PRN Docusate Sodium [Colace] 100 mg PO BID PRN Sodium Chloride 0.9% [Saline Flush] 10 ml FLUSH ASDIRECTED PRN Sodium Chloride 0.9% [Saline Flush] 2.5 ml FLUSH ASDIRECTED PRN oxyCODONE 5 mg PO Q4H PRN Saline Lock Insert [OM.PC] Routine Resuscitation Status Routine 04/08/19 08:45 Heparin Sodium 5,000 units SUBCUT Q8H 04/08/19 08:48 RT Aerosol Therapy [RC] ASDIRECTED 04/08/19 09:00 Aspirin 81 mg PO DAILY Clopidogrel [Plavix] 75 mg PO DAILY Famotidine [Pepcid] 20 mg PO DAILY PRN Metoprolol Succinate [Toprol XL] 25 mg PO DAILY amLODIPine [Norvasc] 5 mg PO DAILY methylPREDNISolone Sod Succ [Solu-MEDROL] 60 mg IV Q8H 04/08/19 13:37 RT Aerosol Therapy [RC] ASDIRECTED 04/08/19 14:00 Furosemide [Lasix] 20 mg IVPUSH BIDDIURETIC 04/08/19 18:00 Albuterol/Ipratropium [DuoNeb 3.0-0.5 MG/3 ML] 3 ml NEB Q6HRRT 04/08/19 19:13 Weight Daily [Height and Weight] [RC] DAILY 04/08/19 21:00 Simvastatin [Zocor] 20 mg PO BEDTIME 04/08/19 Lunch Heart Healthy Diet [DIET] 04/09/19 05:11 BASIC METABOLIC PANEL,BMP [CHEM] AM CBC WITH AUTO DIFF [HEME] AM 04/09/19 06:00 cefTRIAXone [Rocephin] 1 gm Sodium Chloride 0.9% [Normal Saline] 50 ml IV Q24H - Plan Plan:: The patient is an 89-year-old gentleman who was admitted secondary to predominantly hypoxia. He does have CHF and is currently pending the results of the 2-D echocardiogram. The patient also has COPD and has continued to smoke up until presentation. The patient will be continued on his current antibiotics as well as Solu-Medrol for now. I've ordered repeat laboratory studies. The patient will be continued on DVT prophylaxis with the use of heparin. His diet will be as tolerated. The patient should be appropriate for discharge in 1-2 days. Repeat X-rays been ordered.
[2019-04-09] MEDS: cefTRIAXone 1 GM in Sodium Chloride 0.9% 50 ML IV SCH (05:50)
[2019-04-09 07:03] LABS: CARBON DIOXIDE,CO2 21.5 mmol/L (21.0-32.0); POTASSIUM,K 4.2 mmol/L (3.5-5.1)
[2019-04-09] MEDS: Metoprolol Succinate 25 MG Tab.ER PO SCH (08:32)
[2019-04-09] MEDS: Clopidogrel 75 MG Tab PO SCH (08:33)
[2019-04-09] MEDS: Aspirin 81 MG Tab.Chew PO SCH (08:33)
[2019-04-09] MEDS: amLODIPine 5 MG Tab PO SCH (08:33)
[2019-04-09] MEDS: Furosemide 20 MG/2 ML VIAL IVPUSH SCH ×2 (08:34→14:11)
[2019-04-09] MEDS: Simvastatin 20 MG Tab PO SCH (20:19)
[2019-04-09] MEDS ORDERED: Haloperidol Lactate 5 MG/ML SDV IM ONE (22:26)
[2019-04-09] MEDS: Albuterol/Ipratropium 3.0-0.5 MG/3 ML Neb Soln NEB PRN (22:43)
[2019-04-10] MEDS: Albuterol/Ipratropium 3.0-0.5 MG/3 ML Neb Soln NEB SCH ×5 (00:53→23:03)
[2019-04-10] MEDS: methylPREDNISolone Sodium Succinate 125 MG/2 ML SDV IV SCH ×3 (00:53→16:49)
[2019-04-10] MEDS: Heparin Sodium 5,000 Units/ML Vial SUBCUT SCH ×3 (00:53→16:48)
[2019-04-10] MEDS ORDERED: Haloperidol Lactate 5 MG/ML SDV IM ONE ×2 (01:54→09:36)
[2019-04-10] MEDS: cefTRIAXone 1 GM in Sodium Chloride 0.9% 50 ML IV SCH (05:06)
[2019-04-10] MEDS ORDERED: Furosemide 20 MG/2 ML VIAL IVPUSH ONE (05:30)
[2019-04-10 06:32] LABS: CARBON DIOXIDE,CO2 22.8 mmol/L (21.0-32.0); POTASSIUM,K 4.7 mmol/L (3.5-5.1)
[2019-04-10] MEDS: Furosemide 20 MG/2 ML VIAL IVPUSH SCH ×2 (08:29→13:01)
[2019-04-10] MEDS: Clopidogrel 75 MG Tab PO SCH (08:30)
[2019-04-10] MEDS: Aspirin 81 MG Tab.Chew PO SCH (08:30)
[2019-04-10] MEDS: amLODIPine 5 MG Tab PO SCH (08:30)
[2019-04-10] MEDS: Metoprolol Succinate 25 MG Tab.ER PO SCH (08:31)
--- NOTE | 2019-04-10 11:16 | CR ---
INDICATION: Pneumonia portable chest. COMPARISON: Chest x-ray 04/08/2019. Findings: Stable enlarged cardiac silhouette. Diffuse interstitial opacities without significant change which could represent infection or pulmonary edema. Ill-defined opacity in the left lateral lung is not seen. Right mid lung probable scarring. No pneumothorax. Hazy opacity in left lower lobe could represent a small effusion or infiltrate. Dictated by Vero Foote MD @ Apr 10 2019 11:05AM Signed by Dr. Vero Foote @ Apr 10 2019 11:15AM
[2019-04-10] MEDS: Nicotine 14 MG/24 Hr Patch TRDERM SCH (12:56)
--- NOTE | 2019-04-10 14:26 | PCM.PN ---
- General Info Date of Service: 04/10/19 Admission Dx/Problem (Free Text): Admission Diagnosis/Problem Admission Diagnosis/Problem Hypoxia, pneumonia, COPD exacerbation Subjective Update: The patient is an 89-year-old gentleman who had been admitted to hospitalization for pneumonia. The patient's behavior is been somewhat problematic and anxious requiring Haldol. The patient has been having hallucinations where he has been wanting to go out and make sure grasses cutdown as well as watermelons in her room. Functional Status: Reports: Pain Controlled - Review of Systems General: Reports: No Symptoms HEENT: Reports: No Symptoms Pulmonary: Reports: Shortness of Breath, Cough Cardiovascular: Reports: No Symptoms Gastrointestinal: Reports: No Symptoms Genitourinary: Reports: No Symptoms Musculoskeletal: Reports: No Symptoms Skin: Reports: No Symptoms Neurological: Reports: Confusion Psychiatric: Reports: No Symptoms - Patient Data Vitals - Most Recent: Last Vital Signs Temp 36.2 C 04/10/19 12:00 Pulse 86 04/10/19 12:00 Resp 20 04/10/19 12:00 BP 113/52 L 04/10/19 12:00 Pulse Ox 93 L 04/10/19 12:00 Weight - Most Recent: 68.294 kg I&O - Last 24 Hours: Intake & Output 04/09/19 04/10/19 04/10/19 22:59 06:59 14:59 Intake Total 990 1300 Output Total 300 950 Balance 690 350 Lab Results Last 24 Hours: Laboratory Results - last 24 hr 04/10/19 04/10/19 Range/Units 05:59 05:59 WBC 18.71 H (4.0-11.0) K/uL RBC 3.17 L (4.50-5.90) M/uL Hgb 9.8 L (13.0-17.0) g/dL Hct 28.7 L (38.0-50.0) % MCV 90.5 (80.0-98.0) fL MCH 30.9 (27.0-32.0) pg MCHC 34.1 (31.0-37.0) g/dL RDW Std Deviation 45.8 (28.0-62.0) fl RDW Coeff of Dalila 14 (11.0-15.0) % Plt Count 253 (150-400) K/uL MPV 9.50 (7.40-12.00) fL Neut % (Auto) 92.2 H (48.0-80.0) % Lymph % (Auto) 3.2 L (16.0-40.0) % [place] % (Auto) 4.6 (0.0-15.0) % Eos % (Auto) 0.0 (0.0-7.0) % Baso % (Auto) 0.0 (0.0-1.5) % Neut # (Auto) 17.2 H (1.4-5.7) K/uL Lymph # (Auto) 0.6 (0.6-2.4) K/uL [place] # (Auto) 0.9 H (0.0-0.8) K/uL Eos # (Auto) 0.0 (0.0-0.7) K/uL Baso # (Auto) 0.0 (0.0-0.1) K/uL Nucleated RBC % 0.0 /100WBC Nucleated RBCs # 0 K/uL Sodium 126 L (136-148) mmol/L Potassium 4.7 (3.5-5.1) mmol/L Chloride 92 L (98-107) mmol/L Carbon Dioxide 22.8 (21.0-32.0) mmol/L BUN 44 H (7.0-18.0) mg/dL Creatinine 1.9 H (0.8-1.3) mg/dL Est Cr Clr Drug Dosing 25.46 mL/min Estimated GFR (MDRD) 33.5 ml/min Glucose 147 H (74-106) mg/dL Calcium 8.9 (8.5-10.1) mg/dL Med Orders - Current: Current Medications Acetaminophen (Tylenol) 650 mg PO Q4H PRN PRN Reason: Pain (Mild 1-3)/fever Albuterol/Ipratropium (Duoneb 3.0-0.5 Mg/3 Ml) 3 ml NEB Q4HRRT PRN PRN Reason: Shortness Of Breath/wheezing Last Admin: 04/09/19 22:43 Dose: 3 ml Albuterol/Ipratropium (Duoneb 3.0-0.5 Mg/3 Ml) 3 ml NEB Q6HRRT NETO Last Admin: 04/10/19 11:08 Dose: 3 ml Amlodipine Besylate (Norvasc) 5 mg PO DAILY [facility] Last Admin: 04/10/19 08:30 Dose: 5 mg Aspirin (Aspirin) 81 mg PO DAILY [facility] Last Admin: 04/10/19 08:30 Dose: 81 mg Clopidogrel Bisulfate (Plavix) 75 mg PO DAILY [facility] Last Admin: 04/10/19 08:30 Dose: 75 mg Docusate Sodium (Colace) 100 mg PO BID PRN PRN Reason: Constipation Famotidine (Pepcid) 20 mg PO DAILY PRN PRN Reason: Heartburn Furosemide (Lasix) 20 mg IVPUSH BIDDIURETIC [facility] Last Admin: 04/10/19 13:01 Dose: 20 mg Heparin Sodium (Porcine) (Heparin Sodium) 5,000 units SUBCUT Q8H [facility] Last Admin: 04/10/19 08:32 Dose: 5,000 units Ceftriaxone Sodium 1 gm/ (Sodium Chloride) 50 mls @ 100 mls/hr IV Q24H [facility] Last Admin: 04/10/19 05:06 Dose: 100 mls/hr Methylprednisolone Sodium Succinate (Solu-Medrol) 60 mg IV Q8H [facility] Last Admin: 04/10/19 08:30 Dose: 60 mg Metoprolol Succinate (Toprol Xl) 25 mg PO DAILY [facility] Last Admin: 04/10/19 08:31 Dose: 25 mg Nicotine (Habitrol) 14 mg TRDERM DAILY [facility] Last Admin: 04/10/19 12:56 Dose: 14 mg Oxycodone HCl (Oxycodone) 5 mg PO Q4H PRN PRN Reason: Pain (moderate 4-6) Last Admin: 04/09/19 20:19 Dose: 5 mg Simvastatin (Zocor) 20 mg PO BEDTIME [facility] Last Admin: 04/09/19 20:19 Dose: 20 mg Sodium Chloride (Saline Flush) 10 ml FLUSH ASDIRECTED PRN PRN Reason: Keep Vein Open Sodium Chloride (Saline Flush) 2.5 ml FLUSH ASDIRECTED PRN PRN Reason: Keep Vein Open Discontinued Medications Albuterol/Ipratropium (Duoneb 3.0-0.5 Mg/3 Ml) 3 ml NEB ONETIME ONE Stop: 04/08/19 05:32 Last Admin: 04/08/19 05:31 Dose: 3 ml Furosemide (Lasix) 20 mg IVPUSH NOW ONE Stop: 04/08/19 06:24 Last Admin: 04/08/19 06:29 Dose: 20 mg Furosemide (Lasix) 20 mg IVPUSH BIDDIURETIC NETO Last Admin: 04/08/19 10:08 Dose: Not Given Furosemide (Lasix) 20 mg IVPUSH NOW ONE Stop: 04/10/19 05:31 Last Admin: 04/10/19 05:34 Dose: 20 mg Haloperidol Lactate (Haldol) 5 mg IM ONETIME ONE Stop: 04/08/19 20:59 Last Admin: 04/08/19 21:09 Dose: 5 mg Haloperidol Lactate (Haldol) 5 mg IM ONETIME ONE Stop: 04/09/19 22:27 Last Admin: 04/09/19 22:42 Dose: 5 mg Haloperidol Lactate (Haldol) 5 mg IM ONETIME ONE Stop: 04/10/19 01:55 Last Admin: 04/10/19 02:00 Dose: 5 mg Haloperidol Lactate (Haldol) 5 mg IM ONETIME ONE Stop: 04/10/19 09:37 Last Admin: 04/10/19 09:47 Dose: 5 mg Sodium Chloride (Normal Saline) 1,000 mls @ 125 mls/hr IV STAT NETO Last Admin: 04/08/19 05:52 Dose: 125 mls/hr Ceftriaxone Sodium/Dextrose 1 (gm/ Premix) 50 mls @ 100 mls/hr IV ONETIME ONE Stop: 04/08/19 06:51 Last Admin: 04/08/19 06:32 Dose: 100 mls/hr Azithromycin 500 mg/ Sodium (Chloride) 500 mls @ 250 mls/hr IV ONETIME ONE Stop: 04/08/19 08:24 Last Admin: 04/08/19 11:18 Dose: Not Given Azithromycin 500 mg/ Sodium (Chloride) 250 mls @ 250 mls/hr IV ONETIME ONE Stop: 04/08/19 07:24 Last Admin: 04/08/19 08:20 Dose: 250 mls/hr Lorazepam (Ativan) 1 mg PO ONETIME ONE Stop: 04/08/19 21:01 Last Admin: 04/08/19 20:19 Dose: 1 mg Methylprednisolone Sodium Succinate (Solu-Medrol) 125 mg IVPUSH ONETIME ONE Stop: 04/08/19 05:32 Last Admin: 04/08/19 05:36 Dose: 125 mg - Exam Quality Assessment: Supplemental Oxygen General: Alert, Cooperative. No: Oriented HEENT: Pupils Equal, Pupils Reactive, EOMI. No: Mucous Membr. Moist/[place] (Dry) Neck: Supple, Other (Soft cervical collar due to cervical fracture) Lungs: Decreased Breath Sounds, Crackles, Rales. No: Normal Respiratory Effort Cardiovascular: Regular Rate, Regular Rhythm GI/Abdominal Exam: Normal Bowel Sounds, Soft, No Distention Back Exam: Normal Inspection (Age appropriate), Full Range of Motion Extremities: Normal Inspection, No Pedal Edema Skin: Warm, Dry, Intact Neurological: Other (Confusion, agitation) Psy/Mental Status: Alert, Normal Affect, Normal Mood - Problem List & Annotations (1) Altered mental status SNOMED Code(s): 208478982 Code(s): R41.82 - ALTERED MENTAL STATUS, UNSPECIFIED Status: Acute Priority: High Current Visit: Yes Qualifiers: Altered mental status type: delirium Qualified Code(s): R41.0 - Disorientation, unspecified (2) Acute and chronic respiratory failure ([id number]) SNOMED Code(s): 55072091 Code(s): J96.20 - ACUTE AND CHR RESP FAILURE, UNSP W HYPOXIA OR HYPERCAPNIA Status: Acute Priority: High Current Visit: Yes Qualifiers: Respiratory failure complication: hypoxia Qualified Code(s): J96.21 - Acute and chronic respiratory failure with hypoxia (3) CHF (congestive heart failure) SNOMED Code(s): 10549371 Code(s): I50.9 - HEART FAILURE, UNSPECIFIED Status: Acute Current Visit: Yes Qualifiers: Heart failure type: unspecified Heart failure chronicity: unspecified Qualified Code(s): I50.9 - Heart failure, unspecified (4) Hypoxia SNOMED Code(s): 406221081 Code(s): R09.02 - HYPOXEMIA Status: Acute Priority: High Current Visit : Yes (5) C2 cervical fracture SNOMED Code(s): 715515554 Code(s): S12.100A - UNSP DISP FX OF SECOND CERVICAL VERTEBRA, INIT FOR CLOS FX Status: Acute Priority: High Current Visit: No Qualifiers: Encounter type: subsequent encounter Fracture type: closed Fracture morphology: unspecified fracture morphology Fracture alignment: nondisplaced Fracture healing: with routine healing Qualified Code(s): S12.101D - Unspecified nondisplaced fracture of second cervical vertebra, subsequent encounter for fracture with routine healing (6) Smoker SNOMED Code(s): 91069405 Code(s): F17.200 - NICOTINE DEPENDENCE, UNSPECIFIED, UNCOMPLICATED Status: Chronic Priority: High Current Visit: Yes (7) COPD exacerbation SNOMED Code(s): 825295508 Code(s): J44.1 - CHRONIC OBSTRUCTIVE PULMONARY DISEASE W (ACUTE) EXACERBATION Status: Acute Priority: High Current Visit: Yes (8) Hyponatremia SNOMED Code(s): 02727058 Code(s): E87.1 - HYPO-OSMOLALITY AND HYPONATREMIA Status: Acute Priority : High Current Visit: No - Problem List Review Problem List Initiated/Reviewed/Updated: Yes - My Orders Last 24 Hours: My Active Orders 04/10/19 12:45 Nicotine [Habitrol] 14 mg TRDERM DAILY - Plan Plan:: The patient is an 89-year-old gentleman was admitted secondary to hypoxia. The patient appears to be having concerns with sundowning which is requiring sedation. His chest x-ray today has shown no improvement. The patient will be continued on his current antibiotics and Solu-Medrol. I've ordered repeat laboratory studies for the morning. The patient should be appropriate for discharge in 1-2 days.
[2019-04-10] MEDS: Simvastatin 20 MG Tab PO SCH (20:46)
[2019-04-11] MEDS: Heparin Sodium 5,000 Units/ML Vial SUBCUT SCH ×4 (01:30→23:59)
[2019-04-11] MEDS: methylPREDNISolone Sodium Succinate 125 MG/2 ML SDV IV SCH ×3 (01:30→20:14)
[2019-04-11] MEDS: Albuterol/Ipratropium 3.0-0.5 MG/3 ML Neb Soln NEB SCH ×4 (05:48→23:57)
[2019-04-11] MEDS: cefTRIAXone 1 GM in Sodium Chloride 0.9% 50 ML IV SCH (06:04)
[2019-04-11 06:45] LABS: CARBON DIOXIDE,CO2 23.1 mmol/L (21.0-32.0); POTASSIUM,K 3.8 mmol/L (3.5-5.1)
--- NOTE | 2019-04-11 08:31 | PCM.PN ---
<Clarissa Read M - Last Filed: 04/11/19 09:20> - General Info Date of Service: 04/11/19 Admission Dx/Problem (Free Text): Admission Diagnosis/Problem Admission Diagnosis/Problem Acute on chronic hypoxic respiratory failure, pneumonia, COPD exacerbation Subjective Update: Reports feeling better today. No complaints of pain. Reports continued productive cough. No SOB. NO chest pain. Bren, girlfriend, reports it would be best for him to be placed for some rehabilitation because he would be at home unsafe and attempt to be using tractors and things at home. Functional Status: Reports: Pain Controlled, Tolerating Diet, Ambulating, Urinating - Review of Systems General: Reports: No Symptoms. Denies: Weakness, Fatigue HEENT: Reports: No Symptoms. Denies: Headaches, Sore Throat, Visual Changes Pulmonary: Reports: Cough, Sputum, Wheezing. Denies: Shortness of Breath Cardiovascular: Reports: No Symptoms Gastrointestinal: Reports: No Symptoms. Denies: Abdominal Pain, Nausea, Vomiting Genitourinary: Reports: No Symptoms. Denies: Dysuria, Frequency, Burning Musculoskeletal: Reports: No Symptoms. Denies: Neck Pain Skin: Reports: No Symptoms Neurological: Reports: No Symptoms Psychiatric: Reports: No Symptoms - Patient Data Vitals - Most Recent: Last Vital Signs Temp 97.9 F 04/11/19 07:30 Pulse 96 04/11/19 07:30 Resp 16 04/11/19 07:30 BP 114/58 L 04/11/19 07:30 Pulse Ox 96 04/11/19 07:30 Weight - Most Recent: 66.043 kg I&O - Last 24 Hours: Intake & Output 04/10/19 04/11/19 04/11/19 22:59 06:59 14:59 Intake Total 900 290 Output Total 700 1050 Balance 200 -760 Lab Results Last 24 Hours: Laboratory Results - last 24 hr 04/11/19 04/11/19 Range/Units 06:11 06:11 WBC 8.53 (4.0-11.0) K/uL RBC 3.05 L (4.50-5.90) M/uL Hgb 9.5 L (13.0-17.0) g/dL Hct 27.3 L (38.0-50.0) % MCV 89.5 (80.0-98.0) fL MCH 31.1 (27.0-32.0) pg MCHC 34.8 (31.0-37.0) g/dL RDW Std Deviation 44.9 (28.0-62.0) fl RDW Coeff of Dalila 14 (11.0-15.0) % Plt Count 206 (150-400) K/uL MPV 9.30 (7.40-12.00) fL Neut % (Auto) 89.1 H (48.0-80.0) % Lymph % (Auto) 5.3 L (16.0-40.0) % Nance % (Auto) 5.6 (0.0-15.0) % Eos % (Auto) 0.0 (0.0-7.0) % Baso % (Auto) 0.0 (0.0-1.5) % Neut # (Auto) 7.6 H (1.4-5.7) K/uL Lymph # (Auto) 0.5 L (0.6-2.4) K/uL Nance # (Auto) 0.5 (0.0-0.8) K/uL Eos # (Auto) 0.0 (0.0-0.7) K/uL Baso # (Auto) 0.0 (0.0-0.1) K/uL Nucleated RBC % 0.0 /100WBC Nucleated RBCs # 0 K/uL Sodium 128 L (136-148) mmol/L Potassium 3.8 (3.5-5.1) mmol/L Chloride 93 L (98-107) mmol/L Carbon Dioxide 23.1 (21.0-32.0) mmol/L BUN 49 H (7.0-18.0) mg/dL Creatinine 1.6 H (0.8-1.3) mg/dL Est Cr Clr Drug Dosing 29.24 mL/min Estimated GFR (MDRD) 40.9 ml/min Glucose 129 H (74-106) mg/dL Calcium 8.6 (8.5-10.1) mg/dL Med Orders - Current: Current Medications Acetaminophen (Tylenol) 650 mg PO Q4H PRN PRN Reason: Pain (Mild 1-3)/fever Albuterol/Ipratropium (Duoneb 3.0-0.5 Mg/3 Ml) 3 ml NEB Q4HRRT PRN PRN Reason: Shortness Of Breath/wheezing Last Admin: 04/09/19 22:43 Dose: 3 ml Albuterol/Ipratropium (Duoneb 3.0-0.5 Mg/3 Ml) 3 ml NEB Q6HRRT [facility] Last Admin: 04/11/19 05:48 Dose: 3 ml Amlodipine Besylate (Norvasc) 5 mg PO DAILY [facility] Last Admin: 04/10/19 08:30 Dose: 5 mg Aspirin (Aspirin) 81 mg PO DAILY [facility] Last Admin: 04/10/19 08:30 Dose: 81 mg Clopidogrel Bisulfate (Plavix) 75 mg PO DAILY [facility] Last Admin: 04/10/19 08:30 Dose: 75 mg Docusate Sodium (Colace) 100 mg PO BID PRN PRN Reason: Constipation Famotidine (Pepcid) 20 mg PO DAILY PRN PRN Reason: Heartburn Furosemide (Lasix) 20 mg IVPUSH BIDDIURETIC [facility] Last Admin: 04/10/19 13:01 Dose: 20 mg Heparin Sodium (Porcine) (Heparin Sodium) 5,000 units SUBCUT Q8H [facility] Last Admin: 04/11/19 01:30 Dose: 5,000 units Ceftriaxone Sodium 1 gm/ (Sodium Chloride) 50 mls @ 100 mls/hr IV Q24H [facility] Last Admin: 04/11/19 06:04 Dose: 100 mls/hr Methylprednisolone Sodium Succinate (Solu-Medrol) 60 mg IV Q8H [facility] Last Admin: 04/11/19 01:30 Dose: 60 mg Metoprolol Succinate (Toprol Xl) 25 mg PO DAILY [facility] Last Admin: 04/10/19 08:31 Dose: 25 mg Nicotine (Habitrol) 14 mg TRDERM DAILY [facility] Last Admin: 04/10/19 12:56 Dose: 14 mg Oxycodone HCl (Oxycodone) 5 mg PO Q4H PRN PRN Reason: Pain (moderate 4-6) Last Admin: 04/09/19 20:19 Dose: 5 mg Simvastatin (Zocor) 20 mg PO BEDTIME [facility] Last Admin: 04/10/19 20:46 Dose: 20 mg Sodium Chloride (Saline Flush) 10 ml FLUSH ASDIRECTED PRN PRN Reason: Keep Vein Open Sodium Chloride (Saline Flush) 2.5 ml FLUSH ASDIRECTED PRN PRN Reason: Keep Vein Open Discontinued Medications Albuterol/Ipratropium (Duoneb 3.0-0.5 Mg/3 Ml) 3 ml NEB ONETIME ONE Stop: 04/08/19 05:32 Last Admin: 04/08/19 05:31 Dose: 3 ml Furosemide (Lasix) 20 mg IVPUSH NOW ONE Stop: 04/08/19 06:24 Last Admin: 04/08/19 06:29 Dose: 20 mg Furosemide (Lasix) 20 mg IVPUSH BIDDIURETIC [facility] Last Admin: 04/08/19 10:08 Dose: Not Given Furosemide (Lasix) 20 mg IVPUSH NOW ONE Stop: 04/10/19 05:31 Last Admin: 04/10/19 05:34 Dose: 20 mg Haloperidol Lactate (Haldol) 5 mg IM ONETIME ONE Stop: 04/08/19 20:59 Last Admin: 04/08/19 21:09 Dose: 5 mg Haloperidol Lactate (Haldol) 5 mg IM ONETIME ONE Stop: 04/09/19 22:27 Last Admin: 04/09/19 22:42 Dose: 5 mg Haloperidol Lactate (Haldol) 5 mg IM ONETIME ONE Stop: 04/10/19 01:55 Last Admin: 04/10/19 02:00 Dose: 5 mg Haloperidol Lactate (Haldol) 5 mg IM ONETIME ONE Stop: 04/10/19 09:37 Last Admin: 04/10/19 09:47 Dose: 5 mg Sodium Chloride (Normal Saline) 1,000 mls @ 125 mls/hr IV STAT [facility] Last Admin: 04/08/19 05:52 Dose: 125 mls/hr Ceftriaxone Sodium/Dextrose 1 (gm/ Premix) 50 mls @ 100 mls/hr IV ONETIME ONE Stop: 04/08/19 06:51 Last Admin: 04/08/19 06:32 Dose: 100 mls/hr Azithromycin 500 mg/ Sodium (Chloride) 500 mls @ 250 mls/hr IV ONETIME ONE Stop: 04/08/19 08:24 Last Admin: 04/08/19 11:18 Dose: Not Given Azithromycin 500 mg/ Sodium (Chloride) 250 mls @ 250 mls/hr IV ONETIME ONE Stop: 04/08/19 07:24 Last Admin: 04/08/19 08:20 Dose: 250 mls/hr Lorazepam (Ativan) 1 mg PO ONETIME ONE Stop: 04/08/19 21:01 Last Admin: 04/08/19 20:19 Dose: 1 mg Methylprednisolone Sodium Succinate (Solu-Medrol) 125 mg IVPUSH ONETIME ONE Stop: 04/08/19 05:32 Last Admin: 04/08/19 05:36 Dose: 125 mg - Exam Quality Assessment: Supplemental Oxygen, DVT Prophylaxis General: Alert. No: Oriented (disoriented to time, but easily reoriented. Becomes confused and hollering out when significant other leaves the room. ) Neck: Supple, Other (soft C collar in place) Lungs: Clear to Auscultation, Normal Respiratory Effort Cardiovascular: Regular Rate, Regular Rhythm GI/Abdominal Exam: Normal Bowel Sounds, Soft, Non-Tender Back Exam: Normal Inspection, Full Range of Motion Extremities: Normal Inspection, Normal Range of Motion, Non-Tender, No Pedal Edema Neurological: No New Focal Deficit Psy/Mental Status: Alert, Normal Affect, Normal Mood - Problem List & Annotations (1) Acute and chronic respiratory failure ([id number]) SNOMED Code(s): 97078994 Code(s): J96.20 - ACUTE AND CHR RESP FAILURE, UNSP W HYPOXIA OR HYPERCAPNIA Status: Acute Priority: High Current Visit: Yes Qualifiers: Respiratory failure complication: hypoxia Qualified Code(s): J96.21 - Acute and chronic respiratory failure with hypoxia (2) Altered mental status SNOMED Code(s): 843782994 Code(s): R41.82 - ALTERED MENTAL STATUS, UNSPECIFIED Status: Acute Priority: High Current Visit: Yes Qualifiers: Altered mental status type: delirium Qualified Code(s): R41.0 - Disorientation, unspecified (3) CHF (congestive heart failure) SNOMED Code(s): 45189232 Code(s): I50.9 - HEART FAILURE, UNSPECIFIED Status: Acute Current Visit: Yes Qualifiers: Heart failure type: unspecified Heart failure chronicity: unspecified Qualified Code(s): I50.9 - Heart failure, unspecified (4) COPD exacerbation SNOMED Code(s): 445148461 Code(s): J44.1 - CHRONIC OBSTRUCTIVE PULMONARY DISEASE W (ACUTE) EXACERBATION Status: Acute Priority: High Current Visit: Yes (5) Chronic hyponatremia SNOMED Code(s): 44650377 Code(s): E87.1 - HYPO-OSMOLALITY AND HYPONATREMIA Status: Acute Current Visit: Yes (6) Hypoxia SNOMED Code(s): 547173281 Code(s): R09.02 - HYPOXEMIA Status: Acute Priority: High Current Visit : Yes (7) Infiltrate of lung present on chest x-ray SNOMED Code(s): 732380515, 070503784 Code(s): R91.8 - OTHER NONSPECIFIC ABNORMAL FINDING OF LUNG FIELD Status: Acute Current Visit: Yes (8) Smoker SNOMED Code(s): 82685642 Code(s): F17.200 - NICOTINE DEPENDENCE, UNSPECIFIED, UNCOMPLICATED Status: Chronic Priority: High Current Visit: Yes (9) C2 cervical fracture SNOMED Code(s): 723162378 Code(s): S12.100A - UNSP DISP FX OF SECOND CERVICAL VERTEBRA, INIT FOR CLOS FX Status: Acute Priority: High Current Visit: No Qualifiers: Encounter type: subsequent encounter Fracture type: closed Fracture morphology: unspecified fracture morphology Fracture alignment: nondisplaced Fracture healing: with routine healing Qualified Code(s): S12.101D - Unspecified nondisplaced fracture of second cervical vertebra, subsequent encounter for fracture with routine healing - Problem List Review Problem List Initiated/Reviewed/Updated: Yes - Plan Plan:: This 89 year old male admitted with acute on chronic hypoxic respiratory failure , CHF exacerbation, and CAP 1. Acute on chronic hypoxic respiratory failure: COPD exacerbation and CAP. Continue Duonebs, oxygen therapy and antibiotics. Improving, has been weaned to 2l NC. 2. COPD exacerbation: Continue Solumedrol, will decrease to BID. Wheezing improved. Continue to wean oxygen as possible. Duonebs. 3. CHF exacerbation: Edema noted on CXR. Continue Lasix. Strict I/O daily weight and Low Na diet. 4. CAP: Continue Rocephin. Add Doxycycline for additional coverage for CAP. Cultures negative. Monitor. 5.AMS: Likely has mild cognitive decline with ing. Noted to be more confused. Re orientation frequently. Keep day and nights straight, shades open and lights on during the day. 6. CAD: Stable, continue Plavix, ASA and statin. Continue Metoprolol and Norvasc. BP stable. VTE prophylaxis: Heparin. Dispo: Possible placement in SNF for rehabilitation. marketing services vice president notified and pending paperwork. <Erik Valadez M - Last Filed: 04/11/19 13:08> - General Info Admission Dx/Problem (Free Text): I have seen and examined the patient independently of Clarissa Read CNP. I have reviewed and agree with the plan of care as outlined by her and agree with the plan as outlined by her. I have discussed the case with the her. Please see orders. - Patient Data Vitals - Most Recent: Last Vital Signs Temp 36.6 C 04/11/19 07:30 Pulse 72 04/11/19 08:40 Resp 16 04/11/19 07:30 BP 114/58 L 04/11/19 08:40 Pulse Ox 96 04/11/19 07:30 I&O - Last 24 Hours: Intake & Output 04/10/19 04/11/19 04/11/19 22:59 06:59 14:59 Intake Total 900 290 360 Output Total 700 1050 Balance 200 -760 360 Lab Results Last 24 Hours: Laboratory Results - last 24 hr 04/11/19 04/11/19 Range/Units 06:11 06:11 WBC 8.53 (4.0-11.0) K/uL RBC 3.05 L (4.50-5.90) M/uL Hgb 9.5 L (13.0-17.0) g/dL Hct 27.3 L (38.0-50.0) % MCV 89.5 (80.0-98.0) fL MCH 31.1 (27.0-32.0) pg MCHC 34.8 (31.0-37.0) g/dL RDW Std Deviation 44.9 (28.0-62.0) fl RDW Coeff of Dalila 14 (11.0-15.0) % Plt Count 206 (150-400) K/uL MPV 9.30 (7.40-12.00) fL Neut % (Auto) 89.1 H (48.0-80.0) % Lymph % (Auto) 5.3 L (16.0-40.0) % Nance % (Auto) 5.6 (0.0-15.0) % Eos % (Auto) 0.0 (0.0-7.0) % Baso % (Auto) 0.0 (0.0-1.5) % Neut # (Auto) 7.6 H (1.4-5.7) K/uL Lymph # (Auto) 0.5 L (0.6-2.4) K/uL Nance # (Auto) 0.5 (0.0-0.8) K/uL Eos # (Auto) 0.0 (0.0-0.7) K/uL Baso # (Auto) 0.0 (0.0-0.1) K/uL Nucleated RBC % 0.0 /100WBC Nucleated RBCs # 0 K/uL Sodium 128 L (136-148) mmol/L Potassium 3.8 (3.5-5.1) mmol/L Chloride 93 L (98-107) mmol/L Carbon Dioxide 23.1 (21.0-32.0) mmol/L BUN 49 H (7.0-18.0) mg/dL Creatinine 1.6 H (0.8-1.3) mg/dL Est Cr Clr Drug Dosing 29.24 mL/min Estimated GFR (MDRD) 40.9 ml/min Glucose 129 H (74-106) mg/dL Calcium 8.6 (8.5-10.1) mg/dL Med Orders - Current: Current Medications Acetaminophen (Tylenol) 650 mg PO Q4H PRN PRN Reason: Pain (Mild 1-3)/fever Albuterol/Ipratropium (Duoneb 3.0-0.5 Mg/3 Ml) 3 ml NEB Q4HRRT PRN PRN Reason: Shortness Of Breath/wheezing Last Admin: 04/09/19 22:43 Dose: 3 ml Albuterol/Ipratropium (Duoneb 3.0-0.5 Mg/3 Ml) 3 ml NEB Q6HRRT [facility] Last Admin: 04/11/19 11:18 Dose: 3 ml Amlodipine Besylate (Norvasc) 5 mg PO DAILY [facility] Last Admin: 04/11/19 08:40 Dose: 5 mg Aspirin (Aspirin) 81 mg PO DAILY [facility] Last Admin: 04/11/19 08:39 Dose: 81 mg Clopidogrel Bisulfate (Plavix) 75 mg PO DAILY [facility] Last Admin: 04/11/19 08:40 Dose: 75 mg Docusate Sodium (Colace) 100 mg PO BID PRN PRN Reason: Constipation Doxycycline Hyclate (Vibramycin) 100 mg PO BID [facility] Last Admin: 04/11/19 08:50 Dose: 100 mg Famotidine (Pepcid) 20 mg PO DAILY PRN PRN Reason: Heartburn Furosemide (Lasix) 20 mg IVPUSH BIDDIURETIC [facility] Last Admin: 04/11/19 08:36 Dose: 20 mg Heparin Sodium (Porcine) (Heparin Sodium) 5,000 units SUBCUT Q8H [facility] Last Admin: 04/11/19 08:44 Dose: 5,000 units Ceftriaxone Sodium 1 gm/ (Sodium Chloride) 50 mls @ 100 mls/hr IV Q24H [facility] Last Admin: 04/11/19 06:04 Dose: 100 mls/hr Methylprednisolone Sodium Succinate (Solu-Medrol) 60 mg IV Q12H [facility] Metoprolol Succinate (Toprol Xl) 25 mg PO DAILY [facility] Last Admin: 04/11/19 08:40 Dose: 25 mg Nicotine (Habitrol) 14 mg TRDERM DAILY [facility] Last Admin: 04/11/19 08:44 Dose: 14 mg Simvastatin (Zocor) 20 mg PO BEDTIME [facility] Last Admin: 04/10/19 20:46 Dose: 20 mg Sodium Chloride (Saline Flush) 10 ml FLUSH ASDIRECTED PRN PRN Reason: Keep Vein Open Sodium Chloride (Saline Flush) 2.5 ml FLUSH ASDIRECTED PRN PRN Reason: Keep Vein Open Discontinued Medications Albuterol/Ipratropium (Duoneb 3.0-0.5 Mg/3 Ml) 3 ml NEB ONETIME ONE Stop: 04/08/19 05:32 Last Admin: 04/08/19 05:31 Dose: 3 ml Furosemide (Lasix) 20 mg IVPUSH NOW ONE Stop: 04/08/19 06:24 Last Admin: 04/08/19 06:29 Dose: 20 mg Furosemide (Lasix) 20 mg IVPUSH BIDDIURETIC [facility] Last Admin: 04/08/19 10:08 Dose: Not Given Furosemide (Lasix) 20 mg IVPUSH NOW ONE Stop: 04/10/19 05:31 Last Admin: 04/10/19 05:34 Dose: 20 mg Haloperidol Lactate (Haldol) 5 mg IM ONETIME ONE Stop: 04/08/19 20:59 Last Admin: 04/08/19 21:09 Dose: 5 mg Haloperidol Lactate (Haldol) 5 mg IM ONETIME ONE Stop: 04/09/19 22:27 Last Admin: 04/09/19 22:42 Dose: 5 mg Haloperidol Lactate (Haldol) 5 mg IM ONETIME ONE Stop: 04/10/19 01:55 Last Admin: 04/10/19 02:00 Dose: 5 mg Haloperidol Lactate (Haldol) 5 mg IM ONETIME ONE Stop: 04/10/19 09:37 Last Admin: 04/10/19 09:47 Dose: 5 mg Sodium Chloride (Normal Saline) 1,000 mls @ 125 mls/hr IV STAT [facility] Last Admin: 04/08/19 05:52 Dose: 125 mls/hr Ceftriaxone Sodium/Dextrose 1 (gm/ Premix) 50 mls @ 100 mls/hr IV ONETIME ONE Stop: 04/08/19 06:51 Last Admin: 04/08/19 06:32 Dose: 100 mls/hr Azithromycin 500 mg/ Sodium (Chloride) 500 mls @ 250 mls/hr IV ONETIME ONE Stop: 04/08/19 08:24 Last Admin: 04/08/19 11:18 Dose: Not Given Azithromycin 500 mg/ Sodium (Chloride) 250 mls @ 250 mls/hr IV ONETIME ONE Stop: 04/08/19 07:24 Last Admin: 04/08/19 08:20 Dose: 250 mls/hr Lorazepam (Ativan) 1 mg PO ONETIME ONE Stop: 04/08/19 21:01 Last Admin: 04/08/19 20:19 Dose: 1 mg Methylprednisolone Sodium Succinate (Solu-Medrol) 125 mg IVPUSH ONETIME ONE Stop: 04/08/19 05:32 Last Admin: 04/08/19 05:36 Dose: 125 mg Methylprednisolone Sodium Succinate (Solu-Medrol) 60 mg IV Q8H [facility] Last Admin: 04/11/19 08:41 Dose: 60 mg Oxycodone HCl (Oxycodone) 5 mg PO Q4H PRN PRN Reason: Pain (moderate 4-6) Last Admin: 04/09/19 20:19 Dose: 5 mg - Problem List & Annotations (1) Altered mental status SNOMED Code(s): 561355105 Code(s): R41.82 - ALTERED MENTAL STATUS, UNSPECIFIED Status: Acute Priority: High Current Visit: Yes Qualifiers: Altered mental status type: delirium Qualified Code(s): R41.0 - Disorientation, unspecified (2) Acute and chronic respiratory failure ([id number]) SNOMED Code(s): 85984281 Code(s): J96.20 - ACUTE AND CHR RESP FAILURE, UNSP W HYPOXIA OR HYPERCAPNIA Status: Acute Priority: High Current Visit: Yes Qualifiers: Respiratory failure complication: hypoxia Qualified Code(s): J96.21 - Acute and chronic respiratory failure with hypoxia (3) CHF (congestive heart failure) SNOMED Code(s): 42053180 Code(s): I50.9 - HEART FAILURE, UNSPECIFIED Status: Acute Current Visit: Yes Qualifiers: Heart failure type: unspecified Heart failure chronicity: unspecified Qualified Code(s): I50.9 - Heart failure, unspecified (4) Hypoxia SNOMED Code(s): 635156529 Code(s): R09.02 - HYPOXEMIA Status: Acute Priority: High Current Visit : Yes (5) C2 cervical fracture SNOMED Code(s): 041024837 Code(s): S12.100A - UNSP DISP FX OF SECOND CERVICAL VERTEBRA, INIT FOR CLOS FX Status: Acute Priority: High Current Visit: No Qualifiers: Encounter type: subsequent encounter Fracture type: closed Fracture morphology: unspecified fracture morphology Fracture alignment: nondisplaced Fracture healing: with routine healing Qualified Code(s): S12.101D - Unspecified nondisplaced fracture of second cervical vertebra, subsequent encounter for fracture with routine healing (6) Smoker SNOMED Code(s): 75340438 Code(s): F17.200 - NICOTINE DEPENDENCE, UNSPECIFIED, UNCOMPLICATED Status: Chronic Priority: High Current Visit: Yes (7) COPD exacerbation SNOMED Code(s): 589098380 Code(s): J44.1 - CHRONIC OBSTRUCTIVE PULMONARY DISEASE W (ACUTE) EXACERBATION Status: Acute Priority: High Current Visit: Yes (8) Hyponatremia SNOMED Code(s): 94001447 Code(s): E87.1 - HYPO-OSMOLALITY AND HYPONATREMIA Status: Acute Priority : High Current Visit: No - My Orders Last 24 Hours: My Active Orders 04/10/19 12:45 Nicotine [Habitrol] 14 mg TRDERM DAILY
[2019-04-11] MEDS: Furosemide 20 MG/2 ML VIAL IVPUSH SCH ×2 (08:36→14:59)
[2019-04-11] MEDS: Aspirin 81 MG Tab.Chew PO SCH (08:39)
[2019-04-11] MEDS: Clopidogrel 75 MG Tab PO SCH (08:40)
[2019-04-11] MEDS: amLODIPine 5 MG Tab PO SCH (08:40)
[2019-04-11] MEDS: Metoprolol Succinate 25 MG Tab.ER PO SCH (08:40)
[2019-04-11] MEDS: Nicotine 14 MG/24 Hr Patch TRDERM SCH (08:44)
[2019-04-11] MEDS: Doxycycline 100 MG Cap PO SCH ×2 (08:50→20:14)
--- NOTE | 2019-04-11 17:52 | MR ---
EXAM DATE: 04/01/19 PATIENT'S AGE: 89 Patient: TAYLOR RODRÍGUEZ Facility: [facility] Site Site : [id number] Study: MRI-Spine Cervical [id number]/26/2019 11:55:28 AM Ordering Physician: MONICA BLANCAS Final Report: INDICATION: Cervical spine fracture. TECHNIQUE: Sagittal T2, sagittal STIR, and axial T2 noncontrast MR images were obtained through the cervical spine. COMPARISON: CT cervical spine 03/14/2019. FINDINGS: Artifact degrades image quality. Again demonstrated is a nondisplaced fracture of the left lateral mass of C2 ( series 201 and series 401, image 4; series 301, image 60). Mild associated vertebral body edema. No spondylolisthesis or acute ligamentous injury. Mildly exaggerated cervical lordosis. Vertebral heights are maintained. No cord signal abnormalities within limitations of artifact. C2-3: Moderately advanced right and moderate left facet arthropathy. No spinal canal or neural foraminal narrowing. C3-4: Shallow posterior disc bulge. Marginal endplate spurring. Advanced left and [id number] right facet arthropathy. No spinal canal narrowing. Mild-to -moderate left and mild right neural foraminal narrowing. C4-5: Posterior disc bulge and thickening of ligamentum flavum mild-to- moderately narrow the spinal canal. Moderately advanced right and moderate left facet arthropathy. Mild bilateral neural foraminal narrowing. C5-6: Thickening of ligamentum flavum. Bilateral uncovertebral joint arthropathy. Moderate right and [id number] left facet arthropathy. No spinal canal narrowing. Mild bilateral neural foraminal narrowing. C6-7: Mild bilateral facet arthropathy. No spinal canal or neural foraminal narrowing. C7-T1: Mild bilateral facet arthropathy. No spinal canal or neural foraminal narrowing. No spinal canal or neural foraminal narrowing in the visualized upper thoracic spine. IMPRESSION: 1. Motion artifact degrades image quality. Sagittal T1 sequence was not acquired. 2. Again demonstrated is a nondisplaced fracture of the left lateral mass of C2. Mild associated edema. 3. No spondylolisthesis or acute ligamentous injury. No cord signal abnormality within exam limitations. 4. Multilevel cervical spondylosis without high-grade spinal canal stenosis. Dictated by Meng Mejia MD @ Apr 08 2019 12:15PM Signed by: Meng Mejia MD @04/08/2019 12:48:31 PM (Electronic Signature) Report Signed by Proxy. BRAYDON
[2019-04-11] MEDS: Simvastatin 20 MG Tab PO SCH (20:14)
[2019-04-12] MEDS ORDERED: Haloperidol Lactate 5 MG/ML SDV IM ONE ×2 (01:08→02:24)
[2019-04-12] MEDS: cefTRIAXone 1 GM in Sodium Chloride 0.9% 50 ML IV SCH (05:28)
[2019-04-12] MEDS: Albuterol/Ipratropium 3.0-0.5 MG/3 ML Neb Soln NEB SCH ×4 (05:45→23:45)
[2019-04-12] MEDS ORDERED: Haloperidol 5 MG Tab PO PRN (09:11)
--- NOTE | 2019-04-12 09:16 | PCM.PN ---
<Clarissa Read M - Last Filed: 04/12/19 09:10> - General Info Date of Service: 04/12/19 Admission Dx/Problem (Free Text): COPD, CHF, Delirium Subjective Update: Reports feeling bad today. feels everyone is out to get him, all night "they were trying to kill me". No complaints of pain. Reports continued productive cough. No SOB. NO chest pain. Bren, girlfriend, educated on re orientation frequently, keeping blinds open, etc to help with delirium. - Review of Systems General: Reports: No Symptoms. Denies: Fever, Weakness Pulmonary: Reports: Cough, Sputum. Denies: Shortness of Breath Cardiovascular: Reports: No Symptoms. Denies: Chest Pain, Edema Gastrointestinal: Reports: No Symptoms. Denies: Abdominal Pain, Nausea, Vomiting Musculoskeletal: Reports: No Symptoms Skin: Reports: No Symptoms Neurological: Reports: No Symptoms Psychiatric: Reports: No Symptoms - Patient Data Vitals - Most Recent: Last Vital Signs Temp 97.8 F 04/12/19 08:00 Pulse 100 04/12/19 08:00 Resp 16 04/12/19 08:00 BP 128/81 04/12/19 08:00 Pulse Ox 96 04/12/19 08:00 Weight - Most Recent: 66.043 kg I&O - Last 24 Hours: Intake & Output 04/11/19 04/12/19 04/12/19 22:59 06:59 14:59 Intake Total 1000 500 Balance 1000 500 Med Orders - Current: Current Medications Acetaminophen (Tylenol) 650 mg PO Q4H PRN PRN Reason: Pain (Mild 1-3)/fever Albuterol/Ipratropium (Duoneb 3.0-0.5 Mg/3 Ml) 3 ml NEB Q4HRRT PRN PRN Reason: Shortness Of Breath/wheezing Last Admin: 04/09/19 22:43 Dose: 3 ml Albuterol/Ipratropium (Duoneb 3.0-0.5 Mg/3 Ml) 3 ml NEB Q6HRRT [facility] Last Admin: 04/12/19 05:45 Dose: Not Given Amlodipine Besylate (Norvasc) 5 mg PO DAILY [facility] Last Admin: 04/11/19 08:40 Dose: 5 mg Aspirin (Aspirin) 81 mg PO DAILY [facility] Last Admin: 04/11/19 08:39 Dose: 81 mg Clopidogrel Bisulfate (Plavix) 75 mg PO DAILY [facility] Last Admin: 04/11/19 08:40 Dose: 75 mg Docusate Sodium (Colace) 100 mg PO BID PRN PRN Reason: Constipation Doxycycline Hyclate (Vibramycin) 100 mg PO BID [facility] Last Admin: 04/11/19 20:14 Dose: 100 mg Famotidine (Pepcid) 20 mg PO DAILY PRN PRN Reason: Heartburn Furosemide (Lasix) 20 mg IVPUSH BIDDIURETIC [facility] Last Admin: 04/11/19 14:59 Dose: 20 mg Heparin Sodium (Porcine) (Heparin Sodium) 5,000 units SUBCUT Q8H [facility] Last Admin: 04/11/19 23:59 Dose: 5,000 units Ceftriaxone Sodium 1 gm/ (Sodium Chloride) 50 mls @ 100 mls/hr IV Q24H [facility] Last Admin: 04/12/19 05:28 Dose: 100 mls/hr Methylprednisolone Sodium Succinate (Solu-Medrol) 60 mg IV Q12H [facility] Last Admin: 04/11/19 20:14 Dose: 60 mg Metoprolol Succinate (Toprol Xl) 25 mg PO DAILY [facility] Last Admin: 04/11/19 08:40 Dose: 25 mg Nicotine (Habitrol) 14 mg TRDERM DAILY [facility] Last Admin: 04/11/19 08:44 Dose: 14 mg Simvastatin (Zocor) 20 mg PO BEDTIME [facility] Last Admin: 04/11/19 20:14 Dose: 20 mg Sodium Chloride (Saline Flush) 10 ml FLUSH ASDIRECTED PRN PRN Reason: Keep Vein Open Sodium Chloride (Saline Flush) 2.5 ml FLUSH ASDIRECTED PRN PRN Reason: Keep Vein Open Discontinued Medications Albuterol/Ipratropium (Duoneb 3.0-0.5 Mg/3 Ml) 3 ml NEB ONETIME ONE Stop: 04/08/19 05:32 Last Admin: 04/08/19 05:31 Dose: 3 ml Furosemide (Lasix) 20 mg IVPUSH NOW ONE Stop: 04/08/19 06:24 Last Admin: 04/08/19 06:29 Dose: 20 mg Furosemide (Lasix) 20 mg IVPUSH BIDDIURETIC [facility] Last Admin: 04/08/19 10:08 Dose: Not Given Furosemide (Lasix) 20 mg IVPUSH NOW ONE Stop: 04/10/19 05:31 Last Admin: 04/10/19 05:34 Dose: 20 mg Haloperidol Lactate (Haldol) 5 mg IM ONETIME ONE Stop: 04/08/19 20:59 Last Admin: 04/08/19 21:09 Dose: 5 mg Haloperidol Lactate (Haldol) 5 mg IM ONETIME ONE Stop: 04/09/19 22:27 Last Admin: 04/09/19 22:42 Dose: 5 mg Haloperidol Lactate (Haldol) 5 mg IM ONETIME ONE Stop: 04/10/19 01:55 Last Admin: 04/10/19 02:00 Dose: 5 mg Haloperidol Lactate (Haldol) 5 mg IM ONETIME ONE Stop: 04/10/19 09:37 Last Admin: 04/10/19 09:47 Dose: 5 mg Haloperidol Lactate (Haldol) 5 mg IM ONETIME ONE Stop: 04/12/19 01:09 Last Admin: 04/12/19 01:23 Dose: 5 mg Haloperidol Lactate (Haldol) 5 mg IM ONETIME ONE Stop: 04/12/19 02:25 Last Admin: 04/12/19 02:37 Dose: 5 mg Sodium Chloride (Normal Saline) 1,000 mls @ 125 mls/hr IV STAT NETO Last Admin: 04/08/19 05:52 Dose: 125 mls/hr Ceftriaxone Sodium/Dextrose 1 (gm/ Premix) 50 mls @ 100 mls/hr IV ONETIME ONE Stop: 04/08/19 06:51 Last Admin: 04/08/19 06:32 Dose: 100 mls/hr Azithromycin 500 mg/ Sodium (Chloride) 500 mls @ 250 mls/hr IV ONETIME ONE Stop: 04/08/19 08:24 Last Admin: 04/08/19 11:18 Dose: Not Given Azithromycin 500 mg/ Sodium (Chloride) 250 mls @ 250 mls/hr IV ONETIME ONE Stop: 04/08/19 07:24 Last Admin: 04/08/19 08:20 Dose: 250 mls/hr Lorazepam (Ativan) 1 mg PO ONETIME ONE Stop: 04/08/19 21:01 Last Admin: 04/08/19 20:19 Dose: 1 mg Methylprednisolone Sodium Succinate (Solu-Medrol) 125 mg IVPUSH ONETIME ONE Stop: 04/08/19 05:32 Last Admin: 04/08/19 05:36 Dose: 125 mg Methylprednisolone Sodium Succinate (Solu-Medrol) 60 mg IV Q8H [facility] Last Admin: 04/11/19 08:41 Dose: 60 mg Oxycodone HCl (Oxycodone) 5 mg PO Q4H PRN PRN Reason: Pain (moderate 4-6) Last Admin: 04/09/19 20:19 Dose: 5 mg - Exam General: Alert. No: Oriented, Cooperative (will not allow me to assess him. ) Back Exam: Normal Inspection, Full Range of Motion Extremities: Normal Inspection, Normal Range of Motion, No Pedal Edema Neurological: Other (acute delirium noted) Psy/Mental Status: Agitated - Problem List & Annotations (1) Acute and chronic respiratory failure ([id number]) SNOMED Code(s): 81906218 Code(s): J96.20 - ACUTE AND CHR RESP FAILURE, UNSP W HYPOXIA OR HYPERCAPNIA Status: Acute Priority: High Current Visit: Yes Qualifiers: Respiratory failure complication: hypoxia Qualified Code(s): J96.21 - Acute and chronic respiratory failure with hypoxia (2) Altered mental status SNOMED Code(s): 967409153 Code(s): R41.82 - ALTERED MENTAL STATUS, UNSPECIFIED Status: Acute Priority: High Current Visit: Yes Qualifiers: Altered mental status type: delirium Qualified Code(s): R41.0 - Disorientation, unspecified (3) CHF (congestive heart failure) SNOMED Code(s): 58932788 Code(s): I50.9 - HEART FAILURE, UNSPECIFIED Status: Acute Current Visit: Yes Qualifiers: Heart failure type: unspecified Heart failure chronicity: unspecified Qualified Code(s): I50.9 - Heart failure, unspecified (4) COPD exacerbation SNOMED Code(s): 157063692 Code(s): J44.1 - CHRONIC OBSTRUCTIVE PULMONARY DISEASE W (ACUTE) EXACERBATION Status: Acute Priority: High Current Visit: Yes (5) Chronic hyponatremia SNOMED Code(s): 44455786 Code(s): E87.1 - HYPO-OSMOLALITY AND HYPONATREMIA Status: Acute Current Visit: Yes (6) Hypoxia SNOMED Code(s): 043702366 Code(s): R09.02 - HYPOXEMIA Status: Acute Priority: High Current Visit : Yes (7) Infiltrate of lung present on chest x-ray SNOMED Code(s): 285419607, 737324136 Code(s): R91.8 - OTHER NONSPECIFIC ABNORMAL FINDING OF LUNG FIELD Status: Acute Current Visit: Yes (8) Smoker SNOMED Code(s): 06603262 Code(s): F17.200 - NICOTINE DEPENDENCE, UNSPECIFIED, UNCOMPLICATED Status: Chronic Priority: High Current Visit: Yes (9) C2 cervical fracture SNOMED Code(s): 224322683 Code(s): S12.100A - UNSP DISP FX OF SECOND CERVICAL VERTEBRA, INIT FOR CLOS FX Status: Acute Priority: High Current Visit: No Qualifiers: Encounter type: subsequent encounter Fracture type: closed Fracture morphology: unspecified fracture morphology Fracture alignment: nondisplaced Fracture healing: with routine healing Qualified Code(s): S12.101D - Unspecified nondisplaced fracture of second cervical vertebra, subsequent encounter for fracture with routine healing - Problem List Review Problem List Initiated/Reviewed/Updated: Yes - My Orders Last 24 Hours: My Active Orders 04/11/19 09:00 Doxycycline [Vibramycin] 100 mg PO BID 04/11/19 21:00 methylPREDNISolone Sod Succ [Solu-MEDROL] 60 mg IV Q12H 04/13/19 05:11 BASIC METABOLIC PANEL,BMP [CHEM] AM CBC WITH AUTO DIFF [HEME] AM 04/14/19 05:11 BASIC METABOLIC PANEL,BMP [CHEM] AM CBC WITH AUTO DIFF [HEME] AM - Plan Plan:: This 89 year old male admitted with acute on chronic hypoxic respiratory failure , CHF exacerbation, and CAP 1. Acute on chronic hypoxic respiratory failure: Resolved. No longer requiring oxygen. COPD exacerbation and CAP. Continue Duonebs, oxygen therapy and antibiotics. 2. COPD exacerbation: Improved. Stop Solumedrol due to delirium. Duonebs. Continue to monitor. 3. CHF exacerbation: Improved. Continue Lasix, but change to PO. Strict I/O daily weight and Low Na diet. 4. CAP: Improving. Continue Rocephin and Doxycycline. Monitor. Did not allow for lab work today. 5. AMS: Likely has mild cognitive decline with . Re orientation frequently. Keep day and nights straight, shades open and lights on during the day. Haldol PRN for agitation. Stop any narcotics. 6. CAD: Stable, continue Plavix, ASA and statin. Continue Metoprolol and Norvasc. BP stable. 7. Hyponatremia: decline labwork today, will monitor as possible. VTE prophylaxis: Heparin. Dispo: Possible placement in SNF for rehabilitation. visitor services technician notified and pending paperwork. <Erik Valadez - Last Filed: 04/12/19 11:09> - General Info Admission Dx/Problem (Free Text): I have seen and examined the patient independently of Clarissa Read CNP. I have reviewed and agree with the plan of care as outlined by her and agree with the plan as outlined by her. I have discussed the case with her. Please see orders. - Patient Data Vitals - Most Recent: Last Vital Signs Temp 36.6 C 04/12/19 08:00 Pulse 100 04/12/19 10:11 Resp 16 04/12/19 08:00 BP 128/81 04/12/19 10:11 Pulse Ox 96 04/12/19 08:00 I&O - Last 24 Hours: Intake & Output 04/11/19 04/12/19 04/12/19 22:59 06:59 14:59 Intake Total 1000 500 Balance 1000 500 Med Orders - Current: Current Medications Acetaminophen (Tylenol) 650 mg PO Q4H PRN PRN Reason: Pain (Mild 1-3)/fever Albuterol/Ipratropium (Duoneb 3.0-0.5 Mg/3 Ml) 3 ml NEB Q4HRRT PRN PRN Reason: Shortness Of Breath/wheezing Last Admin: 04/09/19 22:43 Dose: 3 ml Albuterol/Ipratropium (Duoneb 3.0-0.5 Mg/3 Ml) 3 ml NEB Q6HRRT [facility] Last Admin: 04/12/19 05:45 Dose: Not Given Amlodipine Besylate (Norvasc) 5 mg PO DAILY [facility] Last Admin: 04/12/19 10:10 Dose: 5 mg Aspirin (Aspirin) 81 mg PO DAILY [facility] Last Admin: 04/12/19 10:11 Dose: 81 mg Clopidogrel Bisulfate (Plavix) 75 mg PO DAILY [facility] Last Admin: 04/12/19 10:10 Dose: 75 mg Docusate Sodium (Colace) 100 mg PO BID PRN PRN Reason: Constipation Doxycycline Hyclate (Vibramycin) 100 mg PO BID [facility] Last Admin: 04/12/19 10:11 Dose: 100 mg Famotidine (Pepcid) 20 mg PO DAILY PRN PRN Reason: Heartburn Furosemide (Lasix) 20 mg PO DAILY [facility] Last Admin: 04/12/19 10:11 Dose: 20 mg Haloperidol (Haldol) 5 mg PO Q6H PRN PRN Reason: Agitation Heparin Sodium (Porcine) (Heparin Sodium) 5,000 units SUBCUT Q8H [facility] Last Admin: 04/12/19 10:19 Dose: 5,000 units Ceftriaxone Sodium 1 gm/ (Sodium Chloride) 50 mls @ 100 mls/hr IV Q24H [facility] Last Admin: 04/12/19 05:28 Dose: 100 mls/hr Metoprolol Succinate (Toprol Xl) 25 mg PO DAILY [facility] Last Admin: 04/12/19 10:11 Dose: 25 mg Nicotine (Habitrol) 14 mg TRDERM DAILY [facility] Last Admin: 04/12/19 10:16 Dose: 14 mg Simvastatin (Zocor) 20 mg PO BEDTIME [facility] Last Admin: 04/11/19 20:14 Dose: 20 mg Sodium Chloride (Saline Flush) 10 ml FLUSH ASDIRECTED PRN PRN Reason: Keep Vein Open Sodium Chloride (Saline Flush) 2.5 ml FLUSH ASDIRECTED PRN PRN Reason: Keep Vein Open Discontinued Medications Albuterol/Ipratropium (Duoneb 3.0-0.5 Mg/3 Ml) 3 ml NEB ONETIME ONE Stop: 04/08/19 05:32 Last Admin: 04/08/19 05:31 Dose: 3 ml Furosemide (Lasix) 20 mg IVPUSH NOW ONE Stop: 04/08/19 06:24 Last Admin: 04/08/19 06:29 Dose: 20 mg Furosemide (Lasix) 20 mg IVPUSH BIDDIURETIC [facility] Last Admin: 04/08/19 10:08 Dose: Not Given Furosemide (Lasix) 20 mg IVPUSH BIDDIURETIC [facility] Last Admin: 04/11/19 14:59 Dose: 20 mg Furosemide (Lasix) 20 mg IVPUSH NOW ONE Stop: 04/10/19 05:31 Last Admin: 04/10/19 05:34 Dose: 20 mg Haloperidol Lactate (Haldol) 5 mg IM ONETIME ONE Stop: 04/08/19 20:59 Last Admin: 04/08/19 21:09 Dose: 5 mg Haloperidol Lactate (Haldol) 5 mg IM ONETIME ONE Stop: 04/09/19 22:27 Last Admin: 04/09/19 22:42 Dose: 5 mg Haloperidol Lactate (Haldol) 5 mg IM ONETIME ONE Stop: 04/10/19 01:55 Last Admin: 04/10/19 02:00 Dose: 5 mg Haloperidol Lactate (Haldol) 5 mg IM ONETIME ONE Stop: 04/10/19 09:37 Last Admin: 04/10/19 09:47 Dose: 5 mg Haloperidol Lactate (Haldol) 5 mg IM ONETIME ONE Stop: 04/12/19 01:09 Last Admin: 04/12/19 01:23 Dose: 5 mg Haloperidol Lactate (Haldol) 5 mg IM ONETIME ONE Stop: 04/12/19 02:25 Last Admin: 04/12/19 02:37 Dose: 5 mg Sodium Chloride (Normal Saline) 1,000 mls @ 125 mls/hr IV STAT NETO Last Admin: 04/08/19 05:52 Dose: 125 mls/hr Ceftriaxone Sodium/Dextrose 1 (gm/ Premix) 50 mls @ 100 mls/hr IV ONETIME ONE Stop: 04/08/19 06:51 Last Admin: 04/08/19 06:32 Dose: 100 mls/hr Azithromycin 500 mg/ Sodium (Chloride) 500 mls @ 250 mls/hr IV ONETIME ONE Stop: 04/08/19 08:24 Last Admin: 04/08/19 11:18 Dose: Not Given Azithromycin 500 mg/ Sodium (Chloride) 250 mls @ 250 mls/hr IV ONETIME ONE Stop: 04/08/19 07:24 Last Admin: 04/08/19 08:20 Dose: 250 mls/hr Lorazepam (Ativan) 1 mg PO ONETIME ONE Stop: 04/08/19 21:01 Last Admin: 04/08/19 20:19 Dose: 1 mg Methylprednisolone Sodium Succinate (Solu-Medrol) 125 mg IVPUSH ONETIME ONE Stop: 04/08/19 05:32 Last Admin: 04/08/19 05:36 Dose: 125 mg Methylprednisolone Sodium Succinate (Solu-Medrol) 60 mg IV Q8H [facility] Last Admin: 04/11/19 08:41 Dose: 60 mg Methylprednisolone Sodium Succinate (Solu-Medrol) 60 mg IV Q12H [facility] Last Admin: 04/11/19 20:14 Dose: 60 mg Oxycodone HCl (Oxycodone) 5 mg PO Q4H PRN PRN Reason: Pain (moderate 4-6) Last Admin: 04/09/19 20:19 Dose: 5 mg - Problem List & Annotations (1) Altered mental status SNOMED Code(s): 411939392 Code(s): R41.82 - ALTERED MENTAL STATUS, UNSPECIFIED Status: Acute Priority: High Current Visit: Yes Qualifiers: Altered mental status type: delirium Qualified Code(s): R41.0 - Disorientation, unspecified (2) Acute and chronic respiratory failure ([id number]) SNOMED Code(s): 40314101 Code(s): J96.20 - ACUTE AND CHR RESP FAILURE, UNSP W HYPOXIA OR HYPERCAPNIA Status: Acute Priority: High Current Visit: Yes Qualifiers: Respiratory failure complication: hypoxia Qualified Code(s): J96.21 - Acute and chronic respiratory failure with hypoxia (3) CHF (congestive heart failure) SNOMED Code(s): 56837656 Code(s): I50.9 - HEART FAILURE, UNSPECIFIED Status: Acute Current Visit: Yes Qualifiers: Heart failure type: unspecified Heart failure chronicity: unspecified Qualified Code(s): I50.9 - Heart failure, unspecified (4) Hypoxia SNOMED Code(s): 366862481 Code(s): R09.02 - HYPOXEMIA Status: Acute Priority: High Current Visit : Yes (5) C2 cervical fracture SNOMED Code(s): 035612778 Code(s): S12.100A - UNSP DISP FX OF SECOND CERVICAL VERTEBRA, INIT FOR CLOS FX Status: Acute Priority: High Current Visit: No Qualifiers: Encounter type: subsequent encounter Fracture type: closed Fracture morphology: unspecified fracture morphology Fracture alignment: nondisplaced Fracture healing: with routine healing Qualified Code(s): S12.101D - Unspecified nondisplaced fracture of second cervical vertebra, subsequent encounter for fracture with routine healing (6) Smoker SNOMED Code(s): 64878338 Code(s): F17.200 - NICOTINE DEPENDENCE, UNSPECIFIED, UNCOMPLICATED Status: Chronic Priority: High Current Visit: Yes (7) COPD exacerbation SNOMED Code(s): 508743366 Code(s): J44.1 - CHRONIC OBSTRUCTIVE PULMONARY DISEASE W (ACUTE) EXACERBATION Status: Acute Priority: High Current Visit: Yes (8) Hyponatremia SNOMED Code(s): 99447359 Code(s): E87.1 - HYPO-OSMOLALITY AND HYPONATREMIA Status: Acute Priority : High Current Visit: No
[2019-04-12] MEDS: Clopidogrel 75 MG Tab PO SCH (10:10)
[2019-04-12] MEDS: amLODIPine 5 MG Tab PO SCH (10:10)
[2019-04-12] MEDS: Doxycycline 100 MG Cap PO SCH ×2 (10:11→20:42)
[2019-04-12] MEDS: Aspirin 81 MG Tab.Chew PO SCH (10:11)
[2019-04-12] MEDS: Metoprolol Succinate 25 MG Tab.ER PO SCH (10:11)
[2019-04-12] MEDS: Furosemide 20 MG Tab PO SCH (10:11)
[2019-04-12] MEDS: Nicotine 14 MG/24 Hr Patch TRDERM SCH (10:16)
[2019-04-12] MEDS: Heparin Sodium 5,000 Units/ML Vial SUBCUT SCH ×2 (10:19→17:12)
[2019-04-12] MEDS: methylPREDNISolone Sodium Succinate 125 MG/2 ML SDV IV SCH (13:14)
[2019-04-12] MEDS: Furosemide 20 MG/2 ML VIAL IVPUSH SCH (13:14)
[2019-04-12] MEDS: Cefdinir 300 MG Cap PO SCH (20:41)
[2019-04-12] MEDS: Simvastatin 20 MG Tab PO SCH (20:42)
[2019-04-13] MEDS: Heparin Sodium 5,000 Units/ML Vial SUBCUT SCH ×3 (00:52→15:45)
[2019-04-13] MEDS: Albuterol/Ipratropium 3.0-0.5 MG/3 ML Neb Soln NEB SCH (05:44)
[2019-04-13 08:12] LABS: CARBON DIOXIDE,CO2 25.5 mmol/L (21.0-32.0); POTASSIUM,K 3.3 mmol/L (3.5-5.1)
[2019-04-13] MEDS: Nicotine 14 MG/24 Hr Patch TRDERM SCH (08:59)
[2019-04-13] MEDS: Aspirin 81 MG Tab.Chew PO SCH (08:59)
[2019-04-13] MEDS: Cefdinir 300 MG Cap PO SCH ×2 (09:00→22:00)
[2019-04-13] MEDS: Furosemide 20 MG Tab PO SCH (09:00)
[2019-04-13] MEDS: Doxycycline 100 MG Cap PO SCH ×2 (09:00→22:07)
[2019-04-13] MEDS: Metoprolol Succinate 25 MG Tab.ER PO SCH (09:00)
[2019-04-13] MEDS: amLODIPine 5 MG Tab PO SCH (09:00)
[2019-04-13] MEDS: Clopidogrel 75 MG Tab PO SCH (09:00)
--- NOTE | 2019-04-13 09:47 | PCM.PN ---
<Clarissa Read M - Last Filed: 04/13/19 09:43> - General Info Date of Service: 04/13/19 Admission Dx/Problem (Free Text): CHF, COPD Pneumonia Subjective Update: Sleeping this morning, Bren, girlfriend requests not waking him yet as he didn' t sleep much overnight. Continues to be aggressive intermittently. Bren reports this is his normal at home when he isn't allowed to do what he wants to do. Marianela and I spoke with Bren regarding the denial for placement in [place]. She understands and feels ok taking him home in the next day or two. Pending how labwork looks. She understands with delirium, it may improve after he is back in his normal surroundings vs being in the hospital - Patient Data Vitals - Most Recent: Last Vital Signs Temp 97.3 F 04/13/19 07:29 Pulse 87 04/13/19 09:00 Resp 19 04/13/19 07:29 BP 127/73 04/13/19 09:00 Pulse Ox 94 L 04/13/19 07:29 Weight - Most Recent: 62.641 kg I&O - Last 24 Hours: Intake & Output 04/12/19 04/13/19 04/13/19 22:59 06:59 14:59 Intake Total 500 500 Balance 500 500 Lab Results Last 24 Hours: Laboratory Results - last 24 hr 04/13/19 04/13/19 Range/Units 07:35 07:35 WBC 10.68 (4.0-11.0) K/uL RBC 3.25 L (4.50-5.90) M/uL Hgb 10.0 L (13.0-17.0) g/dL Hct 29.6 L (38.0-50.0) % MCV 91.1 (80.0-98.0) fL MCH 30.8 (27.0-32.0) pg MCHC 33.8 (31.0-37.0) g/dL RDW Std Deviation 46.2 (28.0-62.0) fl RDW Coeff of Dalila 14 (11.0-15.0) % Plt Count 238 (150-400) K/uL MPV 9.40 (7.40-12.00) fL Neut % (Auto) 75.6 (48.0-80.0) % Lymph % (Auto) 10.2 L (16.0-40.0) % [place] % (Auto) 14.0 (0.0-15.0) % Eos % (Auto) 0.2 (0.0-7.0) % Baso % (Auto) 0.0 (0.0-1.5) % Neut # (Auto) 8.1 H (1.4-5.7) K/uL Lymph # (Auto) 1.1 (0.6-2.4) K/uL [place] # (Auto) 1.5 H (0.0-0.8) K/uL Eos # (Auto) 0.0 (0.0-0.7) K/uL Baso # (Auto) 0.0 (0.0-0.1) K/uL Nucleated RBC % 0.0 /100WBC Nucleated RBCs # 0 K/uL Sodium 135 L (136-148) mmol/L Potassium 3.3 L (3.5-5.1) mmol/L Chloride 100 (98-107) mmol/L Carbon Dioxide 25.5 (21.0-32.0) mmol/L BUN 55 H (7.0-18.0) mg/dL Creatinine 1.6 H (0.8-1.3) mg/dL Est Cr Clr Drug Dosing 27.73 mL/min Estimated GFR (MDRD) 40.9 ml/min Glucose 127 H (74-106) mg/dL Calcium 9.1 (8.5-10.1) mg/dL Med Orders - Current: Current Medications Acetaminophen (Tylenol) 650 mg PO Q4H PRN PRN Reason: Pain (Mild 1-3)/fever Albuterol/Ipratropium (Duoneb 3.0-0.5 Mg/3 Ml) 3 ml NEB Q4HRRT PRN PRN Reason: Shortness Of Breath/wheezing Last Admin: 04/09/19 22:43 Dose: 3 ml Albuterol/Ipratropium (Duoneb 3.0-0.5 Mg/3 Ml) 3 ml NEB Q6HRRT NETO Last Admin: 04/13/19 05:44 Dose: 3 ml Amlodipine Besylate (Norvasc) 5 mg PO DAILY [facility] Last Admin: 04/13/19 09:00 Dose: 5 mg Aspirin (Aspirin) 81 mg PO DAILY [facility] Last Admin: 04/13/19 08:59 Dose: 81 mg Cefdinir (Omnicef) 300 mg PO BID [facility] Last Admin: 04/13/19 09:00 Dose: 300 mg Clopidogrel Bisulfate (Plavix) 75 mg PO DAILY [facility] Last Admin: 04/13/19 09:00 Dose: 75 mg Docusate Sodium (Colace) 100 mg PO BID PRN PRN Reason: Constipation Doxycycline Hyclate (Vibramycin) 100 mg PO BID [facility] Last Admin: 04/13/19 09:00 Dose: 100 mg Famotidine (Pepcid) 20 mg PO DAILY PRN PRN Reason: Heartburn Furosemide (Lasix) 20 mg PO DAILY [facility] Last Admin: 04/13/19 09:00 Dose: 20 mg Haloperidol (Haldol) 5 mg PO Q6H PRN PRN Reason: Agitation Heparin Sodium (Porcine) (Heparin Sodium) 5,000 units SUBCUT Q8H [facility] Last Admin: 04/13/19 08:58 Dose: 5,000 units Metoprolol Succinate (Toprol Xl) 25 mg PO DAILY [facility] Last Admin: 04/13/19 09:00 Dose: 25 mg Nicotine (Habitrol) 14 mg TRDERM DAILY [facility] Last Admin: 04/13/19 08:59 Dose: 14 mg Simvastatin (Zocor) 20 mg PO BEDTIME [facility] Last Admin: 04/12/19 20:42 Dose: 20 mg Sodium Chloride (Saline Flush) 10 ml FLUSH ASDIRECTED PRN PRN Reason: Keep Vein Open Sodium Chloride (Saline Flush) 2.5 ml FLUSH ASDIRECTED PRN PRN Reason: Keep Vein Open Discontinued Medications Albuterol/Ipratropium (Duoneb 3.0-0.5 Mg/3 Ml) 3 ml NEB ONETIME ONE Stop: 04/08/19 05:32 Last Admin: 04/08/19 05:31 Dose: 3 ml Furosemide (Lasix) 20 mg IVPUSH NOW ONE Stop: 04/08/19 06:24 Last Admin: 04/08/19 06:29 Dose: 20 mg Furosemide (Lasix) 20 mg IVPUSH BIDDIURETIC [facility] Last Admin: 04/08/19 10:08 Dose: Not Given Furosemide (Lasix) 20 mg IVPUSH BIDDIURETIC [facility] Last Admin: 04/12/19 13:14 Dose: Not Given Furosemide (Lasix) 20 mg IVPUSH NOW ONE Stop: 04/10/19 05:31 Last Admin: 04/10/19 05:34 Dose: 20 mg Haloperidol Lactate (Haldol) 5 mg IM ONETIME ONE Stop: 04/08/19 20:59 Last Admin: 04/08/19 21:09 Dose: 5 mg Haloperidol Lactate (Haldol) 5 mg IM ONETIME ONE Stop: 04/09/19 22:27 Last Admin: 04/09/19 22:42 Dose: 5 mg Haloperidol Lactate (Haldol) 5 mg IM ONETIME ONE Stop: 04/10/19 01:55 Last Admin: 04/10/19 02:00 Dose: 5 mg Haloperidol Lactate (Haldol) 5 mg IM ONETIME ONE Stop: 04/10/19 09:37 Last Admin: 04/10/19 09:47 Dose: 5 mg Haloperidol Lactate (Haldol) 5 mg IM ONETIME ONE Stop: 04/12/19 01:09 Last Admin: 04/12/19 01:23 Dose: 5 mg Haloperidol Lactate (Haldol) 5 mg IM ONETIME ONE Stop: 04/12/19 02:25 Last Admin: 04/12/19 02:37 Dose: 5 mg Sodium Chloride (Normal Saline) 1,000 mls @ 125 mls/hr IV STAT NETO Last Admin: 04/08/19 05:52 Dose: 125 mls/hr Ceftriaxone Sodium/Dextrose 1 (gm/ Premix) 50 mls @ 100 mls/hr IV ONETIME ONE Stop: 04/08/19 06:51 Last Admin: 04/08/19 06:32 Dose: 100 mls/hr Azithromycin 500 mg/ Sodium (Chloride) 500 mls @ 250 mls/hr IV ONETIME ONE Stop: 04/08/19 08:24 Last Admin: 04/08/19 11:18 Dose: Not Given Azithromycin 500 mg/ Sodium (Chloride) 250 mls @ 250 mls/hr IV ONETIME ONE Stop: 04/08/19 07:24 Last Admin: 04/08/19 08:20 Dose: 250 mls/hr Ceftriaxone Sodium 1 gm/ (Sodium Chloride) 50 mls @ 100 mls/hr IV Q24H NETO Last Admin: 04/12/19 05:28 Dose: 100 mls/hr Lorazepam (Ativan) 1 mg PO ONETIME ONE Stop: 04/08/19 21:01 Last Admin: 04/08/19 20:19 Dose: 1 mg Methylprednisolone Sodium Succinate (Solu-Medrol) 125 mg IVPUSH ONETIME ONE Stop: 04/08/19 05:32 Last Admin: 04/08/19 05:36 Dose: 125 mg Methylprednisolone Sodium Succinate (Solu-Medrol) 60 mg IV Q8H NETO Last Admin: 04/11/19 08:41 Dose: 60 mg Methylprednisolone Sodium Succinate (Solu-Medrol) 60 mg IV Q12H NETO Last Admin: 04/12/19 13:14 Dose: Not Given Oxycodone HCl (Oxycodone) 5 mg PO Q4H PRN PRN Reason: Pain (moderate 4-6) Last Admin: 04/09/19 20:19 Dose: 5 mg - Problem List & Annotations (1) Acute and chronic respiratory failure ([id number]) SNOMED Code(s): 80100794 Code(s): J96.20 - ACUTE AND CHR RESP FAILURE, UNSP W HYPOXIA OR HYPERCAPNIA Status: Acute Priority: High Current Visit: Yes Qualifiers: Respiratory failure complication: hypoxia Qualified Code(s): J96.21 - Acute and chronic respiratory failure with hypoxia (2) Altered mental status SNOMED Code(s): 240830034 Code(s): R41.82 - ALTERED MENTAL STATUS, UNSPECIFIED Status: Acute Priority: High Current Visit: Yes Qualifiers: Altered mental status type: delirium Qualified Code(s): R41.0 - Disorientation, unspecified (3) CHF (congestive heart failure) SNOMED Code(s): 45127431 Code(s): I50.9 - HEART FAILURE, UNSPECIFIED Status: Acute Current Visit: Yes Qualifiers: Heart failure type: unspecified Heart failure chronicity: unspecified Qualified Code(s): I50.9 - Heart failure, unspecified (4) COPD exacerbation SNOMED Code(s): 579232769 Code(s): J44.1 - CHRONIC OBSTRUCTIVE PULMONARY DISEASE W (ACUTE) EXACERBATION Status: Acute Priority: High Current Visit: Yes (5) Chronic hyponatremia SNOMED Code(s): 97456643 Code(s): E87.1 - HYPO-OSMOLALITY AND HYPONATREMIA Status: Acute Current Visit: Yes (6) Hypoxia SNOMED Code(s): 463337823 Code(s): R09.02 - HYPOXEMIA Status: Acute Priority: High Current Visit : Yes (7) Infiltrate of lung present on chest x-ray SNOMED Code(s): 472741296, 388695628 Code(s): R91.8 - OTHER NONSPECIFIC ABNORMAL FINDING OF LUNG FIELD Status: Acute Current Visit: Yes (8) Smoker SNOMED Code(s): 95814893 Code(s): F17.200 - NICOTINE DEPENDENCE, UNSPECIFIED, UNCOMPLICATED Status: Chronic Priority: High Current Visit: Yes (9) C2 cervical fracture SNOMED Code(s): 563494972 Code(s): S12.100A - UNSP DISP FX OF SECOND CERVICAL VERTEBRA, INIT FOR CLOS FX Status: Acute Priority: High Current Visit: No Qualifiers: Encounter type: subsequent encounter Fracture type: closed Fracture morphology: unspecified fracture morphology Fracture alignment: nondisplaced Fracture healing: with routine healing Qualified Code(s): S12.101D - Unspecified nondisplaced fracture of second cervical vertebra, subsequent encounter for fracture with routine healing - Problem List Review Problem List Initiated/Reviewed/Updated: Yes - My Orders Last 24 Hours: My Active Orders 04/12/19 09:11 Haloperidol [Haldol] 5 mg PO Q6H PRN 04/12/19 09:15 Furosemide [Lasix] 20 mg PO DAILY 04/14/19 05:11 BASIC METABOLIC PANEL,BMP [CHEM] AM CBC WITH AUTO DIFF [HEME] AM - Plan Plan:: This 89 year old male admitted with acute on chronic hypoxic respiratory failure , CHF exacerbation, and CAP 1. COPD exacerbation: Improved. Duonebs. Continue to monitor. 2. CHF exacerbation: Improved. Continue PO Lasix. Strict I/O daily weight and Low Na diet. 3. CAP: Improving. Continue Rocephin and Doxycycline. Monitor. Leukocytosis improved. 4. AMS: Likely has mild cognitive decline with . Re orientation frequently. Keep day and nights straight, shades open and lights on during the day. Haldol PRN for agitation. 5. CAD: Stable, continue Plavix, ASA and statin. Continue Metoprolol and Norvasc. BP stable. 6. Hyponatremia: improved. Monitor. VTE prophylaxis: Heparin. Dispo: Possible placement in SNF for rehabilitation. banking services officer notified and pending paperwork. <Erik Valadez - Last Filed: 04/13/19 12:13> - General Info Admission Dx/Problem (Free Text): I have seen and examined the patient independently of Clarissa Read CNP. I have reviewed and agree with the plan of care as outlined by her. I have discussed the case with her. Please see orders. - Patient Data Vitals - Most Recent: Last Vital Signs Temp 36.3 C 04/13/19 07:29 Pulse 87 04/13/19 09:00 Resp 19 04/13/19 07:29 BP 127/73 04/13/19 09:00 Pulse Ox 94 L 04/13/19 07:29 I&O - Last 24 Hours: Intake & Output 04/12/19 04/13/19 04/13/19 22:59 06:59 14:59 Intake Total 500 500 Balance 500 500 Lab Results Last 24 Hours: Laboratory Results - last 24 hr 04/13/19 04/13/19 Range/Units 07:35 07:35 WBC 10.68 (4.0-11.0) K/uL RBC 3.25 L (4.50-5.90) M/uL Hgb 10.0 L (13.0-17.0) g/dL Hct 29.6 L (38.0-50.0) % MCV 91.1 (80.0-98.0) fL MCH 30.8 (27.0-32.0) pg MCHC 33.8 (31.0-37.0) g/dL RDW Std Deviation 46.2 (28.0-62.0) fl RDW Coeff of Dalila 14 (11.0-15.0) % Plt Count 238 (150-400) K/uL MPV 9.40 (7.40-12.00) fL Neut % (Auto) 75.6 (48.0-80.0) % Lymph % (Auto) 10.2 L (16.0-40.0) % [place] % (Auto) 14.0 (0.0-15.0) % Eos % (Auto) 0.2 (0.0-7.0) % Baso % (Auto) 0.0 (0.0-1.5) % Neut # (Auto) 8.1 H (1.4-5.7) K/uL Lymph # (Auto) 1.1 (0.6-2.4) K/uL [place] # (Auto) 1.5 H (0.0-0.8) K/uL Eos # (Auto) 0.0 (0.0-0.7) K/uL Baso # (Auto) 0.0 (0.0-0.1) K/uL Nucleated RBC % 0.0 /100WBC Nucleated RBCs # 0 K/uL Sodium 135 L (136-148) mmol/L Potassium 3.3 L (3.5-5.1) mmol/L Chloride 100 (98-107) mmol/L Carbon Dioxide 25.5 (21.0-32.0) mmol/L BUN 55 H (7.0-18.0) mg/dL Creatinine 1.6 H (0.8-1.3) mg/dL Est Cr Clr Drug Dosing 27.73 mL/min Estimated GFR (MDRD) 40.9 ml/min Glucose 127 H (74-106) mg/dL Calcium 9.1 (8.5-10.1) mg/dL Med Orders - Current: Current Medications Acetaminophen (Tylenol) 650 mg PO Q4H PRN PRN Reason: Pain (Mild 1-3)/fever Albuterol/Ipratropium (Duoneb 3.0-0.5 Mg/3 Ml) 3 ml NEB Q6HRRT PRN PRN Reason: Wheezing Amlodipine Besylate (Norvasc) 5 mg PO DAILY [facility] Last Admin: 04/13/19 09:00 Dose: 5 mg Aspirin (Aspirin) 81 mg PO DAILY [facility] Last Admin: 04/13/19 08:59 Dose: 81 mg Cefdinir (Omnicef) 300 mg PO BID [facility] Last Admin: 04/13/19 09:00 Dose: 300 mg Clopidogrel Bisulfate (Plavix) 75 mg PO DAILY [facility] Last Admin: 04/13/19 09:00 Dose: 75 mg Docusate Sodium (Colace) 100 mg PO BID PRN PRN Reason: Constipation Doxycycline Hyclate (Vibramycin) 100 mg PO BID [facility] Last Admin: 04/13/19 09:00 Dose: 100 mg Famotidine (Pepcid) 20 mg PO DAILY PRN PRN Reason: Heartburn Furosemide (Lasix) 20 mg PO DAILY [facility] Last Admin: 04/13/19 09:00 Dose: 20 mg Haloperidol (Haldol) 5 mg PO Q6H PRN PRN Reason: Agitation Heparin Sodium (Porcine) (Heparin Sodium) 5,000 units SUBCUT Q8H [facility] Last Admin: 04/13/19 08:58 Dose: 5,000 units Metoprolol Succinate (Toprol Xl) 25 mg PO DAILY [facility] Last Admin: 04/13/19 09:00 Dose: 25 mg Nicotine (Habitrol) 14 mg TRDERM DAILY [facility] Last Admin: 04/13/19 08:59 Dose: 14 mg Simvastatin (Zocor) 20 mg PO BEDTIME [facility] Last Admin: 04/12/19 20:42 Dose: 20 mg Sodium Chloride (Saline Flush) 10 ml FLUSH ASDIRECTED PRN PRN Reason: Keep Vein Open Sodium Chloride (Saline Flush) 2.5 ml FLUSH ASDIRECTED PRN PRN Reason: Keep Vein Open Discontinued Medications Albuterol/Ipratropium (Duoneb 3.0-0.5 Mg/3 Ml) 3 ml NEB ONETIME ONE Stop: 04/08/19 05:32 Last Admin: 04/08/19 05:31 Dose: 3 ml Albuterol/Ipratropium (Duoneb 3.0-0.5 Mg/3 Ml) 3 ml NEB Q4HRRT PRN PRN Reason: Shortness Of Breath/wheezing Last Admin: 04/09/19 22:43 Dose: 3 ml Albuterol/Ipratropium (Duoneb 3.0-0.5 Mg/3 Ml) 3 ml NEB Q6HRRT [facility] Last Admin: 04/13/19 05:44 Dose: 3 ml Furosemide (Lasix) 20 mg IVPUSH NOW ONE Stop: 04/08/19 06:24 Last Admin: 04/08/19 06:29 Dose: 20 mg Furosemide (Lasix) 20 mg IVPUSH BIDDIURETIC [facility] Last Admin: 04/08/19 10:08 Dose: Not Given Furosemide (Lasix) 20 mg IVPUSH BIDDIURETIC [facility] Last Admin: 04/12/19 13:14 Dose: Not Given Furosemide (Lasix) 20 mg IVPUSH NOW ONE Stop: 04/10/19 05:31 Last Admin: 04/10/19 05:34 Dose: 20 mg Haloperidol Lactate (Haldol) 5 mg IM ONETIME ONE Stop: 04/08/19 20:59 Last Admin: 04/08/19 21:09 Dose: 5 mg Haloperidol Lactate (Haldol) 5 mg IM ONETIME ONE Stop: 04/09/19 22:27 Last Admin: 04/09/19 22:42 Dose: 5 mg Haloperidol Lactate (Haldol) 5 mg IM ONETIME ONE Stop: 04/10/19 01:55 Last Admin: 04/10/19 02:00 Dose: 5 mg Haloperidol Lactate (Haldol) 5 mg IM ONETIME ONE Stop: 04/10/19 09:37 Last Admin: 04/10/19 09:47 Dose: 5 mg Haloperidol Lactate (Haldol) 5 mg IM ONETIME ONE Stop: 04/12/19 01:09 Last Admin: 04/12/19 01:23 Dose: 5 mg Haloperidol Lactate (Haldol) 5 mg IM ONETIME ONE Stop: 04/12/19 02:25 Last Admin: 04/12/19 02:37 Dose: 5 mg Sodium Chloride (Normal Saline) 1,000 mls @ 125 mls/hr IV STAT NETO Last Admin: 04/08/19 05:52 Dose: 125 mls/hr Ceftriaxone Sodium/Dextrose 1 (gm/ Premix) 50 mls @ 100 mls/hr IV ONETIME ONE Stop: 04/08/19 06:51 Last Admin: 04/08/19 06:32 Dose: 100 mls/hr Azithromycin 500 mg/ Sodium (Chloride) 500 mls @ 250 mls/hr IV ONETIME ONE Stop: 04/08/19 08:24 Last Admin: 04/08/19 11:18 Dose: Not Given Azithromycin 500 mg/ Sodium (Chloride) 250 mls @ 250 mls/hr IV ONETIME ONE Stop: 04/08/19 07:24 Last Admin: 04/08/19 08:20 Dose: 250 mls/hr Ceftriaxone Sodium 1 gm/ (Sodium Chloride) 50 mls @ 100 mls/hr IV Q24H NETO Last Admin: 04/12/19 05:28 Dose: 100 mls/hr Lorazepam (Ativan) 1 mg PO ONETIME ONE Stop: 04/08/19 21:01 Last Admin: 07/26/19 20:19 Dose: 1 mg Methylprednisolone Sodium Succinate (Solu-Medrol) 125 mg IVPUSH ONETIME ONE Stop: 04/08/19 05:32 Last Admin: 04/08/19 05:36 Dose: 125 mg Methylprednisolone Sodium Succinate (Solu-Medrol) 60 mg IV Q8H [facility] Last Admin: 04/11/19 08:41 Dose: 60 mg Methylprednisolone Sodium Succinate (Solu-Medrol) 60 mg IV Q12H [facility] Last Admin: 04/12/19 13:14 Dose: Not Given Oxycodone HCl (Oxycodone) 5 mg PO Q4H PRN PRN Reason: Pain (moderate 4-6) Last Admin: 04/09/19 20:19 Dose: 5 mg - Problem List & Annotations (1) Altered mental status SNOMED Code(s): 023014833 Code(s): R41.82 - ALTERED MENTAL STATUS, UNSPECIFIED Status: Acute Priority: High Current Visit: Yes Qualifiers: Altered mental status type: delirium Qualified Code(s): R41.0 - Disorientation, unspecified (2) Acute and chronic respiratory failure ([id number]) SNOMED Code(s): 30886436 Code(s): J96.20 - ACUTE AND CHR RESP FAILURE, UNSP W HYPOXIA OR HYPERCAPNIA Status: Acute Priority: High Current Visit: Yes Qualifiers: Respiratory failure complication: hypoxia Qualified Code(s): J96.21 - Acute and chronic respiratory failure with hypoxia (3) CHF (congestive heart failure) SNOMED Code(s): 55777227 Code(s): I50.9 - HEART FAILURE, UNSPECIFIED Status: Acute Current Visit: Yes Qualifiers: Heart failure type: unspecified Heart failure chronicity: unspecified Qualified Code(s): I50.9 - Heart failure, unspecified (4) Hypoxia SNOMED Code(s): 010282079 Code(s): R09.02 - HYPOXEMIA Status: Acute Priority: High Current Visit : Yes (5) C2 cervical fracture SNOMED Code(s): 493401588 Code(s): S12.100A - UNSP DISP FX OF SECOND CERVICAL VERTEBRA, INIT FOR CLOS FX Status: Acute Priority: High Current Visit: No Qualifiers: Encounter type: subsequent encounter Fracture type: closed Fracture morphology: unspecified fracture morphology Fracture alignment: nondisplaced Fracture healing: with routine healing Qualified Code(s): S12.101D - Unspecified nondisplaced fracture of second cervical vertebra, subsequent encounter for fracture with routine healing (6) Smoker SNOMED Code(s): 04623115 Code(s): F17.200 - NICOTINE DEPENDENCE, UNSPECIFIED, UNCOMPLICATED Status: Chronic Priority: High Current Visit: Yes (7) COPD exacerbation SNOMED Code(s): 216404726 Code(s): J44.1 - CHRONIC OBSTRUCTIVE PULMONARY DISEASE W (ACUTE) EXACERBATION Status: Acute Priority: High Current Visit: Yes (8) Hyponatremia SNOMED Code(s): 07872555 Code(s): E87.1 - HYPO-OSMOLALITY AND HYPONATREMIA Status: Acute Priority : High Current Visit: No - My Orders Last 24 Hours: My Active Orders 04/12/19 12:13 [employer] Discontinue [Cardiac Monitoring Discontinue] [RC] Click to Edit 04/12/19 18:57 Communication Order [RC] PER UNIT ROUTINE 04/12/19 21:00 Cefdinir [Omnicef] 300 mg PO BID
[2019-04-13] MEDS ORDERED: Albuterol/Ipratropium 3.0-0.5 MG/3 ML Neb Soln NEB PRN (11:14)
[2019-04-13] MEDS: Simvastatin 20 MG Tab PO SCH (22:00)
[2019-04-14] MEDS: Heparin Sodium 5,000 Units/ML Vial SUBCUT SCH ×4 (00:44→23:58)
[2019-04-14 08:19] LABS: CARBON DIOXIDE,CO2 27.3 mmol/L (21.0-32.0); POTASSIUM,K 3.4 mmol/L (3.5-5.1)
[2019-04-14] MEDS: Furosemide 20 MG Tab PO SCH (08:48)
[2019-04-14] MEDS: Cefdinir 300 MG Cap PO SCH ×2 (08:48→21:08)
[2019-04-14] MEDS: Clopidogrel 75 MG Tab PO SCH (08:49)
[2019-04-14] MEDS: amLODIPine 5 MG Tab PO SCH (08:50)
[2019-04-14] MEDS: Aspirin 81 MG Tab.Chew PO SCH (08:51)
[2019-04-14] MEDS: Nicotine 14 MG/24 Hr Patch TRDERM SCH (08:52)
[2019-04-14] MEDS: Metoprolol Succinate 25 MG Tab.ER PO SCH (08:52)
[2019-04-14] MEDS: Doxycycline 100 MG Cap PO SCH ×2 (08:59→21:08)
--- NOTE | 2019-04-14 10:41 | PCM.PN ---
- General Info Date of Service: 04/14/19 Admission Dx/Problem (Free Text): CAP Subjective Update: Up ambulating with girlfriend today. Alert and oriented. Reports wanting to go home today. Reports he is feeling much better Discussed with girlfriend she is unwilling to take him home until we hear from nursing facilities. Functional Status: Reports: Pain Controlled, Tolerating Diet, Ambulating, Urinating - Review of Systems General: Reports: No Symptoms. Denies: Weakness, Fatigue HEENT: Reports: No Symptoms Pulmonary: Reports: No Symptoms. Denies: Shortness of Breath Cardiovascular: Reports: No Symptoms. Denies: Chest Pain Gastrointestinal: Reports: No Symptoms. Denies: Abdominal Pain, Nausea, Vomiting Genitourinary: Reports: No Symptoms Musculoskeletal: Reports: No Symptoms Skin: Reports: No Symptoms Neurological: Reports: No Symptoms Psychiatric: Reports: No Symptoms - Patient Data Vitals - Most Recent: Last Vital Signs Temp 97.6 F 04/14/19 08:00 Pulse 70 04/14/19 08:52 Resp 16 04/14/19 08:00 BP 113/68 04/14/19 08:52 Pulse Ox 95 04/14/19 08:00 Weight - Most Recent: 61.144 kg I&O - Last 24 Hours: Intake & Output 04/13/19 04/14/19 04/14/19 22:59 06:59 14:59 Intake Total 600 450 Output Total 300 Balance 300 450 Lab Results Last 24 Hours: Laboratory Results - last 24 hr 04/14/19 04/14/19 Range/Units 07:49 07:49 WBC 9.40 (4.0-11.0) K/uL RBC 3.29 L (4.50-5.90) M/uL Hgb 10.3 L (13.0-17.0) g/dL Hct 30.4 L (38.0-50.0) % MCV 92.4 (80.0-98.0) fL MCH 31.3 (27.0-32.0) pg MCHC 33.9 (31.0-37.0) g/dL RDW Std Deviation 47.8 (28.0-62.0) fl RDW Coeff of Dalila 14 (11.0-15.0) % Plt Count 231 (150-400) K/uL MPV 9.50 (7.40-12.00) fL Neut % (Auto) 74.8 (48.0-80.0) % Lymph % (Auto) 13.7 L (16.0-40.0) % Terry % (Auto) 10.5 (0.0-15.0) % Eos % (Auto) 1.0 (0.0-7.0) % Baso % (Auto) 0.0 (0.0-1.5) % Neut # (Auto) 7.0 H (1.4-5.7) K/uL Lymph # (Auto) 1.3 (0.6-2.4) K/uL Terry # (Auto) 1.0 H (0.0-0.8) K/uL Eos # (Auto) 0.1 (0.0-0.7) K/uL Baso # (Auto) 0.0 (0.0-0.1) K/uL Nucleated RBC % 0.0 /100WBC Nucleated RBCs # 0 K/uL Sodium 139 (136-148) mmol/L Potassium 3.4 L (3.5-5.1) mmol/L Chloride 101 (98-107) mmol/L Carbon Dioxide 27.3 (21.0-32.0) mmol/L BUN 47 H (7.0-18.0) mg/dL Creatinine 1.4 H (0.8-1.3) mg/dL Est Cr Clr Drug Dosing 30.94 mL/min Estimated GFR (MDRD) 47.7 ml/min Glucose 104 (74-106) mg/dL Calcium 9.1 (8.5-10.1) mg/dL Med Orders - Current: Current Medications Acetaminophen (Tylenol) 650 mg PO Q4H PRN PRN Reason: Pain (Mild 1-3)/fever Albuterol/Ipratropium (Duoneb 3.0-0.5 Mg/3 Ml) 3 ml NEB Q6HRRT PRN PRN Reason: Wheezing Amlodipine Besylate (Norvasc) 5 mg PO DAILY [facility] Last Admin: 04/14/19 08:50 Dose: 5 mg Aspirin (Aspirin) 81 mg PO DAILY [facility] Last Admin: 04/14/19 08:51 Dose: 81 mg Cefdinir (Omnicef) 300 mg PO BID [facility] Last Admin: 04/14/19 08:48 Dose: 300 mg Clopidogrel Bisulfate (Plavix) 75 mg PO DAILY [facility] Last Admin: 04/14/19 08:49 Dose: 75 mg Docusate Sodium (Colace) 100 mg PO BID PRN PRN Reason: Constipation Doxycycline Hyclate (Vibramycin) 100 mg PO BID [facility] Last Admin: 04/14/19 08:59 Dose: 100 mg Famotidine (Pepcid) 20 mg PO DAILY PRN PRN Reason: Heartburn Furosemide (Lasix) 20 mg PO DAILY [facility] Last Admin: 04/14/19 08:48 Dose: 20 mg Haloperidol (Haldol) 5 mg PO Q6H PRN PRN Reason: Agitation Heparin Sodium (Porcine) (Heparin Sodium) 5,000 units SUBCUT Q8H [facility] Last Admin: 04/14/19 09:00 Dose: 5,000 units Metoprolol Succinate (Toprol Xl) 25 mg PO DAILY [facility] Last Admin: 04/14/19 08:52 Dose: 25 mg Nicotine (Habitrol) 14 mg TRDERM DAILY [facility] Last Admin: 04/14/19 08:52 Dose: 14 mg Simvastatin (Zocor) 20 mg PO BEDTIME [facility] Last Admin: 04/13/19 22:00 Dose: Not Given Sodium Chloride (Saline Flush) 10 ml FLUSH ASDIRECTED PRN PRN Reason: Keep Vein Open Sodium Chloride (Saline Flush) 2.5 ml FLUSH ASDIRECTED PRN PRN Reason: Keep Vein Open Discontinued Medications Albuterol/Ipratropium (Duoneb 3.0-0.5 Mg/3 Ml) 3 ml NEB ONETIME ONE Stop: 04/08/19 05:32 Last Admin: 04/08/19 05:31 Dose: 3 ml Albuterol/Ipratropium (Duoneb 3.0-0.5 Mg/3 Ml) 3 ml NEB Q4HRRT PRN PRN Reason: Shortness Of Breath/wheezing Last Admin: 04/09/19 22:43 Dose: 3 ml Albuterol/Ipratropium (Duoneb 3.0-0.5 Mg/3 Ml) 3 ml NEB Q6HRRT [facility] Last Admin: 04/13/19 05:44 Dose: 3 ml Furosemide (Lasix) 20 mg IVPUSH NOW ONE Stop: 04/08/19 06:24 Last Admin: 04/08/19 06:29 Dose: 20 mg Furosemide (Lasix) 20 mg IVPUSH BIDDIURETIC [facility] Last Admin: 04/08/19 10:08 Dose: Not Given Furosemide (Lasix) 20 mg IVPUSH BIDDIURETIC [facility] Last Admin: 04/12/19 13:14 Dose: Not Given Furosemide (Lasix) 20 mg IVPUSH NOW ONE Stop: 04/10/19 05:31 Last Admin: 04/10/19 05:34 Dose: 20 mg Haloperidol Lactate (Haldol) 5 mg IM ONETIME ONE Stop: 04/08/19 20:59 Last Admin: 04/08/19 21:09 Dose: 5 mg Haloperidol Lactate (Haldol) 5 mg IM ONETIME ONE Stop: 04/09/19 22:27 Last Admin: 04/09/19 22:42 Dose: 5 mg Haloperidol Lactate (Haldol) 5 mg IM ONETIME ONE Stop: 04/10/19 01:55 Last Admin: 04/10/19 02:00 Dose: 5 mg Haloperidol Lactate (Haldol) 5 mg IM ONETIME ONE Stop: 04/10/19 09:37 Last Admin: 04/10/19 09:47 Dose: 5 mg Haloperidol Lactate (Haldol) 5 mg IM ONETIME ONE Stop: 04/12/19 01:09 Last Admin: 04/12/19 01:23 Dose: 5 mg Haloperidol Lactate (Haldol) 5 mg IM ONETIME ONE Stop: 04/12/19 02:25 Last Admin: 04/12/19 02:37 Dose: 5 mg Sodium Chloride (Normal Saline) 1,000 mls @ 125 mls/hr IV STAT [facility] Last Admin: 04/08/19 05:52 Dose: 125 mls/hr Ceftriaxone Sodium/Dextrose 1 (gm/ Premix) 50 mls @ 100 mls/hr IV ONETIME ONE Stop: 04/08/19 06:51 Last Admin: 04/08/19 06:32 Dose: 100 mls/hr Azithromycin 500 mg/ Sodium (Chloride) 500 mls @ 250 mls/hr IV ONETIME ONE Stop: 04/08/19 08:24 Last Admin: 04/08/19 11:18 Dose: Not Given Azithromycin 500 mg/ Sodium (Chloride) 250 mls @ 250 mls/hr IV ONETIME ONE Stop: 04/08/19 07:24 Last Admin: 04/08/19 08:20 Dose: 250 mls/hr Ceftriaxone Sodium 1 gm/ (Sodium Chloride) 50 mls @ 100 mls/hr IV Q24H [facility] Last Admin: 04/12/19 05:28 Dose: 100 mls/hr Lorazepam (Ativan) 1 mg PO ONETIME ONE Stop: 04/08/19 21:01 Last Admin: 04/08/19 20:19 Dose: 1 mg Methylprednisolone Sodium Succinate (Solu-Medrol) 125 mg IVPUSH ONETIME ONE Stop: 04/08/19 05:32 Last Admin: 04/08/19 05:36 Dose: 125 mg Methylprednisolone Sodium Succinate (Solu-Medrol) 60 mg IV Q8H [facility] Last Admin: 04/11/19 08:41 Dose: 60 mg Methylprednisolone Sodium Succinate (Solu-Medrol) 60 mg IV Q12H [facility] Last Admin: 04/12/19 13:14 Dose: Not Given Oxycodone HCl (Oxycodone) 5 mg PO Q4H PRN PRN Reason: Pain (moderate 4-6) Last Admin: 04/09/19 20:19 Dose: 5 mg - Exam General: Alert, Oriented (intermittently. Needs frequent reorientation), Cooperative, No Acute Distress Neck: Supple Lungs: Clear to Auscultation, Normal Respiratory Effort Cardiovascular: Regular Rate, Regular Rhythm GI/Abdominal Exam: Normal Bowel Sounds, Soft, Non-Tender Back Exam: Normal Inspection, Full Range of Motion Extremities: Normal Inspection, Normal Range of Motion, Non-Tender Skin: Ecchymosis (lab pokes and IV startes to arms.) Wound/Incisions: Healing Well Neurological: No New Focal Deficit Psy/Mental Status: Alert, Normal Affect, Normal Mood - Problem List & Annotations (1) Acute and chronic respiratory failure ([id number]) SNOMED Code(s): 68648094 Code(s): J96.20 - ACUTE AND CHR RESP FAILURE, UNSP W HYPOXIA OR HYPERCAPNIA Status: Acute Priority: High Current Visit: Yes Qualifiers: Respiratory failure complication: hypoxia Qualified Code(s): J96.21 - Acute and chronic respiratory failure with hypoxia (2) Altered mental status SNOMED Code(s): 577275696 Code(s): R41.82 - ALTERED MENTAL STATUS, UNSPECIFIED Status: Acute Priority: High Current Visit: Yes Qualifiers: Altered mental status type: delirium Qualified Code(s): R41.0 - Disorientation, unspecified (3) CHF (congestive heart failure) SNOMED Code(s): 95182178 Code(s): I50.9 - HEART FAILURE, UNSPECIFIED Status: Acute Current Visit: Yes Qualifiers: Heart failure type: unspecified Heart failure chronicity: unspecified Qualified Code(s): I50.9 - Heart failure, unspecified (4) COPD exacerbation SNOMED Code(s): 955985202 Code(s): J44.1 - CHRONIC OBSTRUCTIVE PULMONARY DISEASE W (ACUTE) EXACERBATION Status: Acute Priority: High Current Visit: Yes (5) Chronic hyponatremia SNOMED Code(s): 73186165 Code(s): E87.1 - HYPO-OSMOLALITY AND HYPONATREMIA Status: Acute Current Visit: Yes (6) Hypoxia SNOMED Code(s): 740225338 Code(s): R09.02 - HYPOXEMIA Status: Acute Priority: High Current Visit : Yes (7) Infiltrate of lung present on chest x-ray SNOMED Code(s): 358783269, 062459482 Code(s): R91.8 - OTHER NONSPECIFIC ABNORMAL FINDING OF LUNG FIELD Status: Acute Current Visit: Yes (8) Smoker SNOMED Code(s): 08550690 Code(s): F17.200 - NICOTINE DEPENDENCE, UNSPECIFIED, UNCOMPLICATED Status: Chronic Priority: High Current Visit: Yes (9) C2 cervical fracture SNOMED Code(s): 693101257 Code(s): S12.100A - UNSP DISP FX OF SECOND CERVICAL VERTEBRA, INIT FOR CLOS FX Status: Acute Priority: High Current Visit: No Qualifiers: Encounter type: subsequent encounter Fracture type: closed Fracture morphology: unspecified fracture morphology Fracture alignment: nondisplaced Fracture healing: with routine healing Qualified Code(s): S12.101D - Unspecified nondisplaced fracture of second cervical vertebra, subsequent encounter for fracture with routine healing - Problem List Review Problem List Initiated/Reviewed/Updated: Yes - My Orders Last 24 Hours: My Active Orders 04/13/19 11:14 Albuterol/Ipratropium [DuoNeb 3.0-0.5 MG/3 ML] 3 ml NEB Q6HRRT PRN - Plan Plan:: This 89 year old male admitted with acute on chronic hypoxic respiratory failure , CHF exacerbation, and CAP 1. COPD exacerbation: Back to baseline. Duonebs PRN. Continue to monitor. 2. CHF exacerbation: Stable Continue PO Lasix. Strict I/O daily weight and Low Na diet. 3. CAP: Improving. Continue Cefdinir and Doxycycline. Monitor. 4. AMS: Likely has mild cognitive decline with . Re orientation frequently. Keep day and nights straight, shades open and lights on during the day. Haldol PRN for agitation, has not received in over 48 hours 5. CAD: Stable, continue Plavix, ASA and statin. Continue Metoprolol and Norvasc. BP stable. 6. Hyponatremia: improved. Monitor. VTE prophylaxis: Heparin. Dispo: Possible placement in SNF for rehabilitation. disability services coordinator notified and pending placement vs home with private care givers.
[2019-04-14] MEDS: risperiDONE 0.25 MG Tab PO SCH ×2 (14:09→21:08)
[2019-04-14] MEDS: Simvastatin 20 MG Tab PO SCH (21:08)
[2019-04-15] MEDS: amLODIPine 5 MG Tab PO SCH (08:56)
[2019-04-15] MEDS: Metoprolol Succinate 25 MG Tab.ER PO SCH (08:57)
[2019-04-15] MEDS: Clopidogrel 75 MG Tab PO SCH (08:57)
[2019-04-15] MEDS: Furosemide 20 MG Tab PO SCH (08:58)
[2019-04-15] MEDS: Cefdinir 300 MG Cap PO SCH ×2 (08:58→20:12)
[2019-04-15] MEDS: Doxycycline 100 MG Cap PO SCH ×2 (08:58→20:12)
[2019-04-15] MEDS: Aspirin 81 MG Tab.Chew PO SCH (08:59)
[2019-04-15] MEDS: risperiDONE 0.25 MG Tab PO SCH ×2 (08:59→20:12)
[2019-04-15] MEDS: Heparin Sodium 5,000 Units/ML Vial SUBCUT SCH ×3 (09:00→23:44)
[2019-04-15] MEDS: Nicotine 14 MG/24 Hr Patch TRDERM SCH (09:01)
--- NOTE | 2019-04-15 10:51 | PCM.PN ---
- General Info Date of Service: 04/15/19 Admission Dx/Problem (Free Text): CAP Subjective Update: Alert this morning, not oriented x 3, ambulating with walker. Girlfriend at bedside. Denies chest pain or SOB. NO concerns now. Functional Status: Reports: Pain Controlled, Tolerating Diet, Ambulating, Urinating - Review of Systems General: Reports: No Symptoms, Weakness, Malaise HEENT: Reports: No Symptoms. Denies: Headaches, Sore Throat Pulmonary: Reports: No Symptoms. Denies: Shortness of Breath - Patient Data Vitals - Most Recent: Last Vital Signs Temp 97.9 F 04/15/19 08:00 Pulse 69 04/15/19 08:57 Resp 16 04/15/19 08:00 BP 101/40 L 04/15/19 08:57 Pulse Ox 96 04/15/19 08:00 Weight - Most Recent: 64.002 kg I&O - Last 24 Hours: Intake & Output 04/14/19 04/15/19 04/15/19 22:59 06:59 14:59 Intake Total 800 240 Balance 800 240 Med Orders - Current: Current Medications Acetaminophen (Tylenol) 650 mg PO Q4H PRN PRN Reason: Pain (Mild 1-3)/fever Albuterol/Ipratropium (Duoneb 3.0-0.5 Mg/3 Ml) 3 ml NEB Q6HRRT PRN PRN Reason: Wheezing Amlodipine Besylate (Norvasc) 5 mg PO DAILY [facility] Last Admin: 04/15/19 08:56 Dose: 5 mg Aspirin (Aspirin) 81 mg PO DAILY [facility] Last Admin: 04/15/19 08:59 Dose: 81 mg Cefdinir (Omnicef) 300 mg PO BID [facility] Last Admin: 04/15/19 08:58 Dose: 300 mg Clopidogrel Bisulfate (Plavix) 75 mg PO DAILY [facility] Last Admin: 04/15/19 08:57 Dose: 75 mg Docusate Sodium (Colace) 100 mg PO BID PRN PRN Reason: Constipation Doxycycline Hyclate (Vibramycin) 100 mg PO BID [facility] Last Admin: 04/15/19 08:58 Dose: 100 mg Famotidine (Pepcid) 20 mg PO DAILY PRN PRN Reason: Heartburn Furosemide (Lasix) 20 mg PO DAILY [facility] Last Admin: 04/15/19 08:58 Dose: 20 mg Heparin Sodium (Porcine) (Heparin Sodium) 5,000 units SUBCUT Q8H [facility] Last Admin: 04/15/19 09:00 Dose: 5,000 units Metoprolol Succinate (Toprol Xl) 25 mg PO DAILY [facility] Last Admin: 04/15/19 08:57 Dose: 25 mg Nicotine (Habitrol) 14 mg TRDERM DAILY [facility] Last Admin: 04/15/19 09:01 Dose: 14 mg Risperidone (Risperidal) 0.25 mg PO BID [facility] Last Admin: 04/15/19 08:59 Dose: 0.25 mg Simvastatin (Zocor) 20 mg PO BEDTIME [facility] Last Admin: 04/14/19 21:08 Dose: 20 mg Sodium Chloride (Saline Flush) 10 ml FLUSH ASDIRECTED PRN PRN Reason: Keep Vein Open Sodium Chloride (Saline Flush) 2.5 ml FLUSH ASDIRECTED PRN PRN Reason: Keep Vein Open Discontinued Medications Albuterol/Ipratropium (Duoneb 3.0-0.5 Mg/3 Ml) 3 ml NEB ONETIME ONE Stop: 04/08/19 05:32 Last Admin: 04/08/19 05:31 Dose: 3 ml Albuterol/Ipratropium (Duoneb 3.0-0.5 Mg/3 Ml) 3 ml NEB Q4HRRT PRN PRN Reason: Shortness Of Breath/wheezing Last Admin: 04/09/19 22:43 Dose: 3 ml Albuterol/Ipratropium (Duoneb 3.0-0.5 Mg/3 Ml) 3 ml NEB Q6HRRT [facility] Last Admin: 04/13/19 05:44 Dose: 3 ml Furosemide (Lasix) 20 mg IVPUSH NOW ONE Stop: 04/08/19 06:24 Last Admin: 04/08/19 06:29 Dose: 20 mg Furosemide (Lasix) 20 mg IVPUSH BIDDIURETIC [facility] Last Admin: 04/08/19 10:08 Dose: Not Given Furosemide (Lasix) 20 mg IVPUSH [facility]URETIC [facility] Last Admin: 04/12/19 13:14 Dose: Not Given Furosemide (Lasix) 20 mg IVPUSH NOW ONE Stop: 04/10/19 05:31 Last Admin: 04/10/19 05:34 Dose: 20 mg Haloperidol (Haldol) 5 mg PO Q6H PRN PRN Reason: Agitation Haloperidol Lactate (Haldol) 5 mg IM ONETIME ONE Stop: 04/08/19 20:59 Last Admin: 04/08/19 21:09 Dose: 5 mg Haloperidol Lactate (Haldol) 5 mg IM ONETIME ONE Stop: 04/09/19 22:27 Last Admin: 04/09/19 22:42 Dose: 5 mg Haloperidol Lactate (Haldol) 5 mg IM ONETIME ONE Stop: 04/10/19 01:55 Last Admin: 04/10/19 02:00 Dose: 5 mg Haloperidol Lactate (Haldol) 5 mg IM ONETIME ONE Stop: 04/10/19 09:37 Last Admin: 04/10/19 09:47 Dose: 5 mg Haloperidol Lactate (Haldol) 5 mg IM ONETIME ONE Stop: 04/12/19 01:09 Last Admin: 04/12/19 01:23 Dose: 5 mg Haloperidol Lactate (Haldol) 5 mg IM ONETIME ONE Stop: 04/12/19 02:25 Last Admin: 04/12/19 02:37 Dose: 5 mg Sodium Chloride (Normal Saline) 1,000 mls @ 125 mls/hr IV STAT [facility] Last Admin: 04/08/19 05:52 Dose: 125 mls/hr Ceftriaxone Sodium/Dextrose 1 (gm/ Premix) 50 mls @ 100 mls/hr IV ONETIME ONE Stop: 04/08/19 06:51 Last Admin: 04/08/19 06:32 Dose: 100 mls/hr Azithromycin 500 mg/ Sodium (Chloride) 500 mls @ 250 mls/hr IV ONETIME ONE Stop: 04/08/19 08:24 Last Admin: 04/08/19 11:18 Dose: Not Given Azithromycin 500 mg/ Sodium (Chloride) 250 mls @ 250 mls/hr IV ONETIME ONE Stop: 04/08/19 07:24 Last Admin: 04/08/19 08:20 Dose: 250 mls/hr Ceftriaxone Sodium 1 gm/ (Sodium Chloride) 50 mls @ 100 mls/hr IV Q24H [facility] Last Admin: 04/12/19 05:28 Dose: 100 mls/hr Lorazepam (Ativan) 1 mg PO ONETIME ONE Stop: 04/08/19 21:01 Last Admin: 04/08/19 20:19 Dose: 1 mg Methylprednisolone Sodium Succinate (Solu-Medrol) 125 mg IVPUSH ONETIME ONE Stop: 04/08/19 05:32 Last Admin: 04/08/19 05:36 Dose: 125 mg Methylprednisolone Sodium Succinate (Solu-Medrol) 60 mg IV Q8H [facility] Last Admin: 04/11/19 08:41 Dose: 60 mg Methylprednisolone Sodium Succinate (Solu-Medrol) 60 mg IV Q12H [facility] Last Admin: 04/12/19 13:14 Dose: Not Given Oxycodone HCl (Oxycodone) 5 mg PO Q4H PRN PRN Reason: Pain (moderate 4-6) Last Admin: 04/09/19 20:19 Dose: 5 mg - Problem List & Annotations (1) Acute and chronic respiratory failure ([id number]) SNOMED Code(s): 47911593 Code(s): J96.20 - ACUTE AND CHR RESP FAILURE, UNSP W HYPOXIA OR HYPERCAPNIA Status: Acute Priority: High Current Visit: Yes Qualifiers: Respiratory failure complication: hypoxia Qualified Code(s): J96.21 - Acute and chronic respiratory failure with hypoxia (2) Altered mental status SNOMED Code(s): 298001434 Code(s): R41.82 - ALTERED MENTAL STATUS, UNSPECIFIED Status: Acute Priority: High Current Visit: Yes Qualifiers: Altered mental status type: delirium Qualified Code(s): R41.0 - Disorientation, unspecified (3) CHF (congestive heart failure) SNOMED Code(s): 55900596 Code(s): I50.9 - HEART FAILURE, UNSPECIFIED Status: Acute Current Visit: Yes Qualifiers: Heart failure type: unspecified Heart failure chronicity: unspecified Qualified Code(s): I50.9 - Heart failure, unspecified (4) COPD exacerbation SNOMED Code(s): 061895653 Code(s): J44.1 - CHRONIC OBSTRUCTIVE PULMONARY DISEASE W (ACUTE) EXACERBATION Status: Acute Priority: High Current Visit: Yes (5) Chronic hyponatremia SNOMED Code(s): 22163797 Code(s): E87.1 - HYPO-OSMOLALITY AND HYPONATREMIA Status: Acute Current Visit: Yes (6) Hypoxia SNOMED Code(s): 768621115 Code(s): R09.02 - HYPOXEMIA Status: Acute Priority: High Current Visit : Yes (7) Infiltrate of lung present on chest x-ray SNOMED Code(s): 648964776, 427799492 Code(s): R91.8 - OTHER NONSPECIFIC ABNORMAL FINDING OF LUNG FIELD Status: Acute Current Visit: Yes (8) Smoker SNOMED Code(s): 33961628 Code(s): F17.200 - NICOTINE DEPENDENCE, UNSPECIFIED, UNCOMPLICATED Status: Chronic Priority: High Current Visit: Yes (9) C2 cervical fracture SNOMED Code(s): 763386826 Code(s): S12.100A - UNSP DISP FX OF SECOND CERVICAL VERTEBRA, INIT FOR CLOS FX Status: Acute Priority: High Current Visit: No Qualifiers: Encounter type: subsequent encounter Fracture type: closed Fracture morphology: unspecified fracture morphology Fracture alignment: nondisplaced Fracture healing: with routine healing Qualified Code(s): S12.101D - Unspecified nondisplaced fracture of second cervical vertebra, subsequent encounter for fracture with routine healing - Problem List Review Problem List Initiated/Reviewed/Updated: Yes - My Orders Last 24 Hours: My Active Orders 04/14/19 13:45 risperiDONE [RisperiDAL] 0.25 mg PO BID - Plan Plan:: This 89 year old male admitted with acute on chronic hypoxic respiratory failure , CHF exacerbation, and CAP 1. COPD exacerbation: Back to baseline. Duonebs PRN. Continue to monitor. 2. CHF: Stable state. Continue PO Lasix. Strict I/O daily weight and Low Na diet. 3. CAP: Continue Cefdinir and Doxycycline. Monitor. 4. AMS: Likely has mild cognitive decline with sundowning. Re orientation frequently. Keep day and nights straight, shades open and lights on during the day. Spoke with Dr Lim, PCP regarding management. Started low dose Risperidone , 0.25 mg BID. Monitor for now. Acute delirium has cleared, Bren reports he is at baseline cognition. 5. CAD: Stable, continue Plavix, ASA and statin. Continue Metoprolol and Norvasc. BP stable. VTE prophylaxis: Heparin. Dispo: Possible placement in SNF for rehabilitation. dietary services manager notified and pending placement vs home with private care givers. Spoke with Zulay at [facility] regarding clearing of acute delirium and high encouragement and need for SNF placement. Review team is looking at new clinicals. Pending placement.
[2019-04-15] MEDS: Simvastatin 20 MG Tab PO SCH (20:12)
[2019-04-16] MEDS: Cefdinir 300 MG Cap PO SCH ×2 (08:59→20:43)
[2019-04-16] MEDS: amLODIPine 5 MG Tab PO SCH (08:59)
[2019-04-16] MEDS: Furosemide 20 MG Tab PO SCH (09:00)
[2019-04-16] MEDS: Clopidogrel 75 MG Tab PO SCH (09:01)
[2019-04-16] MEDS: Metoprolol Succinate 25 MG Tab.ER PO SCH (09:01)
[2019-04-16] MEDS: risperiDONE 0.25 MG Tab PO SCH ×2 (09:01→20:44)
[2019-04-16] MEDS: Nicotine 14 MG/24 Hr Patch TRDERM SCH (09:02)
[2019-04-16] MEDS: Aspirin 81 MG Tab.Chew PO SCH (09:02)
[2019-04-16] MEDS: Heparin Sodium 5,000 Units/ML Vial SUBCUT SCH ×3 (09:06→23:48)
[2019-04-16] MEDS: Doxycycline 100 MG Cap PO SCH ×2 (09:25→20:44)
--- NOTE | 2019-04-16 10:44 | PCM.PN ---
- General Info Date of Service: 04/16/19 - Review of Systems Systems Review Comment:: no complaints - Patient Data Vitals - Most Recent: Last Vital Signs Temp 36.6 C 04/16/19 08:00 Pulse 62 04/16/19 09:01 Resp 18 04/16/19 08:00 BP 107/53 L 04/16/19 09:01 Pulse Ox 95 04/16/19 08:00 Weight - Most Recent: 65.589 kg I&O - Last 24 Hours: Intake & Output 04/15/19 04/16/19 04/16/19 22:59 06:59 14:59 Intake Total 1250 700 Output Total 1000 350 Balance 250 350 Med Orders - Current: Current Medications Acetaminophen (Tylenol) 650 mg PO Q4H PRN PRN Reason: Pain (Mild 1-3)/fever Albuterol/Ipratropium (Duoneb 3.0-0.5 Mg/3 Ml) 3 ml NEB Q6HRRT PRN PRN Reason: Wheezing Amlodipine Besylate (Norvasc) 5 mg PO DAILY [facility] Last Admin: 04/16/19 08:59 Dose: 5 mg Aspirin (Aspirin) 81 mg PO DAILY [facility] Last Admin: 04/16/19 09:02 Dose: 81 mg Cefdinir (Omnicef) 300 mg PO BID [facility] Last Admin: 04/16/19 08:59 Dose: 300 mg Clopidogrel Bisulfate (Plavix) 75 mg PO DAILY [facility] Last Admin: 04/16/19 09:01 Dose: 75 mg Docusate Sodium (Colace) 100 mg PO BID PRN PRN Reason: Constipation Doxycycline Hyclate (Vibramycin) 100 mg PO BID [facility] Last Admin: 04/16/19 09:25 Dose: 100 mg Famotidine (Pepcid) 20 mg PO DAILY PRN PRN Reason: Heartburn Furosemide (Lasix) 20 mg PO DAILY [facility] Last Admin: 04/16/19 09:00 Dose: 20 mg Heparin Sodium (Porcine) (Heparin Sodium) 5,000 units SUBCUT Q8H [facility] Last Admin: 04/16/19 09:06 Dose: 5,000 units Metoprolol Succinate (Toprol Xl) 25 mg PO DAILY [facility] Last Admin: 04/16/19 09:01 Dose: 25 mg Nicotine (Habitrol) 14 mg TRDERM DAILY [facility] Last Admin: 04/16/19 09:02 Dose: 14 mg Risperidone (Risperidal) 0.25 mg PO BID [facility] Last Admin: 04/16/19 09:01 Dose: 0.25 mg Simvastatin (Zocor) 20 mg PO BEDTIME [facility] Last Admin: 04/15/19 20:12 Dose: 20 mg Sodium Chloride (Saline Flush) 10 ml FLUSH ASDIRECTED PRN PRN Reason: Keep Vein Open Sodium Chloride (Saline Flush) 2.5 ml FLUSH ASDIRECTED PRN PRN Reason: Keep Vein Open Discontinued Medications Albuterol/Ipratropium (Duoneb 3.0-0.5 Mg/3 Ml) 3 ml NEB ONETIME ONE Stop: 04/08/19 05:32 Last Admin: 04/08/19 05:31 Dose: 3 ml Albuterol/Ipratropium (Duoneb 3.0-0.5 Mg/3 Ml) 3 ml NEB Q4HRRT PRN PRN Reason: Shortness Of Breath/wheezing Last Admin: 04/09/19 22:43 Dose: 3 ml Albuterol/Ipratropium (Duoneb 3.0-0.5 Mg/3 Ml) 3 ml NEB Q6HRRT [facility] Last Admin: 04/13/19 05:44 Dose: 3 ml Cefdinir (Omnicef) 300 mg PO BID [facility] Last Admin: 04/15/19 20:12 Dose: 300 mg Furosemide (Lasix) 20 mg IVPUSH NOW ONE Stop: 04/08/19 06:24 Last Admin: 04/08/19 06:29 Dose: 20 mg Furosemide (Lasix) 20 mg IVPUSH BIDDIURETIC [facility] Last Admin: 04/08/19 10:08 Dose: Not Given Furosemide (Lasix) 20 mg IVPUSH BIDDIURETIC [facility] Last Admin: 04/12/19 13:14 Dose: Not Given Furosemide (Lasix) 20 mg IVPUSH NOW ONE Stop: 04/10/19 05:31 Last Admin: 04/10/19 05:34 Dose: 20 mg Haloperidol (Haldol) 5 mg PO Q6H PRN PRN Reason: Agitation Haloperidol Lactate (Haldol) 5 mg IM ONETIME ONE Stop: 04/08/19 20:59 Last Admin: 04/08/19 21:09 Dose: 5 mg Haloperidol Lactate (Haldol) 5 mg IM ONETIME ONE Stop: 04/09/19 22:27 Last Admin: 04/09/19 22:42 Dose: 5 mg Haloperidol Lactate (Haldol) 5 mg IM ONETIME ONE Stop: 04/10/19 01:55 Last Admin: 04/10/19 02:00 Dose: 5 mg Haloperidol Lactate (Haldol) 5 mg IM ONETIME ONE Stop: 04/10/19 09:37 Last Admin: 04/10/19 09:47 Dose: 5 mg Haloperidol Lactate (Haldol) 5 mg IM ONETIME ONE Stop: 04/12/19 01:09 Last Admin: 04/12/19 01:23 Dose: 5 mg Haloperidol Lactate (Haldol) 5 mg IM ONETIME ONE Stop: 04/12/19 02:25 Last Admin: 04/12/19 02:37 Dose: 5 mg Sodium Chloride (Normal Saline) 1,000 mls @ 125 mls/hr IV STAT [facility] Last Admin: 04/08/19 05:52 Dose: 125 mls/hr Ceftriaxone Sodium/Dextrose 1 (gm/ Premix) 50 mls @ 100 mls/hr IV ONETIME ONE Stop: 04/08/19 06:51 Last Admin: 04/08/19 06:32 Dose: 100 mls/hr Azithromycin 500 mg/ Sodium (Chloride) 500 mls @ 250 mls/hr IV ONETIME ONE Stop: 04/08/19 08:24 Last Admin: 04/08/19 11:18 Dose: Not Given Azithromycin 500 mg/ Sodium (Chloride) 250 mls @ 250 mls/hr IV ONETIME ONE Stop: 04/08/19 07:24 Last Admin: 04/08/19 08:20 Dose: 250 mls/hr Ceftriaxone Sodium 1 gm/ (Sodium Chloride) 50 mls @ 100 mls/hr IV Q24H [facility] Last Admin: 04/12/19 05:28 Dose: 100 mls/hr Lorazepam (Ativan) 1 mg PO ONETIME ONE Stop: 04/08/19 21:01 Last Admin: 04/08/19 20:19 Dose: 1 mg Methylprednisolone Sodium Succinate (Solu-Medrol) 125 mg IVPUSH ONETIME ONE Stop: 04/08/19 05:32 Last Admin: 04/08/19 05:36 Dose: 125 mg Methylprednisolone Sodium Succinate (Solu-Medrol) 60 mg IV Q8H [facility] Last Admin: 04/11/19 08:41 Dose: 60 mg Methylprednisolone Sodium Succinate (Solu-Medrol) 60 mg IV Q12H [facility] Last Admin: 04/12/19 13:14 Dose: Not Given Oxycodone HCl (Oxycodone) 5 mg PO Q4H PRN PRN Reason: Pain (moderate 4-6) Last Admin: 04/09/19 20:19 Dose: 5 mg - Exam General: Cooperative, No Acute Distress Neck: Supple Lungs: Clear to Auscultation, Normal Respiratory Effort Cardiovascular: Regular Rate, Regular Rhythm Extremities: Non-Tender, No Pedal Edema Skin: Warm, Dry, Intact - Problem List Review Problem List Initiated/Reviewed/Updated: Yes - Plan Plan:: This 89 year old male admitted with acute on chronic hypoxic respiratory failure , CHF exacerbation, and CAP CAP: Continue Cefdinir and Doxycycline. Dispo: pending placement
[2019-04-16] MEDS: Fluticasone Propionate Nasal Spray 16 GM Bottle NASBOTH SCH (16:19)
[2019-04-16] MEDS: Simvastatin 20 MG Tab PO SCH (20:43)
[2019-04-17] MEDS: Furosemide 20 MG Tab PO SCH (09:01)
[2019-04-17] MEDS: Cefdinir 300 MG Cap PO SCH ×2 (09:01→20:29)
[2019-04-17] MEDS: Clopidogrel 75 MG Tab PO SCH (09:01)
[2019-04-17] MEDS: risperiDONE 0.25 MG Tab PO SCH ×2 (09:01→20:30)
[2019-04-17] MEDS: Aspirin 81 MG Tab.Chew PO SCH (09:01)
[2019-04-17] MEDS: Metoprolol Succinate 25 MG Tab.ER PO SCH (09:02)
[2019-04-17] MEDS: Nicotine 14 MG/24 Hr Patch TRDERM SCH (09:03)
[2019-04-17] MEDS: amLODIPine 5 MG Tab PO SCH (09:03)
[2019-04-17] MEDS: Heparin Sodium 5,000 Units/ML Vial SUBCUT SCH ×2 (09:04→15:55)
[2019-04-17] MEDS: Doxycycline 100 MG Cap PO SCH ×2 (09:06→20:30)
[2019-04-17] MEDS: Fluticasone Propionate Nasal Spray 16 GM Bottle NASBOTH SCH (09:07)
--- NOTE | 2019-04-17 09:20 | PCM.PN ---
- General Info Date of Service: 04/17/19 - Review of Systems Systems Review Comment:: no complaints, is eager for discharge - Patient Data Vitals - Most Recent: Last Vital Signs Temp 36.2 C 04/17/19 08:00 Pulse 64 04/17/19 09:02 Resp 18 04/17/19 08:00 BP 107/65 04/17/19 09:03 Pulse Ox 97 04/17/19 08:00 Weight - Most Recent: 61.961 kg I&O - Last 24 Hours: Intake & Output 04/16/19 04/17/19 04/17/19 22:59 06:59 14:59 Intake Total 650 600 Output Total 0 400 Balance 650 200 Med Orders - Current: Current Medications Acetaminophen (Tylenol) 650 mg PO Q4H PRN PRN Reason: Pain (Mild 1-3)/fever Albuterol/Ipratropium (Duoneb 3.0-0.5 Mg/3 Ml) 3 ml NEB Q6HRRT PRN PRN Reason: Wheezing Amlodipine Besylate (Norvasc) 5 mg PO DAILY [facility] Last Admin: 04/17/19 09:03 Dose: 5 mg Aspirin (Aspirin) 81 mg PO DAILY [facility] Last Admin: 04/17/19 09:01 Dose: 81 mg Cefdinir (Omnicef) 300 mg PO BID [facility] Last Admin: 04/17/19 09:01 Dose: 300 mg Clopidogrel Bisulfate (Plavix) 75 mg PO DAILY [facility] Last Admin: 04/17/19 09:01 Dose: 75 mg Docusate Sodium (Colace) 100 mg PO BID PRN PRN Reason: Constipation Doxycycline Hyclate (Vibramycin) 100 mg PO BID [facility] Last Admin: 04/17/19 09:06 Dose: 100 mg Famotidine (Pepcid) 20 mg PO DAILY PRN PRN Reason: Heartburn Fluticasone Propionate (Flonase) 0 gm NASBOTH DAILY [facility] Last Admin: 04/17/19 09:07 Dose: 1 spray Furosemide (Lasix) 20 mg PO DAILY [facility] Last Admin: 04/17/19 09:01 Dose: 20 mg Heparin Sodium (Porcine) (Heparin Sodium) 5,000 units SUBCUT Q8H [facility] Last Admin: 04/17/19 09:04 Dose: 5,000 units Metoprolol Succinate (Toprol Xl) 25 mg PO DAILY [facility] Last Admin: 04/17/19 09:02 Dose: 25 mg Nicotine (Habitrol) 14 mg TRDERM DAILY [facility] Last Admin: 04/17/19 09:03 Dose: 14 mg Risperidone (Risperidal) 0.25 mg PO BID [facility] Last Admin: 04/17/19 09:01 Dose: 0.25 mg Simvastatin (Zocor) 20 mg PO BEDTIME [facility] Last Admin: 04/16/19 20:43 Dose: 20 mg Sodium Chloride (Saline Flush) 10 ml FLUSH ASDIRECTED PRN PRN Reason: Keep Vein Open Sodium Chloride (Saline Flush) 2.5 ml FLUSH ASDIRECTED PRN PRN Reason: Keep Vein Open Discontinued Medications Albuterol/Ipratropium (Duoneb 3.0-0.5 Mg/3 Ml) 3 ml NEB ONETIME ONE Stop: 04/08/19 05:32 Last Admin: 04/08/19 05:31 Dose: 3 ml Albuterol/Ipratropium (Duoneb 3.0-0.5 Mg/3 Ml) 3 ml NEB Q4HRRT PRN PRN Reason: Shortness Of Breath/wheezing Last Admin: 04/09/19 22:43 Dose: 3 ml Albuterol/Ipratropium (Duoneb 3.0-0.5 Mg/3 Ml) 3 ml NEB Q6HRRT [facility] Last Admin: 04/13/19 05:44 Dose: 3 ml Cefdinir (Omnicef) 300 mg PO BID [facility] Last Admin: 04/15/19 20:12 Dose: 300 mg Furosemide (Lasix) 20 mg IVPUSH NOW ONE Stop: 04/08/19 06:24 Last Admin: 04/08/19 06:29 Dose: 20 mg Furosemide (Lasix) 20 mg IVPUSH BIDDIURETIC [facility] Last Admin: 04/08/19 10:08 Dose: Not Given Furosemide (Lasix) 20 mg IVPUSH BIDDIURETIC [facility] Last Admin: 04/12/19 13:14 Dose: Not Given Furosemide (Lasix) 20 mg IVPUSH NOW ONE Stop: 04/10/19 05:31 Last Admin: 04/10/19 05:34 Dose: 20 mg Haloperidol (Haldol) 5 mg PO Q6H PRN PRN Reason: Agitation Haloperidol Lactate (Haldol) 5 mg IM ONETIME ONE Stop: 04/08/19 20:59 Last Admin: 04/08/19 21:09 Dose: 5 mg Haloperidol Lactate (Haldol) 5 mg IM ONETIME ONE Stop: 04/09/19 22:27 Last Admin: 04/09/19 22:42 Dose: 5 mg Haloperidol Lactate (Haldol) 5 mg IM ONETIME ONE Stop: 04/10/19 01:55 Last Admin: 04/10/19 02:00 Dose: 5 mg Haloperidol Lactate (Haldol) 5 mg IM ONETIME ONE Stop: 04/10/19 09:37 Last Admin: 04/10/19 09:47 Dose: 5 mg Haloperidol Lactate (Haldol) 5 mg IM ONETIME ONE Stop: 04/12/19 01:09 Last Admin: 04/12/19 01:23 Dose: 5 mg Haloperidol Lactate (Haldol) 5 mg IM ONETIME ONE Stop: 04/12/19 02:25 Last Admin: 04/12/19 02:37 Dose: 5 mg Sodium Chloride (Normal Saline) 1,000 mls @ 125 mls/hr IV STAT [facility] Last Admin: 04/08/19 05:52 Dose: 125 mls/hr Ceftriaxone Sodium/Dextrose 1 (gm/ Premix) 50 mls @ 100 mls/hr IV ONETIME ONE Stop: 04/08/19 06:51 Last Admin: 04/08/19 06:32 Dose: 100 mls/hr Azithromycin 500 mg/ Sodium (Chloride) 500 mls @ 250 mls/hr IV ONETIME ONE Stop: 04/08/19 08:24 Last Admin: 04/08/19 11:18 Dose: Not Given Azithromycin 500 mg/ Sodium (Chloride) 250 mls @ 250 mls/hr IV ONETIME ONE Stop: 04/08/19 07:24 Last Admin: 04/08/19 08:20 Dose: 250 mls/hr Ceftriaxone Sodium 1 gm/ (Sodium Chloride) 50 mls @ 100 mls/hr IV Q24H [facility] Last Admin: 04/12/19 05:28 Dose: 100 mls/hr Lorazepam (Ativan) 1 mg PO ONETIME ONE Stop: 04/08/19 21:01 Last Admin: 04/08/19 20:19 Dose: 1 mg Methylprednisolone Sodium Succinate (Solu-Medrol) 125 mg IVPUSH ONETIME ONE Stop: 04/08/19 05:32 Last Admin: 04/08/19 05:36 Dose: 125 mg Methylprednisolone Sodium Succinate (Solu-Medrol) 60 mg IV Q8H [facility] Last Admin: 04/11/19 08:41 Dose: 60 mg Methylprednisolone Sodium Succinate (Solu-Medrol) 60 mg IV Q12H [facility] Last Admin: 04/12/19 13:14 Dose: Not Given Oxycodone HCl (Oxycodone) 5 mg PO Q4H PRN PRN Reason: Pain (moderate 4-6) Last Admin: 04/09/19 20:19 Dose: 5 mg - Exam General: Cooperative, No Acute Distress Lungs: Clear to Auscultation, Normal Respiratory Effort Cardiovascular: Regular Rate, Regular Rhythm Extremities: Non-Tender, No Pedal Edema Skin: Warm, Dry, Intact - Problem List Review Problem List Initiated/Reviewed/Updated: Yes - Plan Plan:: This 89 year old male admitted with acute on chronic hypoxic respiratory failure , CHF exacerbation, and CAP CAP: Continue Cefdinir and Doxycycline. Dispo: pending placement
[2019-04-17] MEDS: Simvastatin 20 MG Tab PO SCH (20:29)
[2019-04-18] MEDS: Heparin Sodium 5,000 Units/ML Vial SUBCUT SCH ×3 (01:48→16:56)
[2019-04-18] MEDS: Nicotine 14 MG/24 Hr Patch TRDERM SCH (08:21)
[2019-04-18] MEDS: Metoprolol Succinate 25 MG Tab.ER PO SCH (08:28)
[2019-04-18] MEDS: Furosemide 20 MG Tab PO SCH (08:29)
[2019-04-18] MEDS: Clopidogrel 75 MG Tab PO SCH (08:29)
[2019-04-18] MEDS: amLODIPine 5 MG Tab PO SCH (08:30)
[2019-04-18] MEDS: risperiDONE 0.25 MG Tab PO SCH ×2 (08:30→20:24)
[2019-04-18] MEDS: Aspirin 81 MG Tab.Chew PO SCH (08:30)
[2019-04-18] MEDS: Cefdinir 300 MG Cap PO SCH ×2 (08:30→20:24)
[2019-04-18] MEDS: Fluticasone Propionate Nasal Spray 16 GM Bottle NASBOTH SCH (08:32)
[2019-04-18] MEDS: Doxycycline 100 MG Cap PO SCH ×2 (08:33→20:24)
--- NOTE | 2019-04-18 08:52 | PCM.PN ---
- General Info Date of Service: 04/18/19 Admission Dx/Problem (Free Text): CAP Subjective Update: Alert this morning, more settled. Still somewhat confused. Disoriented to place and time. easily reoriented. Very pleasant. Denies pain or any concerns. Bren, significant other, at bedside awaiting to hear from SNF regarding placement. Functional Status: Reports: Pain Controlled, Tolerating Diet, Ambulating, Urinating - Review of Systems General: Reports: No Symptoms. Denies: Weakness, Malaise HEENT: Reports: No Symptoms. Denies: Headaches, Sore Throat Pulmonary: Reports: No Symptoms. Denies: Shortness of Breath Cardiovascular: Reports: No Symptoms. Denies: Chest Pain Gastrointestinal: Reports: No Symptoms. Denies: Abdominal Pain, Nausea, Vomiting Genitourinary: Reports: No Symptoms Musculoskeletal: Reports: No Symptoms Skin: Reports: No Symptoms Neurological: Reports: No Symptoms Psychiatric: Reports: No Symptoms - Patient Data Vitals - Most Recent: Last Vital Signs Temp 97 F 04/18/19 08:00 Pulse 72 04/18/19 08:28 Resp 18 04/18/19 08:00 BP 109/51 L 04/18/19 08:30 Pulse Ox 96 04/18/19 08:00 Weight - Most Recent: 64.682 kg I&O - Last 24 Hours: Intake & Output 04/17/19 04/18/19 04/18/19 22:59 06:59 14:59 Intake Total 1050 200 Output Total 0 Balance 1050 200 Med Orders - Current: Current Medications Acetaminophen (Tylenol) 650 mg PO Q4H PRN PRN Reason: Pain (Mild 1-3)/fever Albuterol/Ipratropium (Duoneb 3.0-0.5 Mg/3 Ml) 3 ml NEB Q6HRRT PRN PRN Reason: Wheezing Amlodipine Besylate (Norvasc) 5 mg PO DAILY [facility] Last Admin: 04/18/19 08:30 Dose: 5 mg Aspirin (Aspirin) 81 mg PO DAILY [facility] Last Admin: 04/18/19 08:30 Dose: 81 mg Cefdinir (Omnicef) 300 mg PO BID [facility] Last Admin: 04/18/19 08:30 Dose: 300 mg Clopidogrel Bisulfate (Plavix) 75 mg PO DAILY [facility] Last Admin: 04/18/19 08:29 Dose: 75 mg Docusate Sodium (Colace) 100 mg PO BID PRN PRN Reason: Constipation Doxycycline Hyclate (Vibramycin) 100 mg PO BID [facility] Last Admin: 04/18/19 08:33 Dose: 100 mg Famotidine (Pepcid) 20 mg PO DAILY PRN PRN Reason: Heartburn Fluticasone Propionate (Flonase) 0 gm NASBOTH DAILY [facility] Last Admin: 04/18/19 08:32 Dose: 1 spray Furosemide (Lasix) 20 mg PO DAILY [facility] Last Admin: 04/18/19 08:29 Dose: 20 mg Heparin Sodium (Porcine) (Heparin Sodium) 5,000 units SUBCUT Q8H [facility] Last Admin: 04/18/19 08:19 Dose: 5,000 units Metoprolol Succinate (Toprol Xl) 25 mg PO DAILY [facility] Last Admin: 04/18/19 08:28 Dose: 25 mg Nicotine (Habitrol) 14 mg TRDERM DAILY [facility] Last Admin: 04/18/19 08:21 Dose: 14 mg Risperidone (Risperidal) 0.25 mg PO BID [facility] Last Admin: 04/18/19 08:30 Dose: 0.25 mg Simvastatin (Zocor) 20 mg PO BEDTIME [facility] Last Admin: 04/17/19 20:29 Dose: 20 mg Sodium Chloride (Saline Flush) 10 ml FLUSH ASDIRECTED PRN PRN Reason: Keep Vein Open Sodium Chloride (Saline Flush) 2.5 ml FLUSH ASDIRECTED PRN PRN Reason: Keep Vein Open Discontinued Medications Albuterol/Ipratropium (Duoneb 3.0-0.5 Mg/3 Ml) 3 ml NEB ONETIME ONE Stop: 04/08/19 05:32 Last Admin: 04/08/19 05:31 Dose: 3 ml Albuterol/Ipratropium (Duoneb 3.0-0.5 Mg/3 Ml) 3 ml NEB Q4HRRT PRN PRN Reason: Shortness Of Breath/wheezing Last Admin: 04/09/19 22:43 Dose: 3 ml Albuterol/Ipratropium (Duoneb 3.0-0.5 Mg/3 Ml) 3 ml NEB Q6HRRT [facility] Last Admin: 04/13/19 05:44 Dose: 3 ml Cefdinir (Omnicef) 300 mg PO BID [facility] Last Admin: 04/15/19 20:12 Dose: 300 mg Furosemide (Lasix) 20 mg IVPUSH NOW ONE Stop: 04/08/19 06:24 Last Admin: 04/08/19 06:29 Dose: 20 mg Furosemide (Lasix) 20 mg IVPUSH BIDDIURETIC [facility] Last Admin: 04/08/19 10:08 Dose: Not Given Furosemide (Lasix) 20 mg IVPUSH BIDDIURETIC [facility] Last Admin: 04/12/19 13:14 Dose: Not Given Furosemide (Lasix) 20 mg IVPUSH NOW ONE Stop: 04/10/19 05:31 Last Admin: 04/10/19 05:34 Dose: 20 mg Haloperidol (Haldol) 5 mg PO Q6H PRN PRN Reason: Agitation Haloperidol Lactate (Haldol) 5 mg IM ONETIME ONE Stop: 04/08/19 20:59 Last Admin: 04/08/19 21:09 Dose: 5 mg Haloperidol Lactate (Haldol) 5 mg IM ONETIME ONE Stop: 04/09/19 22:27 Last Admin: 04/09/19 22:42 Dose: 5 mg Haloperidol Lactate (Haldol) 5 mg IM ONETIME ONE Stop: 04/10/19 01:55 Last Admin: 04/10/19 02:00 Dose: 5 mg Haloperidol Lactate (Haldol) 5 mg IM ONETIME ONE Stop: 04/10/19 09:37 Last Admin: 04/10/19 09:47 Dose: 5 mg Haloperidol Lactate (Haldol) 5 mg IM ONETIME ONE Stop: 04/12/19 01:09 Last Admin: 04/12/19 01:23 Dose: 5 mg Haloperidol Lactate (Haldol) 5 mg IM ONETIME ONE Stop: 04/12/19 02:25 Last Admin: 04/12/19 02:37 Dose: 5 mg Sodium Chloride (Normal Saline) 1,000 mls @ 125 mls/hr IV STAT [facility]O Last Admin: 04/08/19 05:52 Dose: 125 mls/hr Ceftriaxone Sodium/Dextrose 1 (gm/ Premix) 50 mls @ 100 mls/hr IV ONETIME ONE Stop: 04/08/19 06:51 Last Admin: 04/08/19 06:32 Dose: 100 mls/hr Azithromycin 500 mg/ Sodium (Chloride) 500 mls @ 250 mls/hr IV ONETIME ONE Stop: 04/08/19 08:24 Last Admin: 04/08/19 11:18 Dose: Not Given Azithromycin 500 mg/ Sodium (Chloride) 250 mls @ 250 mls/hr IV ONETIME ONE Stop: 04/08/19 07:24 Last Admin: 04/08/19 08:20 Dose: 250 mls/hr Ceftriaxone Sodium 1 gm/ (Sodium Chloride) 50 mls @ 100 mls/hr IV Q24H [facility] Last Admin: 04/12/19 05:28 Dose: 100 mls/hr Lorazepam (Ativan) 1 mg PO ONETIME ONE Stop: 04/08/19 21:01 Last Admin: 04/08/19 20:19 Dose: 1 mg Methylprednisolone Sodium Succinate (Solu-Medrol) 125 mg IVPUSH ONETIME ONE Stop: 04/08/19 05:32 Last Admin: 04/08/19 05:36 Dose: 125 mg Methylprednisolone Sodium Succinate (Solu-Medrol) 60 mg IV Q8H [facility] Last Admin: 04/11/19 08:41 Dose: 60 mg Methylprednisolone Sodium Succinate (Solu-Medrol) 60 mg IV Q12H [facility] Last Admin: 04/12/19 13:14 Dose: Not Given Oxycodone HCl (Oxycodone) 5 mg PO Q4H PRN PRN Reason: Pain (moderate 4-6) Last Admin: 04/09/19 20:19 Dose: 5 mg - Exam General: Alert, Cooperative, No Acute Distress. No: Oriented Neck: Supple Lungs: Clear to Auscultation, Normal Respiratory Effort Cardiovascular: Regular Rate, Regular Rhythm GI/Abdominal Exam: Normal Bowel Sounds, Soft, Non-Tender Extremities: Normal Inspection, Normal Range of Motion, Non-Tender, No Pedal Edema Neurological: No New Focal Deficit Psy/Mental Status: Alert, Normal Affect, Normal Mood. No: Anxious, Agitated - Problem List & Annotations (1) CHF (congestive heart failure) SNOMED Code(s): 71533721 Code(s): I50.9 - HEART FAILURE, UNSPECIFIED Status: Chronic Current Visit : Yes Qualifiers: Heart failure type: unspecified Heart failure chronicity: chronic Qualified Code(s): I50.9 - Heart failure, unspecified (2) Chronic hyponatremia SNOMED Code(s): 94886027 Code(s): E87.1 - HYPO-OSMOLALITY AND HYPONATREMIA Status: Acute Current Visit: Yes (3) Smoker SNOMED Code(s): 86733425 Code(s): F17.200 - NICOTINE DEPENDENCE, UNSPECIFIED, UNCOMPLICATED Status: Chronic Priority: High Current Visit: Yes (4) C2 cervical fracture SNOMED Code(s): 475502725 Code(s): S12.100A - UNSP DISP FX OF SECOND CERVICAL VERTEBRA, INIT FOR CLOS FX Status: Acute Priority: High Current Visit: No Qualifiers: Encounter type: subsequent encounter Fracture type: closed Fracture morphology: unspecified fracture morphology Fracture alignment: nondisplaced Fracture healing: with routine healing Qualified Code(s): S12.101D - Unspecified nondisplaced fracture of second cervical vertebra, subsequent encounter for fracture with routine healing (5) COPD (chronic obstructive pulmonary disease) SNOMED Code(s): 84052661 Code(s): J44.9 - CHRONIC OBSTRUCTIVE PULMONARY DISEASE, UNSPECIFIED Status : Chronic Current Visit: Yes Qualifiers: COPD type: chronic bronchitis (6) CAD (coronary artery disease) SNOMED Code(s): 14882284 Code(s): I25.10 - ATHSCL HEART DISEASE OF [place] CORONARY ARTERY W/O ANG PCTRS Status: Chronic Current Visit: Yes - Problem List Review Problem List Initiated/Reviewed/Updated: Yes - Plan Plan:: This 89 year old male admitted with acute on chronic hypoxic respiratory failure , CHF exacerbation, and CAP 1. CAP: Completely treated. Will stop antibiotics after this evenings dose. 2. CAD: Continue statin, Metoprolol, ASA and Plavix. Stable. 4. COPD: stable, Continue Duonebs PRN. 3. CHF: Stable, Continue Lasix 20 mg PO Dispo: pending placement in SNF
[2019-04-18] MEDS: Simvastatin 20 MG Tab PO SCH (20:24)
[2019-04-19] MEDS: Heparin Sodium 5,000 Units/ML Vial SUBCUT SCH ×2 (00:50→09:38)
--- NOTE | 2019-04-19 09:07 | PCM.DCSUM1 ---
Addendum entered and electronically signed by Clarissa Read NP 04/19/19 11:12 : Discharge Summary - Hospital Course Free Text/Narrative:: Nakul will go home today with Home health services. He is in need of group home care to monitor new medications started, Risperidone and Lasix. Monitor weight due to CHF and breathing difficulties with recent pneumonia, COPD and CHF exacerbation. He is homebound, unable to drive or leave unless caregiver drives him to appointments and leaving the house would be taxing due to CHF and COPD as well as his need of walker to steady his gait. His Home health plan of care is to be follow by PCP, Dr Lim. Brief History: The patient is an 89-year-old gentleman who has been admitted hospitalization before had presented to the emergency department with a complaint of shortness of breath. The patient has a history of hyponatremia and he had been taken off of his Lasix in order to help improve this. The patient had been attempting to work, got severely short of breath and had to present to the emergency department. He had an oxygen saturation at home of 85% and had been in respiratory distress in the emergency department. The patient previously had been hospitalized for similar episodes in February 2019. It should be noted that the patient does have a cervical fracture that is in the process of healing and he is required to wear a soft cervical collar continuously. The patient has denied any fever or chills. Diagnosis: Stroke: No - Discharge Data Discharge Date: 04/19/19 Discharge Disposition: Home, W Home Health Agency Condition: Good - Discharge Diagnosis/Problem(s) (1) CHF (congestive heart failure) SNOMED Code(s): 38156132 ICD Code: I50.9 - HEART FAILURE, UNSPECIFIED Status: Chronic Current Visit: Yes Qualifiers: Heart failure type: unspecified Heart failure chronicity: chronic Qualified Code(s): I50.9 - Heart failure, unspecified (2) Chronic hyponatremia SNOMED Code(s): 73048272 ICD Code: E87.1 - HYPO-OSMOLALITY AND HYPONATREMIA Status: Acute Current Visit: Yes (3) Smoker SNOMED Code(s): 63705700 ICD Code: F17.200 - NICOTINE DEPENDENCE, UNSPECIFIED, UNCOMPLICATED Status : Chronic Priority: High Current Visit: Yes (4) C2 cervical fracture SNOMED Code(s): 306354984 ICD Code: S12.100A - UNSP DISP FX OF SECOND CERVICAL VERTEBRA, INIT FOR CLOS FX Status: Acute Priority: High Current Visit: No Qualifiers: Encounter type: subsequent encounter Fracture type: closed Fracture morphology: unspecified fracture morphology Fracture alignment: nondisplaced Fracture healing: with routine healing Qualified Code(s): S12.101D - Unspecified nondisplaced fracture of second cervical vertebra, subsequent encounter for fracture with routine healing (5) COPD (chronic obstructive pulmonary disease) SNOMED Code(s): 20774926 ICD Code: J44.9 - CHRONIC OBSTRUCTIVE PULMONARY DISEASE, UNSPECIFIED Status : Chronic Current Visit: Yes Qualifiers: COPD type: chronic bronchitis (6) CAD (coronary artery disease) SNOMED Code(s): 79231118 ICD Code: I25.10 - ATHSCL HEART DISEASE OF [place] CORONARY ARTERY W/O ANG PCTRS Status: Chronic Current Visit: Yes - Patient Instructions Diet: Heart Healthy Diet Activity: No Strenuous Activities, Rest and Relax Today Driving: Do Not Drive (No driving tractors) Showering/Bathing: May Shower Notify Provider of: Fever, Increased Pain, Swelling and Redness, Drainage, Nausea and/or Vomiting - Discharge Plan *PRESCRIPTION DRUG MONITORING PROGRAM REVIEWED*: Not Applicable *COPY OF PRESCRIPTION DRUG MONITORING REPORT IN PATIENT LARISSA: Not Applicable Prescriptions/Med Rec: Furosemide [Lasix] 20 mg PO DAILY #15 tablet risperiDONE [RisperiDAL] 0.25 mg PO BID #60 tablet Home Medications: Home Meds Aspirin 81 mg PO DAILY 01/25/16 [History] Clopidogrel [Plavix] 75 mg PO DAILY 01/25/16 [History] Cod Liver Oil 1 tab PO DAILY 01/25/16 [History] Metoprolol Succinate [Toprol XL] 25 mg PO DAILY 01/25/16 [History] Ranitidine [Zantac] 150 mg PO DAILY PRN 01/25/16 [History] Simvastatin [Zocor] 20 mg PO BEDTIME 01/25/16 [History] amLODIPine [Norvasc] 5 mg PO DAILY 01/25/16 [History] Cholecalciferol (Vitamin D3) [Vitamin D3] 2,000 unit PO DAILY 02/21/19 [History] Fluticasone Propionate [Flonase] 1 spray NASBOTH DAILY bottle 04/19/19 [Rx] Furosemide [Lasix] 20 mg PO DAILY #15 tablet 04/19/19 [Rx] risperiDONE [RisperiDAL] 0.25 mg PO BID #60 tablet 04/19/19 [Rx] Oxygen Therapy Mode: Room Air Patient Handouts: Hypoxia, Furosemide tablets, Risperidone tablets, Heart Failure, [id number] Referrals: [facility] [Outside] Kranthi Lim MD [Primary Care Provider] - 04/21/19 9:00 am - Discharge Summary/Plan Comment DC Time >30 min.: No - Patient Data Vitals - Most Recent: Last Vital Signs Temp 97.2 F 04/18/19 21:00 Pulse 71 04/19/19 09:21 Resp 17 04/18/19 21:00 BP 93/59 L 04/19/19 09:21 Pulse Ox 99 04/18/19 21:00 Weight - Most Recent: 60.509 kg I&O - Last 24 hours: Intake & Output 04/18/19 04/19/19 04/19/19 22:59 06:59 14:59 Intake Total 480 340 Output Total 200 Balance 480 140 Med Orders - Current: Current Medications Acetaminophen (Tylenol) 650 mg PO Q4H PRN PRN Reason: Pain (Mild 1-3)/fever Albuterol/Ipratropium (Duoneb 3.0-0.5 Mg/3 Ml) 3 ml NEB Q6HRRT PRN PRN Reason: Wheezing Amlodipine Besylate (Norvasc) 5 mg PO DAILY [facility] Last Admin: 04/19/19 09:19 Dose: 5 mg Aspirin (Aspirin) 81 mg PO DAILY [facility] Last Admin: 04/19/19 09:21 Dose: 81 mg Clopidogrel Bisulfate (Plavix) 75 mg PO DAILY [facility] Last Admin: 04/19/19 09:18 Dose: 75 mg Docusate Sodium (Colace) 100 mg PO BID PRN PRN Reason: Constipation Famotidine (Pepcid) 20 mg PO DAILY PRN PRN Reason: Heartburn Fluticasone Propionate (Flonase) 0 gm NASBOTH DAILY [facility] Last Admin: 04/19/19 09:25 Dose: 1 spray Furosemide (Lasix) 20 mg PO DAILY [facility] Last Admin: 04/19/19 09:21 Dose: 20 mg Heparin Sodium (Porcine) (Heparin Sodium) 5,000 units SUBCUT Q8H [facility] Last Admin: 04/19/19 09:38 Dose: 5,000 units Metoprolol Succinate (Toprol Xl) 25 mg PO DAILY [facility] Last Admin: 04/19/19 09:21 Dose: 25 mg Nicotine (Habitrol) 14 mg TRDERM DAILY [facility] Last Admin: 04/19/19 09:22 Dose: 14 mg Risperidone (Risperidal) 0.25 mg PO BID [facility] Last Admin: 04/19/19 09:17 Dose: 0.25 mg Simvastatin (Zocor) 20 mg PO BEDTIME [facility] Last Admin: 04/18/19 20:24 Dose: 20 mg Sodium Chloride (Saline Flush) 10 ml FLUSH ASDIRECTED PRN PRN Reason: Keep Vein Open Sodium Chloride (Saline Flush) 2.5 ml FLUSH ASDIRECTED PRN PRN Reason: Keep Vein Open Discontinued Medications Albuterol/Ipratropium (Duoneb 3.0-0.5 Mg/3 Ml) 3 ml NEB ONETIME ONE Stop: 04/08/19 05:32 Last Admin: 04/08/19 05:31 Dose: 3 ml Albuterol/Ipratropium (Duoneb 3.0-0.5 Mg/3 Ml) 3 ml NEB Q4HRRT PRN PRN Reason: Shortness Of Breath/wheezing Last Admin: 04/09/19 22:43 Dose: 3 ml Albuterol/Ipratropium (Duoneb 3.0-0.5 Mg/3 Ml) 3 ml NEB Q6HRRT [facility] Last Admin: 04/13/19 05:44 Dose: 3 ml Cefdinir (Omnicef) 300 mg PO BID [facility] Last Admin: 04/15/19 20:12 Dose: 300 mg Cefdinir (Omnicef) 300 mg PO BID [facility] Stop: 04/18/19 22:00 Last Admin: 04/18/19 20:24 Dose: 300 mg Doxycycline Hyclate (Vibramycin) 100 mg PO BID [facility] Stop: 04/18/19 22:00 Last Admin: 04/18/19 20:24 Dose: 100 mg Furosemide (Lasix) 20 mg IVPUSH NOW ONE Stop: 04/08/19 06:24 Last Admin: 04/08/19 06:29 Dose: 20 mg Furosemide (Lasix) 20 mg IVPUSH BIDDIURETIC [facility] Last Admin: 04/08/19 10:08 Dose: Not Given Furosemide (Lasix) 20 mg IVPUSH BIDDIURETIC [facility] Last Admin: 04/12/19 13:14 Dose: Not Given Furosemide (Lasix) 20 mg IVPUSH NOW ONE Stop: 04/10/19 05:31 Last Admin: 04/10/19 05:34 Dose: 20 mg Haloperidol (Haldol) 5 mg PO Q6H PRN PRN Reason: Agitation Haloperidol Lactate (Haldol) 5 mg IM ONETIME ONE Stop: 04/08/19 20:59 Last Admin: 04/08/19 21:09 Dose: 5 mg Haloperidol Lactate (Haldol) 5 mg IM ONETIME ONE Stop: 04/09/19 22:27 Last Admin: 04/09/19 22:42 Dose: 5 mg Haloperidol Lactate (Haldol) 5 mg IM ONETIME ONE Stop: 04/10/19 01:55 Last Admin: 04/10/19 02:00 Dose: 5 mg Haloperidol Lactate (Haldol) 5 mg IM ONETIME ONE Stop: 04/10/19 09:37 Last Admin: 04/10/19 09:47 Dose: 5 mg Haloperidol Lactate (Haldol) 5 mg IM ONETIME ONE Stop: 04/12/19 01:09 Last Admin: 04/12/19 01:23 Dose: 5 mg Haloperidol Lactate (Haldol) 5 mg IM ONETIME ONE Stop: 04/12/19 02:25 Last Admin: 04/12/19 02:37 Dose: 5 mg Sodium Chloride (Normal Saline) 1,000 mls @ 125 mls/hr IV STAT [facility] Last Admin: 04/08/19 05:52 Dose: 125 mls/hr Ceftriaxone Sodium/Dextrose 1 (gm/ Premix) 50 mls @ 100 mls/hr IV ONETIME ONE Stop: 04/08/19 06:51 Last Admin: 04/08/19 06:32 Dose: 100 mls/hr Azithromycin 500 mg/ Sodium (Chloride) 500 mls @ 250 mls/hr IV ONETIME ONE Stop: 04/08/19 08:24 Last Admin: 04/08/19 11:18 Dose: Not Given Azithromycin 500 mg/ Sodium (Chloride) 250 mls @ 250 mls/hr IV ONETIME ONE Stop: 04/08/19 07:24 Last Admin: 04/08/19 08:20 Dose: 250 mls/hr Ceftriaxone Sodium 1 gm/ (Sodium Chloride) 50 mls @ 100 mls/hr IV Q24H [facility] Last Admin: 04/12/19 05:28 Dose: 100 mls/hr Lorazepam (Ativan) 1 mg PO ONETIME ONE Stop: 04/08/19 21:01 Last Admin: 04/08/19 20:19 Dose: 1 mg Methylprednisolone Sodium Succinate (Solu-Medrol) 125 mg IVPUSH ONETIME ONE Stop: 04/08/19 05:32 Last Admin: 04/08/19 05:36 Dose: 125 mg Methylprednisolone Sodium Succinate (Solu-Medrol) 60 mg IV Q8H [facility] Last Admin: 04/11/19 08:41 Dose: 60 mg Methylprednisolone Sodium Succinate (Solu-Medrol) 60 mg IV Q12H [facility] Last Admin: 04/12/19 13:14 Dose: Not Given Oxycodone HCl (Oxycodone) 5 mg PO Q4H PRN PRN Reason: Pain (moderate 4-6) Last Admin: 04/09/19 20:19 Dose: 5 mg Addendum entered and electronically signed by Clarissa Read NP 04/19/19 10:52 : Discharge Summary - Hospital Course Free Text/Narrative:: Resume Home Health Brief History: The patient is an 89-year-old gentleman who has been admitted hospitalization before had presented to the emergency department with a complaint of shortness of breath. The patient has a history of hyponatremia and he had been taken off of his Lasix in order to help improve this. The patient had been attempting to work, got severely short of breath and had to present to the emergency department. He had an oxygen saturation at home of 85% and had been in respiratory distress in the emergency department. The patient previously had been hospitalized for similar episodes in February 2019. It should be noted that the patient does have a cervical fracture that is in the process of healing and he is required to wear a soft cervical collar continuously. The patient has denied any fever or chills. Diagnosis: Stroke: No - Discharge Data Discharge Date: 04/19/19 Discharge Disposition: Home, W Home Health Agency 06 Condition: Good - Discharge Diagnosis/Problem(s) (1) CHF (congestive heart failure) SNOMED Code(s): 23162019 ICD Code: I50.9 - HEART FAILURE, UNSPECIFIED Status: Chronic Current Visit: Yes Qualifiers: Heart failure type: unspecified Heart failure chronicity: chronic Qualified Code(s): I50.9 - Heart failure, unspecified (2) Chronic hyponatremia SNOMED Code(s): 42561736 ICD Code: E87.1 - HYPO-OSMOLALITY AND HYPONATREMIA Status: Acute Current Visit: Yes (3) Smoker SNOMED Code(s): 91254198 ICD Code: F17.200 - NICOTINE DEPENDENCE, UNSPECIFIED, UNCOMPLICATED Status : Chronic Priority: High Current Visit: Yes (4) C2 cervical fracture SNOMED Code(s): 395659756 ICD Code: S12.100A - UNSP DISP FX OF SECOND CERVICAL VERTEBRA, INIT FOR CLOS FX Status: Acute Priority: High Current Visit: No Qualifiers: Encounter type: subsequent encounter Fracture type: closed Fracture morphology: unspecified fracture morphology Fracture alignment: nondisplaced Fracture healing: with routine healing Qualified Code(s): S12.101D - Unspecified nondisplaced fracture of second cervical vertebra, subsequent encounter for fracture with routine healing (5) COPD (chronic obstructive pulmonary disease) SNOMED Code(s): 48838243 ICD Code: J44.9 - CHRONIC OBSTRUCTIVE PULMONARY DISEASE, UNSPECIFIED Status : Chronic Current Visit: Yes Qualifiers: COPD type: chronic bronchitis (6) CAD (coronary artery disease) SNOMED Code(s): 91813444 ICD Code: I25.10 - ATHSCL HEART DISEASE OF [place] CORONARY ARTERY W/O ANG PCTRS Status: Chronic Current Visit: Yes - Patient Instructions Diet: Heart Healthy Diet Activity: No Strenuous Activities, Rest and Relax Today Driving: Do Not Drive (No driving tractors) Showering/Bathing: May Shower Notify Provider of: Fever, Increased Pain, Swelling and Redness, Drainage, Nausea and/or Vomiting - Discharge Plan *PRESCRIPTION DRUG MONITORING PROGRAM REVIEWED*: Not Applicable *COPY OF PRESCRIPTION DRUG MONITORING REPORT IN PATIENT LARISSA: Not Applicable Prescriptions/Med Rec: Furosemide [Lasix] 20 mg PO DAILY #15 tablet risperiDONE [RisperiDAL] 0.25 mg PO BID #60 tablet Home Medications: Home Meds Aspirin 81 mg PO DAILY 01/25/16 [History] Clopidogrel [Plavix] 75 mg PO DAILY 01/25/16 [History] Cod Liver Oil 1 tab PO DAILY 01/25/16 [History] Metoprolol Succinate [Toprol XL] 25 mg PO DAILY 01/25/16 [History] Ranitidine [Zantac] 150 mg PO DAILY PRN 01/25/16 [History] Simvastatin [Zocor] 20 mg PO BEDTIME 01/25/16 [History] amLODIPine [Norvasc] 5 mg PO DAILY 01/25/16 [History] Cholecalciferol (Vitamin D3) [Vitamin D3] 2,000 unit PO DAILY 02/21/19 [History] Fluticasone Propionate [Flonase] 1 spray NASBOTH DAILY bottle 04/19/19 [Rx] Furosemide [Lasix] 20 mg PO DAILY #15 tablet 04/19/19 [Rx] risperiDONE [RisperiDAL] 0.25 mg PO BID #60 tablet 04/19/19 [Rx] Oxygen Therapy Mode: Room Air Patient Handouts: Hypoxia, Furosemide tablets, Risperidone tablets, Heart Failure, [id number] Referrals: [facility] [Outside] Kranthi Lim MD [Primary Care Provider] - 04/21/19 9:00 am - Discharge Summary/Plan Comment DC Time >30 min.: Yes - Patient Data Vitals - Most Recent: Last Vital Signs Temp 97.2 F 04/18/19 21:00 Pulse 71 04/19/19 09:21 Resp 17 04/18/19 21:00 BP 93/59 L 04/19/19 09:21 Pulse Ox 99 04/18/19 21:00 Weight - Most Recent: 60.509 kg I&O - Last 24 hours: Intake & Output 04/18/19 04/19/19 04/19/19 22:59 06:59 14:59 Intake Total 480 340 Output Total 200 Balance 480 140 Med Orders - Current: Current Medications Acetaminophen (Tylenol) 650 mg PO Q4H PRN PRN Reason: Pain (Mild 1-3)/fever Albuterol/Ipratropium (Duoneb 3.0-0.5 Mg/3 Ml) 3 ml NEB Q6HRRT PRN PRN Reason: Wheezing Amlodipine Besylate (Norvasc) 5 mg PO DAILY [facility] Last Admin: 04/19/19 09:19 Dose: 5 mg Aspirin (Aspirin) 81 mg PO DAILY [facility] Last Admin: 04/19/19 09:21 Dose: 81 mg Clopidogrel Bisulfate (Plavix) 75 mg PO DAILY [facility] Last Admin: 04/19/19 09:18 Dose: 75 mg Docusate Sodium (Colace) 100 mg PO BID PRN PRN Reason: Constipation Famotidine (Pepcid) 20 mg PO DAILY PRN PRN Reason: Heartburn Fluticasone Propionate (Flonase) 0 gm NASBOTH DAILY [facility] Last Admin: 04/19/19 09:25 Dose: 1 spray Furosemide (Lasix) 20 mg PO DAILY [facility] Last Admin: 04/19/19 09:21 Dose: 20 mg Heparin Sodium (Porcine) (Heparin Sodium) 5,000 units SUBCUT Q8H [facility] Last Admin: 04/19/19 09:38 Dose: 5,000 units Metoprolol Succinate (Toprol Xl) 25 mg PO DAILY [facility] Last Admin: 04/19/19 09:21 Dose: 25 mg Nicotine (Habitrol) 14 mg TRDERM DAILY [facility] Last Admin: 04/19/19 09:22 Dose: 14 mg Risperidone (Risperidal) 0.25 mg PO BID [facility] Last Admin: 04/19/19 09:17 Dose: 0.25 mg Simvastatin (Zocor) 20 mg PO BEDTIME [facility] Last Admin: 04/18/19 20:24 Dose: 20 mg Sodium Chloride (Saline Flush) 10 ml FLUSH ASDIRECTED PRN PRN Reason: Keep Vein Open Sodium Chloride (Saline Flush) 2.5 ml FLUSH ASDIRECTED PRN PRN Reason: Keep Vein Open Discontinued Medications Albuterol/Ipratropium (Duoneb 3.0-0.5 Mg/3 Ml) 3 ml NEB ONETIME ONE Stop: 04/08/19 05:32 Last Admin: 04/08/19 05:31 Dose: 3 ml Albuterol/Ipratropium (Duoneb 3.0-0.5 Mg/3 Ml) 3 ml NEB Q4HRRT PRN PRN Reason: Shortness Of Breath/wheezing Last Admin: 04/09/19 22:43 Dose: 3 ml Albuterol/Ipratropium (Duoneb 3.0-0.5 Mg/3 Ml) 3 ml NEB Q6HRRT [facility] Last Admin: 04/13/19 05:44 Dose: 3 ml Cefdinir (Omnicef) 300 mg PO BID [facility] Last Admin: 04/15/19 20:12 Dose: 300 mg Cefdinir (Omnicef) 300 mg PO BID [facility] Stop: 04/18/19 22:00 Last Admin: 04/18/19 20:24 Dose: 300 mg Doxycycline Hyclate (Vibramycin) 100 mg PO BID [facility] Stop: 04/18/19 22:00 Last Admin: 04/18/19 20:24 Dose: 100 mg Furosemide (Lasix) 20 mg IVPUSH NOW ONE Stop: 04/08/19 06:24 Last Admin: 04/08/19 06:29 Dose: 20 mg Furosemide (Lasix) 20 mg IVPUSH BIDDIURETIC [facility] Last Admin: 04/08/19 10:08 Dose: Not Given Furosemide (Lasix) 20 mg IVPUSH BIDDIURETIC [facility] Last Admin: 04/12/19 13:14 Dose: Not Given Furosemide (Lasix) 20 mg IVPUSH NOW ONE Stop: 04/10/19 05:31 Last Admin: 04/10/19 05:34 Dose: 20 mg Haloperidol (Haldol) 5 mg PO Q6H PRN PRN Reason: Agitation Haloperidol Lactate (Haldol) 5 mg IM ONETIME ONE Stop: 04/08/19 20:59 Last Admin: 04/08/19 21:09 Dose: 5 mg Haloperidol Lactate (Haldol) 5 mg IM ONETIME ONE Stop: 04/09/19 22:27 Last Admin: 04/09/19 22:42 Dose: 5 mg Haloperidol Lactate (Haldol) 5 mg IM ONETIME ONE Stop: 04/10/19 01:55 Last Admin: 04/10/19 02:00 Dose: 5 mg Haloperidol Lactate (Haldol) 5 mg IM ONETIME ONE Stop: 04/10/19 09:37 Last Admin: 04/10/19 09:47 Dose: 5 mg Haloperidol Lactate (Haldol) 5 mg IM ONETIME ONE Stop: 04/12/19 01:09 Last Admin: 04/12/19 01:23 Dose: 5 mg Haloperidol Lactate (Haldol) 5 mg IM ONETIME ONE Stop: 04/12/19 02:25 Last Admin: 04/12/19 02:37 Dose: 5 mg Sodium Chloride (Normal Saline) 1,000 mls @ 125 mls/hr IV STAT [facility] Last Admin: 04/08/19 05:52 Dose: 125 mls/hr Ceftriaxone Sodium/Dextrose 1 (gm/ Premix) 50 mls @ 100 mls/hr IV ONETIME ONE Stop: 04/08/19 06:51 Last Admin: 04/08/19 06:32 Dose: 100 mls/hr Azithromycin 500 mg/ Sodium (Chloride) 500 mls @ 250 mls/hr IV ONETIME ONE Stop: 04/08/19 08:24 Last Admin: 04/08/19 11:18 Dose: Not Given Azithromycin 500 mg/ Sodium (Chloride) 250 mls @ 250 mls/hr IV ONETIME ONE Stop: 04/08/19 07:24 Last Admin: 04/08/19 08:20 Dose: 250 mls/hr Ceftriaxone Sodium 1 gm/ (Sodium Chloride) 50 mls @ 100 mls/hr IV Q24H [facility] Last Admin: 04/12/19 05:28 Dose: 100 mls/hr Lorazepam (Ativan) 1 mg PO ONETIME ONE Stop: 04/08/19 21:01 Last Admin: 04/08/19 20:19 Dose: 1 mg Methylprednisolone Sodium Succinate (Solu-Medrol) 125 mg IVPUSH ONETIME ONE Stop: 04/08/19 05:32 Last Admin: 04/08/19 05:36 Dose: 125 mg Methylprednisolone Sodium Succinate (Solu-Medrol) 60 mg IV Q8H [facility] Last Admin: 04/11/19 08:41 Dose: 60 mg Methylprednisolone Sodium Succinate (Solu-Medrol) 60 mg IV Q12H [facility] Last Admin: 04/12/19 13:14 Dose: Not Given Oxycodone HCl (Oxycodone) 5 mg PO Q4H PRN PRN Reason: Pain (moderate 4-6) Last Admin: 04/09/19 20:19 Dose: 5 mg Original Note: Discharge Summary - Hospital Course Brief History: The patient is an 89-year-old gentleman who has been admitted hospitalization before had presented to the emergency department with a complaint of shortness of breath. The patient has a history of hyponatremia and he had been taken off of his Lasix in order to help improve this. The patient had been attempting to work, got severely short of breath and had to present to the emergency department. He had an oxygen saturation at home of 85% and had been in respiratory distress in the emergency department. The patient previously had been hospitalized for similar episodes in February 2019. It should be noted that the patient does have a cervical fracture that is in the process of healing and he is required to wear a soft cervical collar continuously. The patient has denied any fever or chills. Diagnosis: Stroke: No - Discharge Data Discharge Date: 04/19/19 Discharge Disposition: Home, [facility] 06 Condition: Good - Discharge Diagnosis/Problem(s) (1) CHF (congestive heart failure) SNOMED Code(s): 97278855 ICD Code: I50.9 - HEART FAILURE, UNSPECIFIED Status: Chronic Current Visit: Yes Qualifiers: Heart failure type: unspecified Heart failure chronicity: chronic Qualified Code(s): I50.9 - Heart failure, unspecified (2) Chronic hyponatremia SNOMED Code(s): 09993091 ICD Code: E87.1 - HYPO-OSMOLALITY AND HYPONATREMIA Status: Acute Current Visit: Yes (3) Smoker SNOMED Code(s): 71075227 ICD Code: F17.200 - NICOTINE DEPENDENCE, UNSPECIFIED, UNCOMPLICATED Status : Chronic Priority: High Current Visit: Yes (4) C2 cervical fracture SNOMED Code(s): 573507443 ICD Code: S12.100A - UNSP DISP FX OF SECOND CERVICAL VERTEBRA, INIT FOR CLOS FX Status: Acute Priority: High Current Visit: No Qualifiers: Encounter type: subsequent encounter Fracture type: closed Fracture morphology: unspecified fracture morphology Fracture alignment: nondisplaced Fracture healing: with routine healing Qualified Code(s): S12.101D - Unspecified nondisplaced fracture of second cervical vertebra, subsequent encounter for fracture with routine healing (5) COPD (chronic obstructive pulmonary disease) SNOMED Code(s): 01748731 ICD Code: J44.9 - CHRONIC OBSTRUCTIVE PULMONARY DISEASE, UNSPECIFIED Status : Chronic Current Visit: Yes Qualifiers: COPD type: chronic bronchitis (6) CAD (coronary artery disease) SNOMED Code(s): 70178170 ICD Code: I25.10 - ATHSCL HEART DISEASE OF [place] CORONARY ARTERY W/O ANG PCTRS Status: Chronic Current Visit: Yes - Patient Instructions Diet: Heart Healthy Diet Activity: No Strenuous Activities, Rest and Relax Today Driving: Do Not Drive (No driving tractors) Showering/Bathing: May Shower Notify Provider of: Fever, Increased Pain, Swelling and Redness, Drainage, Nausea and/or Vomiting - Discharge Plan *PRESCRIPTION DRUG MONITORING PROGRAM REVIEWED*: Not Applicable *COPY OF PRESCRIPTION DRUG MONITORING REPORT IN PATIENT LARISSA: Not Applicable Prescriptions/Med Rec: Furosemide [Lasix] 20 mg PO DAILY #15 tablet risperiDONE [RisperiDAL] 0.25 mg PO BID #60 tablet Home Medications: Home Meds Aspirin 81 mg PO DAILY 01/25/16 [History] Clopidogrel [Plavix] 75 mg PO DAILY 01/25/16 [History] Cod Liver Oil 1 tab PO DAILY 01/25/16 [History] Metoprolol Succinate [Toprol XL] 25 mg PO DAILY 01/25/16 [History] Ranitidine [Zantac] 150 mg PO DAILY PRN 01/25/16 [History] Simvastatin [Zocor] 20 mg PO BEDTIME 01/25/16 [History] amLODIPine [Norvasc] 5 mg PO DAILY 01/25/16 [History] Cholecalciferol (Vitamin D3) [Vitamin D3] 2,000 unit PO DAILY 02/21/19 [History] Fluticasone Propionate [Flonase] 1 spray NASBOTH DAILY bottle 04/19/19 [Rx] Furosemide [Lasix] 20 mg PO DAILY #15 tablet 04/19/19 [Rx] risperiDONE [RisperiDAL] 0.25 mg PO BID #60 tablet 04/19/19 [Rx] Oxygen Therapy Mode: Room Air Patient Handouts: Hypoxia, Furosemide tablets, Risperidone tablets, Heart Failure, [id number] Referrals: [facility] [Outside] Kranthi Lim MD [Primary Care Provider] - 04/21/19 9:00 am - Discharge Summary/Plan Comment DC Time >30 min.: No Discharge Summary/Plan Comment: Admitting diagnoses: CAP COPD exacerbation CHF exacerbation AMS Hyponatremia Discharge Diagnoses: CAP COPD exacerbation CHF exacerbation AMS- acute delirium has resolves Hyponatremia-resolved Dementia Other PMH C2 fracture Smoker CAD Nakul was admitted and treated for CAP along with COPD and CHF exacerbation. Acute delirium was noted on admission and worsened after admission. Breathing concerns improved. Solumedrol was discontinued as it appeared this worsened mentation. CHF was treated with increased Lasix dosing and has been stable getting Lasix 20 mg PO, with hyponatremia resolution, last check was noted to be 139. Acute delirium steadily improved, he was near baseline per significant other Bren. I spoke with Dr Lim, PCP regarding dementia and sundowning which was noted in the hospital. Risperidone 0.25 mg BID was started, he has been noted to be more calm and less aggressive. Bren requested placement, but multiple SNF's around our area declined admission due to aggressive behaviors. Bren and Nakul's niece, Steff has helped set up 24 hour care at home for now. Bren will continue to talk with [facility] and other facilities regarding placement. He was fully treated for pneumonia during his stay with Azithromycin and Cefdinir. He will be discharged home today, continue home medications along with Risperidone. He is to continue soft c collar per surgeon directions. He is to not drive vehicles or heavy machinery including tractors upon discharge. He is to follow up with PCP in 1 week to insure improvement. He is to return to the ED or clinic if concerns should arise. - General Info Date of Service: 04/19/19 Admission Dx/Problem (Free Text: CAP Subjective Update: Alert, disoriented but at baseline this morning. No pain. no dyspnea. eager to go home. Bren is ok with discharge as she has care lined up. She plans on continuing talks with SNF in our area for placement. - Review of Systems General: Reports: No Symptoms. Denies: Weakness, Fatigue HEENT: Reports: No Symptoms. Denies: Headaches, Sore Throat, Visual Changes Pulmonary: Reports: No Symptoms. Denies: Shortness of Breath Cardiovascular: Reports: No Symptoms. Denies: Chest Pain Gastrointestinal: Reports: No Symptoms. Denies: Abdominal Pain, Nausea, Vomiting Genitourinary: Reports: No Symptoms Musculoskeletal: Reports: No Symptoms Skin: Reports: No Symptoms Neurological: Reports: No Symptoms Psychiatric: Reports: No Symptoms - Patient Data Vitals - Most Recent: Last Vital Signs Temp 97.2 F 04/18/19 21:00 Pulse 76 04/18/19 21:00 Resp 17 04/18/19 21:00 BP 126/56 L 04/18/19 21:00 Pulse Ox 99 04/18/19 21:00 Weight - Most Recent: 60.509 kg I&O - Last 24 hours: Intake & Output 04/18/19 04/19/19 04/19/19 22:59 06:59 14:59 Intake Total 480 340 Output Total 200 Balance 480 140 Med Orders - Current: Current Medications Acetaminophen (Tylenol) 650 mg PO Q4H PRN PRN Reason: Pain (Mild 1-3)/fever Albuterol/Ipratropium (Duoneb 3.0-0.5 Mg/3 Ml) 3 ml NEB Q6HRRT PRN PRN Reason: Wheezing Amlodipine Besylate (Norvasc) 5 mg PO DAILY [facility] Last Admin: 04/18/19 08:30 Dose: 5 mg Aspirin (Aspirin) 81 mg PO DAILY [facility] Last Admin: 04/18/19 08:30 Dose: 81 mg Clopidogrel Bisulfate (Plavix) 75 mg PO DAILY [facility] Last Admin: 04/18/19 08:29 Dose: 75 mg Docusate Sodium (Colace) 100 mg PO BID PRN PRN Reason: Constipation Famotidine (Pepcid) 20 mg PO DAILY PRN PRN Reason: Heartburn Fluticasone Propionate (Flonase) 0 gm NASBOTH DAILY [facility] Last Admin: 04/18/19 08:32 Dose: 1 spray Furosemide (Lasix) 20 mg PO DAILY [facility] Last Admin: 04/18/19 08:29 Dose: 20 mg Heparin Sodium (Porcine) (Heparin Sodium) 5,000 units SUBCUT Q8H [facility] Last Admin: 04/19/19 00:50 Dose: 5,000 units Metoprolol Succinate (Toprol Xl) 25 mg PO DAILY [facility] Last Admin: 04/18/19 08:28 Dose: 25 mg Nicotine (Habitrol) 14 mg TRDERM DAILY [facility] Last Admin: 04/18/19 08:21 Dose: 14 mg Risperidone (Risperidal) 0.25 mg PO BID [facility] Last Admin: 04/18/19 20:24 Dose: 0.25 mg Simvastatin (Zocor) 20 mg PO BEDTIME [facility] Last Admin: 04/18/19 20:24 Dose: 20 mg Sodium Chloride (Saline Flush) 10 ml FLUSH ASDIRECTED PRN PRN Reason: Keep Vein Open Sodium Chloride (Saline Flush) 2.5 ml FLUSH ASDIRECTED PRN PRN Reason: Keep Vein Open Discontinued Medications Albuterol/Ipratropium (Duoneb 3.0-0.5 Mg/3 Ml) 3 ml NEB ONETIME ONE Stop: 04/08/19 05:32 Last Admin: 04/08/19 05:31 Dose: 3 ml Albuterol/Ipratropium (Duoneb 3.0-0.5 Mg/3 Ml) 3 ml NEB Q4HRRT PRN PRN Reason: Shortness Of Breath/wheezing Last Admin: 04/09/19 22:43 Dose: 3 ml Albuterol/Ipratropium (Duoneb 3.0-0.5 Mg/3 Ml) 3 ml NEB Q6HRRT [facility] Last Admin: 04/13/19 05:44 Dose: 3 ml Cefdinir (Omnicef) 300 mg PO BID [facility] Last Admin: 04/15/19 20:12 Dose: 300 mg Cefdinir (Omnicef) 300 mg PO BID [facility] Stop: 04/18/19 22:00 Last Admin: 04/18/19 20:24 Dose: 300 mg Doxycycline Hyclate (Vibramycin) 100 mg PO BID [facility] Stop: 04/18/19 22:00 Last Admin: 04/18/19 20:24 Dose: 100 mg Furosemide (Lasix) 20 mg IVPUSH NOW ONE Stop: 04/08/19 06:24 Last Admin: 04/08/19 06:29 Dose: 20 mg Furosemide (Lasix) 20 mg IVPUSH BIDDIURETIC [facility] Last Admin: 04/08/19 10:08 Dose: Not Given Furosemide (Lasix) 20 mg IVPUSH BIDDIURETIC [facility] Last Admin: 04/12/19 13:14 Dose: Not Given Furosemide (Lasix) 20 mg IVPUSH NOW ONE Stop: 04/10/19 05:31 Last Admin: 04/10/19 05:34 Dose: 20 mg Haloperidol (Haldol) 5 mg PO Q6H PRN PRN Reason: Agitation Haloperidol Lactate (Haldol) 5 mg IM ONETIME ONE Stop: 04/08/19 20:59 Last Admin: 04/08/19 21:09 Dose: 5 mg Haloperidol Lactate (Haldol) 5 mg IM ONETIME ONE Stop: 04/09/19 22:27 Last Admin: 04/09/19 22:42 Dose: 5 mg Haloperidol Lactate (Haldol) 5 mg IM ONETIME ONE Stop: 04/10/19 01:55 Last Admin: 04/10/19 02:00 Dose: 5 mg Haloperidol Lactate (Haldol) 5 mg IM ONETIME ONE Stop: 04/10/19 09:37 Last Admin: 04/10/19 09:47 Dose: 5 mg Haloperidol Lactate (Haldol) 5 mg IM ONETIME ONE Stop: 04/12/19 01:09 Last Admin: 04/12/19 01:23 Dose: 5 mg Haloperidol Lactate (Haldol) 5 mg IM ONETIME ONE Stop: 04/12/19 02:25 Last Admin: 04/12/19 02:37 Dose: 5 mg Sodium Chloride (Normal Saline) 1,000 mls @ 125 mls/hr IV STAT NETO Last Admin: 04/08/19 05:52 Dose: 125 mls/hr Ceftriaxone Sodium/Dextrose 1 (gm/ Premix) 50 mls @ 100 mls/hr IV ONETIME ONE Stop: 04/08/19 06:51 Last Admin: 04/08/19 06:32 Dose: 100 mls/hr Azithromycin 500 mg/ Sodium (Chloride) 500 mls @ 250 mls/hr IV ONETIME ONE Stop: 04/08/19 08:24 Last Admin: 04/08/19 11:18 Dose: Not Given Azithromycin 500 mg/ Sodium (Chloride) 250 mls @ 250 mls/hr IV ONETIME ONE Stop: 04/08/19 07:24 Last Admin: 04/08/19 08:20 Dose: 250 mls/hr Ceftriaxone Sodium 1 gm/ (Sodium Chloride) 50 mls @ 100 mls/hr IV Q24H NETO Last Admin: 04/12/19 05:28 Dose: 100 mls/hr Lorazepam (Ativan) 1 mg PO ONETIME ONE Stop: 04/08/19 21:01 Last Admin: 04/08/19 20:19 Dose: 1 mg Methylprednisolone Sodium Succinate (Solu-Medrol) 125 mg IVPUSH ONETIME ONE Stop: 04/08/19 05:32 Last Admin: 04/08/19 05:36 Dose: 125 mg Methylprednisolone Sodium Succinate (Solu-Medrol) 60 mg IV Q8H NETO Last Admin: 04/11/19 08:41 Dose: 60 mg Methylprednisolone Sodium Succinate (Solu-Medrol) 60 mg IV Q12H NETO Last Admin: 04/12/19 13:14 Dose: Not Given Oxycodone HCl (Oxycodone) 5 mg PO Q4H PRN PRN Reason: Pain (moderate 4-6) Last Admin: 04/09/19 20:19 Dose: 5 mg - Exam General: Reports: Alert, Oriented, Cooperative Lungs: Reports: Clear to Auscultation, Normal Respiratory Effort Cardiovascular: Reports: Regular Rate, Regular Rhythm GI/Abdominal Exam: Normal Bowel Sounds, Soft, Non-Tender Back Exam: Reports: Normal Inspection, Full Range of Motion Skin: Reports: Warm, Dry, Ecchymosis (brusing from pokes and labwork noted.) Neurological: Reports: No New Focal Deficit Psy/Mental Status: Reports: Alert, Normal Affect. Denies: Agitated
[2019-04-19] MEDS: risperiDONE 0.25 MG Tab PO SCH (09:17)
[2019-04-19] MEDS: Clopidogrel 75 MG Tab PO SCH (09:18)
[2019-04-19] MEDS: amLODIPine 5 MG Tab PO SCH (09:19)
[2019-04-19] MEDS: Metoprolol Succinate 25 MG Tab.ER PO SCH (09:21)
[2019-04-19] MEDS: Furosemide 20 MG Tab PO SCH (09:21)
[2019-04-19] MEDS: Aspirin 81 MG Tab.Chew PO SCH (09:21)
[2019-04-19] MEDS: Nicotine 14 MG/24 Hr Patch TRDERM SCH (09:22)
[2019-04-19] MEDS: Fluticasone Propionate Nasal Spray 16 GM Bottle NASBOTH SCH (09:25)
[2019-04-19 09:39] VITALS: BP 93/59; PULSE 71
== END 2019-04-19 14:00 | disposition home health service (06) | DRG 291 ==
LOC: MW.ED 05:30 → MW.MS 06:30
PROVIDERS: ADMIT Internal Medicine; ATTEND Internal Medicine
DX: R09.02 Hypoxemia (principal); I11.0 Hypertensive heart disease with heart failure; J96.21 Acute and chronic respiratory failure with hypoxia; J18.9 Pneumonia, unspecified organism; J44.1 Chronic obstructive pulmonary disease with (acute) exacerbation; E87.1 Hypo-osmolality and hyponatremia; E78.00 Pure hypercholesterolemia, unspecified; F17.210 Nicotine dependence, cigarettes, uncomplicated; I25.10 Atherosclerotic heart disease of native coronary artery without angina pectoris; I50.9 Heart failure, unspecified; Z85.828 Personal history of other malignant neoplasm of skin; I25.2 Old myocardial infarction; S12.101D Unspecified nondisplaced fracture of second cervical vertebra, subsequent encounter for fracture with routine healing; R91.8 Other nonspecific abnormal finding of lung field; Z88.0 Allergy status to penicillin; Z79.02 Long term (current) use of antithrombotics/antiplatelets; Z79.82 Long term (current) use of aspirin; Z79.899 Other long term (current) drug therapy; Z95.5 Presence of coronary angioplasty implant and graft
CPT/HCPCS: 36415; 71045; 80053; 81001; 83880; 84484; 85025; 94640; 96361; 96375; 99285; J1940; J2930; J7040; 72141; 72141-26; 80048; 93005; 96365; 96367; 96374; 99284; A9270-GY; J0456; J0696; J1630; J1644; J7050; J7620-GY